=== PATIENT | male | born 1970 | race Caucasian/White ===

== ENCOUNTER 2017-01-19 16:33 | Inpatient (IN) | payer OTHER ==
--- NOTE | ~2017-01-19 | CO ---
Unit #: [id number] #: [id number] Patient: NADINE OWENS [id number] [address] [place], [place] [address] [id number] I MR#: [id number] NAME: NADINE OWENS ROOM: [facility] Age: 46 Sex: M Admission Date: 01/19/2017 : 1970 Attending Physician: Wali Romano M.D. Primary Care Physician: Daniela Primary Care Physician Consultation Date: 01/21/2017 CONSULTATION REPORT REASON FOR CONSULT Presumed acute kidney injury. HISTORY OF PRESENT ILLNESS Mr. Owens 46-year-old gentleman currently on the ventilator and sedated and not able to give any history. History was obtained from the chart and nursing staff. The patient had presented to the emergency room yesterday with trouble walking and feeling weak. Per the records, he developed respiratory distress and had to be intubated. Initial evaluation showed that he had a significant bilateral pneumonia and he has been started on broad-spectrum antibiotics. We were asked to see due to abnormal kidney function on admission. Unfortunately I do not have any recent creatinines to compare these to as he has not had a chemistry in the computer here for a number of years. He does have a history of hypertension so he may very well have some underlying chronic kidney disease and his sugars were high on admission as well. Due to his IV drug abuse an echo was done which did not show any vegetations but he only had an ejection fraction of 15%. Cardiology has placed him on dobutamine. He is making urine that is nonbloody. He is currently comfortable and on the vent. PAST MEDICAL HISTORY Past medical history is significant for hypertension, hypothyroidism, hyperlipidemia. HOME MEDICATIONS Home meds are levothyroxine, baby aspirin, Lipitor 80 mg daily and Maxzide one tablet daily. CURRENT HOME MEDICATIONS Current hospital medications are as follows. He is on vancomycin per pharmacy dosing, DuoNeb inhaler, Protonix 40 mg IV daily, Lovenox 40 mg subcu daily, baby aspirin daily, levothyroxine 175 mcg daily, propofol drip, clindamycin 600 mg IV q.8 h., cefepime 2 g IV q.24 h., dobutamine drip at 5 mcg/kg per minute, fentanyl drip and PRNs. ALLERGIES He has no known allergies. FAMILY HISTORY His girlfriend is in the room and she is unaware of any family history of kidney disease. SOCIAL HISTORY Unit #: [id number] #: [id number] Patient: NADINE OWENS Patient is an IV drug abuser. She says that he does not smoke or abuse any alcohol. REVIEW OF SYSTEMS A complete 12-point review of systems was attempted with the above findings. Further review of systems was simply unable to be obtained with the patient being on the ventilator. He is not running any fevers this morning. There have been no reports of hematuria, nausea, vomiting, diarrhea or hemoptysis. Unless otherwise indicated the review of systems was not able to be obtained. PHYSICAL EXAMINATION VITAL SIGNS: Temp 98.8, pulse 91, respiratory rate 20, blood pressure 103/55, lowest blood pressure got down to 83/42. Blood pressure initially was 170/110 on the second check here in the hospital. Is and Os are positive by 1200 mL. Urine output was recorded as 1250 mL. GENERAL: This is a 46-year-old male, sedated, on the ventilator, currently in no acute distress. HEENT: Head is normocephalic and atraumatic. Eyes show pale conjunctivae. No nasal drainage or nosebleed. Patient is orally intubated. NECK: Shows no rigidity. HEART: Currently regular rate and rhythm with no significant murmur or rub appreciated. LUNGS: Have coarse breath sounds with rales present bilaterally. Breathing is nonlabored on the ventilator. FIO2 is 69%. ABDOMEN: Abdomen is soft. No mass is appreciated. There are some bowel sounds present. No rebound or guarding noted. EXTREMITIES: No lower extremity cyanosis or clubbing. He has trace lower extremity edema. SKIN: Skin is dry with no rashes. Do see needle gutierrez in his arms. GENITOURINARY EXAM: Abdullahi catheter is in place with nonbloody urine. MUSCULOSKELETAL EXAM: No joint effusions noted. LYMPHATIC EXAM: There is no neck cervical lymphadenopathy. PSYCHIATRIC EXAM: Unable to be obtained. DIAGNOSTIC STUDIES LABORATORY: Urine culture is negative thus far. BNP this morning was just 114. TSH 0.58. Chemistry this morning sodium 135, potassium 3.9, chloride 99, bicarb 26, glucose 174, BUN 43, creatinine up to 2.1. Triglycerides were noted to be 533. ABG showed a pH of 7.29, pCO2 of 56, pO2 239, bicarb of 27. INR was 1.1. White count 8.7, hemoglobin 9.5, platelet count 205. Blood cultures are pending at this time. Creatinine yesterday was 1.5 with a procalcitonin of 18. UA on admission shoed 1+ protein with 0 to 2 red blood cell and some hyalin casts. Urine drug screen was positive for methadone, amphetamine ad opiates. Admission creatinine was 2, admission sodium 131m admission potassium 3.3. Prior labs here showed a creatinine of 1 but this was way back in 2007. His creatinine went from 2 to 1.5, now to 2.1 over the past few days. IMAGING: CT of the chest and chest x-ray were noted for bilateral pneumonia. No previous kidney imaging in the computer noted here. ASSESSMENT AND PLAN Unit #: [id number] #: [id number] Patient: NADINE OWENS 1. Acute kidney injury: Current baseline is not known but he does have a history of hypertension. I do note the elevated sugars on admission. I will check a hemoglobin A1C to see if he is a diabetic. His acute kidney injury is likely related to sepsis and pneumonia with significant hypotension over the past 24 hours. His home Maxzide is being held. He also has prerenal stress from his cardiomyopathy. We will continue supportive care for now but I will check a kidney ultrasound and a CPK level with his amphetamine use and elevated AST. His hepatitis and HIV screens are pending. Certainly if patient worsens over weekend dialysis may need to be started. 2. Congestive heart failure with an EF of 15%. The patient's BNP was on the lower side today. With his pneumonia and hypotension will hold off on any diuretics at this time. 3. Hypokalemia: This is improved with replacement. 4. Hyponatremia: This was on an initial chemistry and is likely due to his initial elevated sugar level. This is corrected now. 5. Pneumonia with respiratory failure on antibiotics: I will start the patient on some Florastor as he is on clindamycin. 6. IV drug abuse. 7. Questionable diabetes. 8. We will start tube feeds. 9. I did discuss these issues with the patient's girlfriend . I would like to thank Dr. Diaz for this consult and the opportunity to participate in the evaluation and care of Mr. Owens. Dictated by... Cristofer Rodriguez Jr., M.D. DEWEY/zaid TD: 01/21/2017 23:07 JOB #: [id number] CONSULTATION REPORT Page 1 of 1 X Cristofer Rodriguez MD X CONSULTATION REPORT
--- NOTE | ~2017-01-19 | CR72 ---
[facility] A Service of [facility] & [facility] RADIOLOGY TEXT RESULTS PATIENT: NADINE TAYLOR LOCATION: [address] : [birth year] UNIT #: [id number] AGE: [address]: Brady Hernandez MD SEX: M ORDER DR: [id number] [facility] [address] [facility]. [place], [place] [address] [id number] I MR#: [id number] Acc #: [id number] NAME: NADINE TAYLOR : 1970 SEX: M STUDY DATE/TIME: 02/06/2017 5:30 UNIT: [facility] ROOM: [facility] STUDY DESCRIPTION: CR Chest Single View Portable Attending Physician: Brday Hernandez M.D. Ordering Physician: Brady Hernandez M.D. Primary Care Physician: No Primary Care Physician MEDICAL IMAGING REPORT This report is preliminary unless electronic signature is present EXAM Frontal chest 02/06/2017 INDICATIONS 46-year-old male with respiratory failure and sepsis. Symptoms for 18 days. Acute renal injury on hemodialysis. Drug abuse, hypertension. COMPARISON Frontal chest compared with 02/05/2017 FINDINGS Preexisting tubes and lines appear to be in satisfactory position. Enteric tube tip not in the field of view, but below the diaphragm. Cardiac silhouette is stable. Eventration or elevation of the right hemidiaphragm unchanged. Opacities in the right lung base persist. No pneumothorax or dense consolidation. Cardiac silhouette stable. IMPRESSION No significant change from 02/05/2017 for technical factors. Dictated by... Omega Marina M.D. THIS IS AN ELECTRONICALLY VERIFIED REPORT Omega Marina M.D. at 02/06/2017 4:12 PM Eleazar TD: 02/06/2017 14:09 JOB #: [id number] MEDICAL IMAGING REPORT Page 1 of 1 COPY
--- NOTE | ~2017-01-19 | CR72 ---
[facility] A Service of [facility] & [facility] RADIOLOGY TEXT RESULTS PATIENT: NADINE TAYLOR LOCATION: [address] : [birth year] UNIT #: [id number] AGE: [address]: Brady Hernandez MD SEX: M ORDER DR: [id number] [facility] [address]. [place], [place] [address] [id number] I MR#: [id number] Acc #: [id number] NAME: NADINE TAYLOR : 1970 SEX: M STUDY DATE/TIME: 02/14/2017 4:39 UNIT: [facility] ROOM: [facility] STUDY DESCRIPTION: CR Chest Single View Portable Attending Physician: Brady Hernandez M.D. Ordering Physician: Jacqueline Woody M.D. Primary Care Physician: No Primary Care Physician MEDICAL IMAGING REPORT This report is preliminary unless electronic signature is present EXAM Portable chest. INDICATION Followup tracheostomy tube and central venous catheters. FINDINGS This portable view of the chest compared with yesterday's study. The lungs remain clear. The tracheostomy tube and central venous catheters appear stable. There has been no change. Dictated by... Sohan Montoya M.D. THIS IS AN ELECTRONICALLY VERIFIED REPORT Sohan Montoya M.D. at 02/14/2017 1:36 PM FEL/jorge luis TD: 02/14/2017 13:15 JOB #: [id number] MEDICAL IMAGING REPORT Page 1 of 1 COPY
--- NOTE | ~2017-01-19 | CR72 ---
[facility] A Service of [facility] & [facility] RADIOLOGY TEXT RESULTS PATIENT: NADINE TAYLOR LOCATION: [address] : [birth year] UNIT #: [id number] AGE: [address]: Brady Hernandez MD SEX: M ORDER DR: [id number] [facility] [address] [facility]. [place], [place] [address] [id number] I MR#: [id number] Acc #: [id number] NAME: NADINE TAYLOR : 1970 SEX: M STUDY DATE/TIME: 02/07/2017 4:41 UNIT: [facility] ROOM: [facility] STUDY DESCRIPTION: CR Chest Single View Portable Attending Physician: Brady Hernandez M.D. Ordering Physician: Brady Hernandez M.D. Primary Care Physician: No Primary Care Physician MEDICAL IMAGING REPORT This report is preliminary unless electronic signature is present EXAM Portable chest, 02/07. INDICATION Respiratory failure. Sepsis. FINDINGS AP portable chest compared with 02/06/2017. Tubes and lines are unchanged and well positioned. There is continued elevation of the right hemidiaphragm with some right base atelectasis. Lungs are otherwise clear. No pneumothorax. Heart size normal. Dictated by... Geo Chaudhry Jr., M.D. THIS IS AN ELECTRONICALLY VERIFIED REPORT Geo Chaudhry Jr., M.D. at 02/07/2017 3:48 PM CHANTELL/norberto TD: 02/07/2017 14:09 JOB #: [id number] MEDICAL IMAGING REPORT Page 1 of 1 COPY
--- NOTE | ~2017-01-19 | CT57 ---
[facility] A Service of [facility] & [facility] RADIOLOGY TEXT RESULTS PATIENT: NADINE TAYLOR LOCATION: [address] : [birth year] UNIT #: [id number] AGE: [address]: Wali Romano MD SEX: M ORDER DR: [id number] [facility] [address] [facility]. [place], [place] [address] [id number] I MR#: [id number] Acc #: [id number] NAME: NADINE TAYLOR : 1970 SEX: M STUDY DATE/TIME: 01/26/2017 16:16 UNIT: [facility] ROOM: [facility] STUDY DESCRIPTION: CT Chest Wo Cont Attending Physician: Wali Romano M.D. Ordering Physician: Physician Non-Staff Primary Care Physician: No Primary Care Physician MEDICAL IMAGING REPORT This report is preliminary unless electronic signature is present EXAM CT of chest without contrast. INDICATIONS Hypoxic respiratory failure. Patient has a history of ARDS and pneumonia. TECHNIQUE Axial CT images were obtained from the thoracic inlet through the dome of the diaphragm. This CT exam was performed with one or more of the following radiation dose reduction techniques: automatic exposure control, adjustment of mA and/or kV according to patient size, and iterative reconstruction. No intravenous contrast material was administered. Comparison made to prior exam from January 19, 2017. FINDINGS Dense consolidation within both lungs seen on prior CT have almost completely resolved. Patient is noted, however, to have diffuse ground-glass infiltrates seen throughout both lungs, which certainly could reflect ARDS in later stages. There is some persistent dependent atelectasis noted and the thyroid gland appears unremarkable. Patient's endotracheal tube terminates above the cyn. There is a right internal jugular vein catheter, which terminates within the right atrium, as well as a left internal jugular vein central venous line, which terminates in the superior vena cava. Thoracic aorta measures within normal size limits. Weighted enteric feeding tube extends into the distal stomach. There is no pleural or pericardial effusion. Review of bony windows does not demonstrate any aggressive osseous abnormalities. Patient does appear to have dilatation of the aortic root measuring up to 4.3 cm. Images through the upper abdomen, I do not think demonstrate any acute abnormalities. IMPRESSION 1. Previously identified dense bilateral infiltrates have almost STS. [facility] A Service of [facility] & [facility] RADIOLOGY TEXT RESULTS PATIENT: NADINE TAYLOR LOCATION: [facility] CICCU2-10 : [birth year] UNIT #: [id number] AGE: [address]: Wali Romano MD SEX: M ORDER DR: completely resolved. Patient is, however, noted to have extensive ground-glass infiltrates throughout both lungs with probably some areas of interlobular septal thickening as well. I think, given history, that this certainly reflects evolving ARDS. There is some persistent dependent atelectasis noted at the lung bases bilaterally. 2. Tubes and lines as noted above. 3. Please see the body of the report for any other additional incidental findings. Dictated by... Naima Kitchen M.D. THIS IS AN ELECTRONICALLY VERIFIED REPORT Naima Kitchen M.D. at 01/28/2017 3:27 PM AFF/pc TD: 01/28/2017 09:01 JOB #: [id number] MEDICAL IMAGING REPORT Page 1 of 1 COPY
--- NOTE | ~2017-01-19 | CT57 ---
[facility] A Service of [facility] RADIOLOGY TEXT RESULTS PATIENT: NADINE TAYLOR LOCATION: CICCU2 CICCU2 : [birth year] UNIT #: [id number] AGE: [address]: TATIANNA GRANT MD SEX: M ORDER DR: [id number] [address] [place] [place], [place] [address] [id number] I MR#: [id number] Acc #: [id number] NAME: NADINE TAYLOR : 1970 SEX: M STUDY DATE/TIME: 01/19/2017 23:12 UNIT: [facility] ROOM: [facility] STUDY DESCRIPTION: CT Chest Wo Cont Attending Physician: Tatianna Grant M.D. Ordering Physician: Brennen Hill M.D. Primary Care Physician: Primary Care Physician No MEDICAL IMAGING REPORT This report is preliminary unless electronic signature is present EXAM CT scan of the chest without contrast INDICATION Abnormal chest x-ray showing diffuse bilateral infiltrates. Shortness of air. Symptoms started today. TECHNIQUE This CT exam was performed with one or more of the following radiation dose reduction techniques: automatic exposure control, adjustment of mA and/or kV according to patient size, and iterative reconstruction. FINDINGS Axial 5 mm images were obtained through the chest without contrast. The endotracheal tube is in good position 2 cm above the cyn. There are dense confluent infiltrates throughout the lungs. This involves almost the entire right upper lobe and most of the left upper lobe. There are air bronchograms visible bilaterally. There is relative sparing of the superior segments of the left lower lobe and dense consolidation is present throughout the rest of the lower lobes. There are no effusions. The visualized portions of the upper abdomen are normal. Bones are unremarkable. IMPRESSION 1. Extremely dense bilateral infiltrates throughout most of the lungs with air bronchograms visible bilaterally. The bronchi and trachea are patent. 2. The endotracheal tube is in good position. Findings suggest dense pneumonia. [facility] A Service [facility] RADIOLOGY TEXT RESULTS PATIENT: NADINE TAYLOR LOCATION: CICCU2 CICCU2 : [birth year] UNIT #: [id number] AGE: [address]: TATIANNA GRANT MD SEX: M ORDER DR: Dictated by... Sohan Montoya M.D. THIS IS AN ELECTRONICALLY VERIFIED REPORT Sohan Montoya M.D. at 01/20/2017 5:56 AM YFN/jose luis TD: 01/20/2017 00:59 JOB #: [id number] MEDICAL IMAGING REPORT Page 1 of 1 COPY
--- NOTE | ~2017-01-19 | CR72 ---
[facility] A Service of [facility] RADIOLOGY TEXT RESULTS PATIENT: NADINE TAYLOR LOCATION: [address] : [birth year] UNIT #: [id number] AGE: [address]: Wali Romano MD SEX: M ORDER DR: [id number] [facility] [address]. [place], [place] [address] [id number] I MR#: [id number] Acc #: [id number] NAME: NADINE TAYLOR : 1970 SEX: M STUDY DATE/TIME: 02/04/2017 5:49 UNIT: [facility] ROOM: [facility] STUDY DESCRIPTION: CR Chest Single View Portable Attending Physician: Wali Romano M.D. Ordering Physician: Jacqueline Woody M.D. Primary Care Physician: No Primary Care Physician MEDICAL IMAGING REPORT This report is preliminary unless electronic signature is present EXAM Frontal chest, 02/04/2017 INDICATIONS Respiratory failure. Ventilator patient. Overdose patient. Weakness, shortness of air, cough. Symptoms began 15 days ago. TECHNIQUE Frontal chest was performed compared 02/03/2017. FINDINGS Preexisting tubes and lines in satisfactory position. Interval removal of a right-sided central line from a neck approach. New large-bore catheter from a right-sided approach terminates at the cavoatrial junction level. Cardiac silhouette is stable. Persistent atelectasis or infiltrate in the right lung base. No new effusion or pneumothorax. Vascularity within normal limits. IMPRESSION 1. Persistent atelectasis or infiltrate in the right lung base. 2. Tubes and lines in satisfactory position. Dictated by... Omega Marina M.D. THIS IS AN ELECTRONICALLY VERIFIED REPORT Omega Marina M.D. at 02/04/2017 3:31 PM Roberth TD: 02/04/2017 13:31 JOB #: [id number] [facility] A Service of [facility] RADIOLOGY TEXT RESULTS PATIENT: NADINE TAYLOR LOCATION: [facility] CICCU2-10 : [birth year] UNIT #: [id number] AGE: [address]: Wali Romano MD SEX: M ORDER DR: MEDICAL IMAGING REPORT Page 1 of 1 COPY
--- NOTE | ~2017-01-19 | CR72 ---
[facility] A Service of [facility] & [facility] RADIOLOGY TEXT RESULTS PATIENT: NADINE TAYLOR LOCATION: [address] : [birth year] UNIT #: [id number] AGE: [address]: Wali Romano MD SEX: M ORDER DR: [id number] [facility] [address] [place], [place] [address] [id number] I MR#: [id number] Acc #: [id number] NAME: NADINE TAYLOR : 1970 SEX: M STUDY DATE/TIME: 01/23/2017 9:24 UNIT: [facility] ROOM: [facility] STUDY DESCRIPTION: CR Chest Single View Portable Attending Physician: Wali Romano M.D. Ordering Physician: Rashi Berg M.D. MEDICAL IMAGING REPORT This report is preliminary unless electronic signature is present EXAM Portable chest INDICATIONS Central line placement. COMPARISON STUDIES Comparison with earlier today. FINDINGS Interval placement of a right IJ central venous catheter with tip projecting over the region of the cavoatrial junction. No pneumothorax. No other change is seen. Persistent diffuse bilateral pulmonary infiltrates. IMPRESSION Right IJ central venous catheter tip projects in the region of the cavoatrial junction. No evidence for pneumothorax. Dictated by... Brice Frank M.D. THIS IS AN ELECTRONICALLY VERIFIED REPORT Brice Frank M.D. at 01/24/2017 7:50 AM ARS/pcl TD: 01/23/2017 13:35 JOB #: [id number] MEDICAL IMAGING REPORT Page 1 of 1 COPY
--- NOTE | ~2017-01-19 | CR72 ---
[facility] A Service of [facility] & [facility] RADIOLOGY TEXT RESULTS PATIENT: NADINE TAYLOR LOCATION: [address] : [birth year] UNIT #: [id number] AGE: [address]: Wali Romano MD SEX: M ORDER DR: [id number] [facility] [address] [facility]. [place], [place] [address] [id number] I MR#: [id number] Acc #: [id number] NAME: NADINE TAYLOR : 1970 SEX: M STUDY DATE/TIME: 01/24/2017 05:09 UNIT: [facility] ROOM: [facility] STUDY DESCRIPTION: CR Chest Single View Portable Attending Physician: Wali Romano M.D. Ordering Physician: Sherry Celis M.D. Primary Care Physician: Primary Care Physician No MEDICAL IMAGING REPORT This report is preliminary unless electronic signature is present EXAM Portable chest, 01/24 at 05:09 INDICATION Respiratory failure FINDINGS AP portable chest is compared with 01/23/2017. ET tube and right IJ line are in good position. Bilateral infiltrates are again seen, left worse than right. They do appear improved overall in both lungs. No pneumothorax. Dictated by... Geo Chaudhry Jr., M.D. THIS IS AN ELECTRONICALLY VERIFIED REPORT Geo Chaudhry Jr., M.D. at 01/24/2017 9:16 PM CHANTELL/cathleen TD: 01/24/2017 11:03 JOB #: [id number] MEDICAL IMAGING REPORT Page 1 of 1 COPY
--- NOTE | ~2017-01-19 | FU ---
[facility] Nutrition Therapy DATE: 02/01/17 Patient: NADINE TAYLOR Physician: JOSEF Address: [address] Room/Bed: [address], Zip: [place] [address] Admit Date: 01/19/17 Date of : [birth year] Height: 6 1 Weight: 224 102 NUTRITION MONITORING/FOLLOW-UP: Reason: Enteral nutrition follow-up Dx: weakness, MIRANDA, respiratory failure, sepsis, ?OD Anthropometrics: ht: 5'11" wt: 224# (102 kg) (bed scale 02/01) BMI: 31 -weight since admit rang 224-260# Labs: Na+ 134, Glu 196, accuchecks 140, BUN 148, Creat 6.7, GFR 8.9 Meds: synthroid, coreg, zyvox, NaCl, precedex, heparin, versed I&O's: 2510/2593. BM 02/01 Skin: Previously noted. Estimated Nutrition Needs: 3552-8072 kcal 118-141 g protein Assessment: Chart reviewed, events noted. Pt continues to be on the vent in ICU. Pt continues to receive Nepro @ 55 mL/hr x 22 hours (holding TF one hour before and one hour after synthroid administration) + sugar-free Prostat BID, receiving ~76% of estimated goal volume. Pt is no longer receiving CRRT, now on dialysis. No family in room at time of visit. RD to continue to follow. Dx: Inadequate protein-energy intake r/t current diagnosis, vent dependence AEB pt receiving alternative nutrition support -active Intervention: 1. Enteral nutrition support Monitoring, Evaluation, and Goals: 1. Enteral nutrition support; provide >80% goal volume at goal -IN PROGRESS/NOT MET 2. Weights; promote gradual weight loss towards healthy BMI -IN PROGRESS 3. Labs; WNL - NOT MET/IN PROGRESS 4. GI; promote regular GI function -MET/ IN PROGRESS Monitor: -weights -labs -extubation [facility] Nutrition Therapy DATE: 02/01/17 Patient: NADINE TAYLOR Physician: JOSEF Address: [address] Room/Bed: [address], Zip: [place] [address] Admit Date: 06/14/17 Date of : [birth year] Height: 6 1 Weight: 224 102 -GI Recommendations: 1. PLEASE OBTAIN UPDATED PHOS LEVEL TO FURTHER DETERMINE RENAL STATUS 2. Continue current enteral nutrition support of Nepro @ 55 mL/hr x 22 hours + sugar-free Prostat BID (hold one hour before and one hour after synthroid administration). This provides 2738 kcal, 128 g protein, 883 mL h20. Free water flushes per MD. 3. If pt's electrolyes continue to be WNL, recommend to change current enteral nutrition support to Jevity 1.5 @ 20 mL/hr, advance 10 mL q 4 hours to goal rate of 65 mL x 22 hours + sugar-free Prostat BID. This provides 2345 kcal, 121 g protein, 1087 mL free h20. Add free h20 flushes per MD. 4. 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 Respectfully, ALIVIA ROLAND, credit intern Nida Wilkinson MS, RD,LD [facility] cc: client file
--- NOTE | ~2017-01-19 | FU ---
[facility] Nutrition Therapy DATE: 01/27/17 Patient: NADINE TAYLOR Physician: JOSEF Address: [address] [place] [address] Room/Bed: [address], Zip: [place] [address] Admit Date: 01/19/17 Date of : 66 Height: 6 1 Weight: 228 103.5 NUTRITION MONITORING/FOLLOW-UP: Reason: PT SEEN FOR FOLLOW-UP/ENTERAL NUTRITION SUPPORT DX: WEAKNESS, MIRANDA, RESPIRATORY FAILURE, SEPSIS, ?OD Anthropometrics: 5'11", WT: 231# (105 KG), BMI: 32.2 -ADMIT WEIGHT: 260# Labs: GLU: 189, CREAT: 0.5, ALB: 2.5, AST: 87, ALT: 53, GFR: 54.3 Meds: NACL, MAG SULFATE, VERSED, SYNTHROID, LEVOTHROID, PROPOFOL (OFF), FENTANYL, PROTONIX I&O's: 62405/7474 Skin: ISSUES PREVIOUSLY NOTED Estimated Nutrition Needs: 3312-8921 KCAL 118-141 G PRO Assessment: CHART REVIEWED AND EVENTS NOTED. PT SEEN FOR ENTERAL NUTRITION SUPPORT FOLLOW-UP. PT CONTINUES TO BE INTUBATED AND SEDATED AT TIME OF VISIT RECEIVING ALTERNATIVE NUTRITION SUPPORT OF NEPRO @ 55 ML/HR X 22 HOURS (PT ON SYNTHROID-HOLD ONE HOURE BEFORE AND ONE HOUR AFTER ADMINISTRATION) + SUGAR-FREE PROSTAT BID. PT CURRENTLY RECEIVING CRRT AT TIME OF VISIT. PER RN AND CHART, PT TOLERATING ENTERAL NUTRITION, NO ISSUES NOTED. PER PUMP HISTORY, PT RECEIVING ~77% ESTIMATED GOAL VOLUME PAST 24 HOURS. NO FAMILY IN ROOM AT TIME OF VISIT. RD TO CONTINUE TO FOLLOW. Dx: INADEQUATE PROTEIN-ENERGY INTAKE R/T CURRENT DIAGNOSIS, VENT DEPENDENCE AEB PT RECEIVING ALTERNATIVE NUTRITION SUPPORT.-ACTIVE OBESITY CLASS II R/T LIFESTYLE AEB BMI OG 36.1-ACTIVE Intervention: 1. ENTERAL NUTRITION SUPPORT Monitoring, Evaluation and Goals: 1. ENTERAL NUTRITION SUPPORT; PROVIDE >80% GOAL VOLUME AT GOAL-NOT MET/IN PROGRESS 2. WEIGHTS; PROMOTE GRADUAL WEIGHT LOSS TOWARDS HEALTHY BMI-IN PROGRESS 3. LABS; WNL: NOT MET/IN PROGRESS 4. GI; PROMOTE REGULAR GI FUNCTION-IN PROGRESS MONITOR: -WEIGHTS [facility] Nutrition Therapy DATE: 01/27/17 Patient: NADINE TAYLOR Physician: JOSEF Address: [address] [place] [address] Room/Bed: [address], Zip: [place] [address] Admit Date: 01/19/17 Date of : [birth year] Height: 6 1 Weight: 228 103.5 -TF RATE/RESIDUALS -LABS -EXTUBATION? Recommendations: 1. RECOMMEND TO CONTINUE CURRENT ENTERAL NUTRITION SUPPORT OF NEPRO @ 55 ML/HR X 22 HOURS (PT ON SYNTHROID-HOLD ONE HOUR BEFORE AND ONE HOUR AFTER ADMINISTRATION) + SUGAR-FREE PROSTAT BID -TOTAL PROVIDES 2378 KCAL, 128 G PRO, 883 ML FREE H20 CONTINUE FREE H20 FLUSHES PER MD 2. IF PT'S ELECTROLYTES CONTINUE TO BE WITHIN NORMAL LIMITS, RECOMMEND TO CHANGE CURRENT ENTERAL NUTRITION SUPPORT TO JEVITY 1.5 @ 20 ML/HR, ADVANCE 10 ML q 4 HOUR TO GOAL RATE OF 65 ML/HR X 22 HOURS + SUGAR-FREE PROSTAT BID -PROVIDES 2345 KCAL, 121 G PRO, 1087 ML FREE H20 ADD FREE H20 FLUSHES PER MD RD WILL F/U PER PROTOCOL PT IS MOD/SEVERELY COMPROMISED Respectfully, ALANNA KIRKPATRICK MS, RD, LD Food and Nutritional Services [facility] cc: client file
--- NOTE | ~2017-01-19 | CO ---
Unit #: [id number] #: [id number] Patient: NADINE TAYLOR [id number] [facility] [address] [facility]. [place], [place] [address] [id number] I MR#: [id number] NAME: NADINE TAYLOR ROOM: CICCU2 Age: 46 Sex: M Admission Date: 01/19/2017 : 1970 Attending Physician: Wali Romano M.D. Consultation Date: 02/01/2017 CONSULTATION REPORT PRIMARY CARE PHYSICIAN Not listed. CONSULTING PHYSICIAN Dr. Brady Hernandez. REASON FOR CONSULTATION Evaluation of cognitive function. PATIENT IDENTIFICATION This is a 46-year-old, unknown handedness, male, evaluated in ICU #10 at [facility]. SOURCE OF INFORMATION Obtained from the medical record and medical staff. HISTORY OF PRESENT ILLNESS This is a 46-year-old, unknown handedness, male with a past medical history of hypertension, hypothyroidism, hyperlipidemia, as well as drug use, who presents to [facility] with acute respiratory failure, altered mental status, and weakness. Apparently, he came to the ED with a several-day history of feeling weak. He apparently became disoriented and was in respiratory distress. He received Narcan in the emergency room where he became very agitated and required intubation and sedation. The patient has been admitted here and has been treated by multiple physicians for multiple comorbidities, primarily acute respiratory failure, sepsis, pneumonia, and multiorgan failure including acute kidney injury, for which he has required hemodialysis. He is also being treated by Cardiology. He has cardiomyopathy with an EF of 10%. His urine tox screen upon arrival was positive for methadone, amphetamines, and opioids. He has been seen by ID for fever, though he did not have a fever on arrival. I am concerned about nosocomial infection with multiorgan failure. The patient continues to require intubation. He is on ketamine and small dose of fentanyl per drip. The patient's vital signs including his blood pressure being maintained currently, off pressors though he has had episodes of hypotension and hypoxia throughout his hospital stay. Neurology was asked to evaluate further given his ongoing impairment of mental status, to essentially evaluate overall cognitive function and to evaluate for possible anoxic encephalopathy. On evaluation, the patient is intubated. He is receiving some sedation. He withdraws from noxious stimuli, but is not purposeful. He does not follow commands. He does not consistently visually track. He will move his eyes inconsistently and sometimes rhythmically. He appears to have labored breathing on the ventilator. He certainly does not appear Unit #: [id number] #: [id number] Patient: NADINE TAYLOR to be following commands consistently or inconsistently or visually tracking at this time. He does appear to respond to threats in the primary visual mirza. He is not responding to verbal commands or mimic. He had a head CT scan done on 01/19 on arrival that was unremarkable for any acute abnormalities. He also had a CT scan of the head repeated on 01/26/2017 that per report does not show any change, the imaging was reviewed. No significant change seen. PAST MEDICAL HISTORY As per medical record. Positive for, 1. Hypertension. 2. Hypothyroidism. 3. Hyperlipidemia. 4. Knee surgery. 5. Polysubstance abuse with IV drug abuse with heroin. ALLERGIES No known drug allergies. HOME MEDICATIONS 1. Levothyroxine sodium 175 mcg p.o. daily. 2. Aspirin 81 mg p.o. daily. 3. Atorvastatin 80 mg p.o. daily. 4. Maxzide 37.5/25 mg one tablet p.o. daily. FAMILY HISTORY Unknown. SOCIAL HISTORY Not known. REVIEW OF SYSTEMS Unable to obtain from the patient given his mental status. PHYSICAL EXAMINATION VITAL SIGNS: Temperature 98.6. He has had a fever during this hospital stay. He has been afebrile for the last 24 to 48 hours. Pulse 102, respirations 30, blood pressure 146/74. He has had some episodes of hypotension. Oxygen saturation is 95% with episodes of hypoxia in beginning of his hospital stay. NEUROLOGIC: The patient is intubated. He is on some sedation. He does not follow commands. On exam, he does have his eyes open. He responds to threats in the primary visual mirza. Eyes appear to be conjugate. He has some rhythmic movements of his eyes parallel with his breathing. Does not appeared to truly visually track. Certainly, he is not following commands consistently or inconsistently. Pupils appear to be reactive, but difficult to evaluate. Cranial nerve exam, he responds to threats in the primary visual mirza. Again, eyes are conjugate. Does not appear to have any ptosis or nystagmus or hippus. Unable to evaluate sensation of his scalp or strength of the muscles of the facial expression. Hearing is unable to be fully evaluated. Tongue, uvula, and palate are unable to be evaluated. No meningismus noted. Unable to assess independent head turning or shoulder shrug given the patient's inability to cooperate or follow commands. Motor exam, he withdraws bilaterally from noxious stimuli. No triple flexion seen. No posturing seen. Sensory exam, withdraws from noxious stimuli bilaterally. Gait and Romberg, deferred. Reflexes, not elicited. Toes are equivocal. Coordination, unable to assess. Unit #: [id number] #: [id number] Patient: NADINE TAYLOR DIAGNOSTIC STUDIES IMAGING STUDIES: CT of the head and repeat CT of the head as discussed above. LABORATORY RESULTS: Urine toxic screen, as discussed above. Blood gas from today shows a pH of 7.341, pCO2 of 31.9, pO2 of 122, bicarb 17.2, and O2 saturation 97.2% on 40% FiO2. Glucose 196, BUN 148, creatinine 6.7, estimated GFR 8.9, sodium 134, potassium 3.9, chloride 101, CO2 is 18, and calcium 8.4. White blood cell count 13.8, hemoglobin 7.5, hematocrit 24.3, and platelet count 192. Other lab done and diagnostic studies are as per chart and have been reviewed. IMPRESSION 1. Encephalopathy, questionable hypoxic versus toxic and metabolic. Check MRI of the brain. The patient is on sedation. He is intubated. 2. Sepsis. 3. Acute respiratory distress syndrome. 4. Acute kidney injury. 5. Left ventricular ejection fraction of 10%. 6. Episode of nonsustained supraventricular tachycardia, cardiology following. 7. IV drug abuse. PLAN The patient has had multiorgan failure, sepsis, and IV drug abuse. Continues to have altered mental status with no improvement neurologically. He had initial head CT on 01/[address] scan done on the 01/26. He continued to not follow commands even with repeated stimulation. He certainly has multiple issues and comorbidities, but must further evaluate for possible hypoxia versus toxic and metabolic etiology. Request MRI of the brain and EEG. He is off pressors with good BP currently and he is stable to travel for MRI with nursing in the monitor. Case was discussed with Dr. Coffman, he agrees with the above. We will follow along with you closely. We thank you very much for allowing us to assist in the care of this patient. Dictated by... Tereza Mathews A.P.R.N. for Anne Viera/cezar TD: 02/02/2017 13:41 JOB #: [id number] CONSULTATION REPORT Page 1 of 1 X Tereza Mathews FRENCH BINDER X CONSULTATION REPORT
--- NOTE | ~2017-01-19 | FU ---
[facility] Nutrition Therapy DATE: 02/09/17 Patient: NADINE TAYLOR Physician: JOSEF Address: [address] Room/Bed: [address], Zip: [place] [address] Admit Date: 01/19/17 Date of : [birth year] Height: 6 1 Weight: 198 90 NUTRITION MONITORING/FOLLOW-UP: Reason: PT SEEN FOR FOLLOW-UP/ENTERAL NUTRITION SUPPORT DX: WEAKNESS, MIRANDA, RESP FAILURE, SEPSIS Anthropometrics: 5'11", WT: 196# (89 KG), BMI: 27.3 -WEIGHTS RANGE 224-260# Labs: GLU: 141, BUN: 95, CREAT: 2.4, CA+:8.4, ALB: 3.3, AST: 60, ALT: 56, PHOS: 9.8, GFR: 30.8, NA+:132 Meds: FENTANYL, VERSED, NOVOLOG, MANNITOL, SYNTHROID (PEG), LEVOTHROID, PROTONIX, NACL I&O's: 1960/ Skin: NO KNOWN SKIN ISSUES Estimated Nutrition Needs: 5566-3460 KCAL 118-141 G PRO Assessment: CHART REVIEWED AND EVENTS NOTED. PT SEEN FOR ENTERAL NUTRITION SUPPORT FOLLOW-UP. PT CONTINUES TO BE INTUBATED AND SEDATED RECEIVING ALTERNATIVE NUTRITION SUPPORT OF JEVITY 1.5 @ 20 ML/HR. PER MD NOTES, PLANS TO ADVANCE CURRENT ENTERAL NUTRITION TO GOAL RATE OF 60 ML/HR + SUGAR-FREE PROSTAT BID. OF NOTE, PT IS S/P PEG AND TRACH PLACEMENT. ENTERAL NUTRITION WAS OFF 2' PROCEDURES EARLY THIS AM. NO FAMILY IN ROOM AT THIS TIME. RD TO CONTINUE TO FOLLOW. Dx: INADEQUATE PROTEIN-ENERGY INTAKE R/T CURRENT DIAGNOSIS, VENT DEPENDENCE AEB ALTERNATIVE NUTRITION SUPPORT IN PLACE.-ACTIVE NEW Dx: INADEQUATE ENTERAL NUTRITION SUPPORT INFUSION R/T ENTERAL NUTRITION NOT AT GOAL AEB PT RECEIVING ENTERAL NUTRITION @ 20 ML/HR. Intervention: 1. ENTERAL NUTRITION Monitoring, Evaluation and Goals: 1. ENTERAL NUTRITION; PROVIDE >80% TOTAL VOLUME X 24 HOURS-NOT MET 2. WEIGHTS; PROMOTE GRADUAL WEIGHT LOSS TOWARDS HEALTHY BMI-IN PROGRESS 3. LABS; WNL-IN PROGRESS 4. GI; PROMOTE REGULAR GI FUNCTION-IN PROGRESS MONITOR: [facility] Nutrition Therapy DATE: 02/09/17 Patient: NADINE TAYLOR Physician: JOSEF Address: [facility] [address] Room/Bed: [address], Zip: [place] [address] Admit Date: 01/19/17 Date of : [birth year] Height: 6 1 Weight: 198 90 -TF RATE/RESIDUALS -WEIGHTS -LABS -EXTUBATION? Recommendations: 1. RECOMMEND TO CHANGE CURRENT ENTERAL NUTRITION SUPPORT BACK TO NEPRO @ 55 ML/HR + SUGAR-FREE PROSTAT BID X 22 HOURS (PT ON SYNTHROID-HOLD ONE HOURE BEFORE AND ONE HOUR AFTER ADMINISTRATION) 2' PT'S POOR RENAL FUNCTION. OF NOTE, PT'S PHOS LEVEL + CREAT/BUN LEVELS ELEVATED + PT ON HD. -PROVIDES 2378 KCAL, 128 G PRO, 883 ML FREE H20 CONTINUE FREE H20 FLUSHES PER MD 2. CONTINUE TO MONITOR RENAL FUNCTION STATUS RD WILL F/U PER PROTOCOL PT IS SEVERELY COMPROMISED Respectfully, ALANNA KIRKPATRICK MS, RD, LD Food and Nutritional Services [facility] cc: client file
--- NOTE | ~2017-01-19 | CR72 ---
[facility] A Service of [facility] & [facility] RADIOLOGY TEXT RESULTS PATIENT: NADINE TAYLOR LOCATION: [address] : [birth year] UNIT #: [id number] AGE: [address]: Wali Romano MD SEX: M ORDER DR: [id number] [facility] [address] [facility]. [place], [place] [address] [id number] I MR#: [id number] Acc #: [id number] NAME: NADINE TAYLOR : 1970 SEX: M STUDY DATE/TIME: 01/28/2017 5:50 UNIT: [facility] ROOM: [facility] STUDY DESCRIPTION: CR Chest Single View Portable Attending Physician: Wali Romano M.D. Ordering Physician: Jacqueline Woody M.D. Primary Care Physician: Primary Care Physician No MEDICAL IMAGING REPORT This report is preliminary unless electronic signature is present EXAM Portable chest 1-view, 01/28/2017 05:50 COMPARISON 01/27/2017 HISTORY Respiratory failure requiring intubation for nine days. FINDINGS Persistent slight elevation of the right hemidiaphragm but no consolidation. Mild interstitial prominence but lung aeration is slightly improved since 01/27. ET tube remains with tip 3.0-4.0 cm above the cyn and feeding tube, right IJ dialysis catheter and left IJ central line all remain in place. Mild elevation of the right hemidiaphragm persists. Dictated by... Adarsh Garcia M.D. THIS IS AN ELECTRONICALLY VERIFIED REPORT Adarsh Garcia M.D. at 01/28/2017 3:51 PM HIRAM/cathleen TD: 01/28/2017 10:48 JOB #: [id number] MEDICAL IMAGING REPORT Page 1 of 1 COPY
--- NOTE | ~2017-01-19 | CR72 ---
[facility] A Service of [facility] & [facility] RADIOLOGY TEXT RESULTS PATIENT: NADINE TAYLOR LOCATION: [address] : [birth year] UNIT #: [id number] AGE: [address]: Brady Hernandez MD SEX: M ORDER DR: [id number] [facility] [address] [facility]. [place], [place] [address] [id number] I MR#: [id number] Acc #: [id number] NAME: NADINE TAYLOR : 1970 SEX: M STUDY DATE/TIME: 02/05/2017 4:52 UNIT: [facility] ROOM: [facility] STUDY DESCRIPTION: CR Chest Single View Portable Attending Physician: Brady Hernandez M.D. Ordering Physician: Jacqueline Woody M.D. Primary Care Physician: No Primary Care Physician MEDICAL IMAGING REPORT This report is preliminary unless electronic signature is present EXAM Single view chest INDICATIONS Respiratory failure. Weakness. Cough. TECHNIQUE Single portable AP view of the chest COMPARISON 02/04/2017 FINDINGS Support lines and tubes remain in place. Heart and mediastinal contours are unchanged. There is minimal atelectasis in the right lower lobe. No pneumothorax. IMPRESSION No interval change. Dictated by... Hardy Mortensen M.D. THIS IS AN ELECTRONICALLY VERIFIED REPORT Hardy Mortensen M.D. at 02/06/2017 1:02 AM THEA/aryan TD: 02/05/2017 17:57 JOB #: [id number] MEDICAL IMAGING REPORT Page 1 of 1 COPY
--- NOTE | ~2017-01-19 | CR72 ---
[facility] A Service of [facility] RADIOLOGY TEXT RESULTS PATIENT: NADINE TAYLOR LOCATION: CICCU2 CICCU2-10 : [birth year] UNIT #: [id number] AGE: [address]: Wali Romano MD SEX: M ORDER DR: [id number] [facility] [address] [facility]. [place], [place] [address] [id number] I MR#: [id number] Acc #: [id number] NAME: NADINE TAYLOR : 1970 SEX: M STUDY DATE/TIME: 02/01/2017 17:00 UNIT: [facility] ROOM: [facility] STUDY DESCRIPTION: CR Chest Single View Portable Attending Physician: Wali Romano M.D. Ordering Physician: Ed Skyler Dean M.D. Primary Care Physician: Primary Care Physician No MEDICAL IMAGING REPORT This report is preliminary unless electronic signature is present EXAM Portable chest x-ray HISTORY Intubation today. AP radiograph of the chest is presented. COMPARISON 02/01/2017 at 05:49 hours. FINDINGS Interval placement of endotracheal tube which terminates 2.8 cm above cyn. Right internal jugular central venous catheter and left internal jugular central venous catheter unchanged. Enteric tube extends below diaphragm and off field of radiograph. Stable borderline cardiac enlargement. Lung volumes slightly lower than on prior examination. Pulmonary vasculature is abnormally prominent, more so than anticipated for bronchovascular crowding on the basis of lower lung volumes. There are increased peribronchial markings and increased interstitial markings in the perihilar regions bilaterally. Patchy airspace disease at the bilateral lung bases. Findings appear relatively symmetric in the bilateral lungs. Overall appearance favors mild to moderate pulmonary edema with interstitial and airspace components. There is no definite pleural effusion and there is no pneumothorax. Dictated by... Nadine Scott M.D. THIS IS AN ELECTRONICALLY VERIFIED REPORT Nadine Scott M.D. at 02/02/2017 12:11 PM [facility] A Service of [facility] RADIOLOGY TEXT RESULTS PATIENT: NADINE TAYLOR LOCATION: CICCU2 CICCU2-10 : [birth year] UNIT #: [id number] AGE: [address]: Wali Romano MD SEX: M ORDER DR: MONA/jose luis TD: 02/02/2017 01:09 JOB #: [id number] MEDICAL IMAGING REPORT Page 1 of 1 COPY
--- NOTE | ~2017-01-19 | FU ---
[facility] Nutrition Therapy DATE: 02/14/17 Patient: NADINE TAYLOR Physician: JOSEF Address: [address] Room/Bed: [address], Zip: [place] [address] Admit Date: 01/19/17 Date of : 66 Height: 6 1 Weight: 189 86 NUTRITION MONITORING/FOLLOW-UP: Reason: Enteral nutrition follow and consult to change to non-renal formula Anthropometrics: Ht: 6'1" Adm wt: 118 kg BMI: 34.3 IBW: 78.2 kg Wt 02/14: 86 KG Average weight since admission= 100 kg PLEASE NOTE: RD updated the pt's height and weight used for calculation based on RD and cooker cleaner, and also d/t weight fluctuation d/t HD. Pt's weight has been trending down since admission with weights ranging from 189-266# Labs: K+ 3.1 Gluc 206 BUN 109 Alb 2.6 AST 97 ALT 113 Accuchecks 132-153 GFR 58.6 Meds: Levophed, fentanyl, versed, novolog, mannitol, synthroid, levothroid, protonix, D5% I&O's: 2360/2680, last BM 02/14 Skin: PEG site to abdomen Scabbed abrasion left elbow Dermatitis BL shins/ feet Edema: BLE trace Generalized to trunk/ hips/ abdomen Estimated Nutrition Needs: (Using average weight 100 kg) 7220-9240 kcals (18-22 kcals/kg) 100-120 grams protein (1.0-1.2 grams/kg) Diet: NPO Assessment: Chart reviewed, events noted. Pt remains intubated in the ICU s/o trach and PEG. Pt is receiving enteral nutrition with Nepro @ 55 mL/hr x 22 hrs. RN reports that the pt has not been receiving prostat as recommended by RD. Per pump history, the pt has received 100% goal volume of enteral nutrition over the past 24 hrs. Renal MD consulted RD to change enteral nutrition to a non-renal formula due to low K+. The pt's renal function also seems to be improving per MD note. RD agrees with changing enteral nutrition formula. Please see recommendations below. Please refer to note above regarding the pt's weight. Dx: Inadequate protein-energy intake RT current diagnosis, ventilator dependence AEB alternative nutrition support in place- RESOLVING/ GOAL VOLUME EN BEING RECEIVED [facility] Nutrition Therapy DATE: 02/14/17 Patient: NADINE TAYLOR Physician: JOSEF Address: [address] Room/Bed: [address], Zip: [place] [address] Admit Date: 01/19/17 Date of : [birth year] Height: 6 1 Weight: 189 86 2) Inadequate enteral nutrition infusion RT EN not at goal rate AEB pt receiving enteral nutrition @ 20 mL/hr- RESOLVED/ GOAL VOLUME EN BEING RECEIVED New Dx: Altered nutrient-related lab values RT clinical condition AEB low K+ (3.1), need to change enteral nutrition to non-renal formula. Intervention: 1. Change enteral nutrition formula to Jevity 1.5 Monitoring, Evaluation and Goals: 1. Enteral nutrition; provide >80% goal volume x 24 hrs- MET/ IN PROGRESS 2. Weight; promote gradual weight loss towards healthy BMI- IN PROGRESS 3. Labs; improve: glucose, K+, BUN, AST, ALT, GFR 4. GI; promote regular GI function- IN PROGRESS ( 02/14) NEW GOALS (IN ADDITION TO ABOVE): 1. Monitor tolerance of new enteral formula Recommendations: 1. Once medically feasible, change enteral nutrition formula from Nepro to Jevity 1.5 due to improving renal labs and renal function (per MD request). -Start Jevity 1.5 @ 50 mL/hr x 22 hrs + Prostat BID. Increase by 10 mL q 4 hrs as tolerated to goal of 60 mL/hr + Prostat BID to provide: 2180 kcals/ 114 grams protein/ 1003 mL free H20 -Monitor for symptoms of intolerance with new enteral formula 2. Obtain accurate weight due to wide range of weights since admission. 3. Optimize the pt's insulin regimen noting hyperglycemia. Status: Pt is at moderate nutritional risk. RD will continue to follow. Respectfully, STEFANY DENNIS, RD, LD [facility] Nutrition Therapy DATE: 02/14/17 Patient: NADINE TAYLOR Physician: JOSEF Address: [address] Room/Bed: [address], Zip: [place] [address] Admit Date: 01/19/17 Date of : [birth year] Height: 6 1 Weight: 189 86 [facility] cc: client file
--- NOTE | ~2017-01-19 | CR72 ---
[facility] A Service of [facility] RADIOLOGY TEXT RESULTS PATIENT: NADINE TAYLOR LOCATION: [address] : [birth year] UNIT #: [id number] AGE: [address]: Wali Romano MD SEX: M ORDER DR: [id number] [address] [place], [place] [address] [id number] I MR#: [id number] Acc #: [id number] NAME: NADINE TAYLOR : 1970 SEX: M STUDY DATE/TIME: 02/03/2017 4:43 UNIT: [facility] ROOM: [facility] STUDY DESCRIPTION: CR Chest Single View Portable Attending Physician: Wali Romano M.D. Ordering Physician: Jacqueline Woody M.D. Primary Care Physician: Primary Care Physician No MEDICAL IMAGING REPORT This report is preliminary unless electronic signature is present EXAM Portable chest INDICATION Respiratory failure follow up. PROCEDURE Frontal view chest. COMPARISON 02/02/2017 FINDINGS Stable cardiomegaly. Persistent right basilar atelectasis. ET tube is stable. No pneumothorax. IMPRESSION Stable. Dictated by... Mukul Kaplan M.D. THIS IS AN ELECTRONICALLY VERIFIED REPORT Mukul Kaplan M.D. at 02/03/2017 10:27 PM EED/jose luis TD: 02/03/2017 05:01 JOB #: [id number] MEDICAL IMAGING REPORT [facility] A Service of [facility] RADIOLOGY TEXT RESULTS PATIENT: NADINE TAYLOR LOCATION: [facility]09-17 : [birth year] UNIT #: [id number] AGE: [address]: Wali Romano MD SEX: M ORDER DR: Page 1 of 1 COPY
--- NOTE | ~2017-01-19 | CR72 ---
[facility] A Service of [facility] & [facility] RADIOLOGY TEXT RESULTS PATIENT: NADINE TAYLOR LOCATION: [facility] : [birth year] UNIT #: [id number] AGE: [address]: Bret Veloz DO SEX: M ORDER DR: [id number] [facility] [address] [place], [place] [address] [id number] E MR#: [id number] Acc #: [id number] NAME: NADINE TAYLOR : 1970 SEX: M STUDY DATE/TIME: 01/19/2017 17:13 UNIT: [facility] ROOM: STUDY DESCRIPTION: CR Chest Single View Portable Attending Physician: Bret Veloz D.O. Ordering Physician: Bret Veloz D.O. Primary Care Physician: No Primary Care Physician MEDICAL IMAGING REPORT This report is preliminary unless electronic signature is present EXAM Single view chest. INDICATION Chest pain, chronic shortness of air, and cough for 3 days. FINDINGS Single portable AP view of the chest compared to 11/08/2008. The heart and mediastinal contours are unchanged. There is development of diffuse nodular airspace opacities throughout both lungs. No pleural effusion. IMPRESSION Development of diffuse nodular airspace opacities in both lungs. Although differential includes infectious processes and alveolar edema, I am concerned these are true nodules and could potentially represent diffuse metastatic disease. Consider further evaluation with CT scan of the chest. Dictated by... Hardy Mortensen M.D. THIS IS AN ELECTRONICALLY VERIFIED REPORT Hardy Mortensen M.D. at 01/19/2017 7:18 PM THEA/saroj TD: 01/19/2017 18:51 JOB #: [id number] MEDICAL IMAGING REPORT Page 1 of 1 COPY
--- NOTE | ~2017-01-19 | EE ---
Unit #: [id number] #: [id number] Patient: NADINE TAYLOR [id number] [address] [address] [id number] I MR#: [id number] NAME: NADINE TAYLOR : 1970 SEX: M STUDY DATE/TIME: 02/02/2017 UNIT: [facility] ROOM: [facility] STUDY DESCRIPTION: EEG Attending Physician: Wali Romano M.D. Referring Physician: Tereza Mathews A.P.R.N. Primary Care Physician: No Primary Care Physician NEURODIAGNOSTICS REPORT EXAM EEG REASON FOR THE STUDY Decreased level of consciousness. EEG DESCRIPTION This is an inpatient, digitally recorded multi-montage adult EEG with leads placed according to the International 10-20 system. Hyperventilation and photic stimulation was not done. This EEG shows 5 to 6 Hz or sometimes 7 Hz slowing with some spindles throughout with motion artifact and it seems like there may be a rhythmic type of slowing, almost every two seconds which could be a breathing artifact. Nothing suggesting seizure, nothing suggesting asymmetry, nothing suggesting interictal discharges. Reactivity was seen some. IMPRESSION Diffusely slow EEG indicative of encephalopathy. Some spindles were seen. Nothing suggesting seizure or status. An EEG like this does not rule out epilepsy. The status was not seen so clinical correlation is recommended. Dictated by... Anne Viera/mar TD: 02/03/2017 07:27 JOB #: [id number] NEURODIAGNOSTICS REPORT Page 1 of 1 X Subhash Coffman MD NEURODIAGNOSTICS REPORT
--- NOTE | ~2017-01-19 | CT71 ---
[facility] A Service of [facility] RADIOLOGY TEXT RESULTS PATIENT: NADINE TAYLOR LOCATION: [address] : [birth year] UNIT #: [id number] AGE: [address]: Wali Romano MD SEX: M ORDER DR: [id number] [facility]. [place], [place] [address] [id number] I MR#: [id number] Acc #: [id number] NAME: NADINE TAYLOR : 1970 SEX: M STUDY DATE/TIME: 01/26/2017 16:16 UNIT: [facility] ROOM: [facility] STUDY DESCRIPTION: CT Head Wo Contrast Attending Physician: Wali Romano M.D. Ordering Physician: Physician Non-Staff Primary Care Physician: No Primary Care Physician MEDICAL IMAGING REPORT This report is preliminary unless electronic signature is present EXAM CT head without contrast. INDICATIONS Increasing confusion since January 17, 2017. Patient also has a history of leukocytosis and fever. TECHNIQUE Axial CT images were obtained from the vertex of the skull through the skull base. This CT exam was performed with one or more of the following radiation dose reduction techniques: automatic exposure control, adjustment of mA and/or kV according to patient size, and iterative reconstruction. No intravenous contrast was administered. FINDINGS No acute intracranial hemorrhage is identified. Brain parenchyma is normal in attenuation with no focal areas of decreased attenuation seen. There is no midline shift or mass effect. When compared to the exam from January 19, 2017; patient has developed worsening opacification of the ethmoid, sphenoid and maxillary sinuses. It certainly could reflect sinusitis in the appropriate clinical setting. There is also partial opacification of the mastoid air cells, which is new when compared to the prior study. No focal soft tissue abnormalities are seen. IMPRESSION 1. No acute intracranial process identified. Specifically there is no evidence of acute hemorrhage, mass lesion or acute infarct. 2. Sinus inflammatory changes have progressed significantly when compared to the prior examination and patient has also developed bilateral partial mastoid air cell opacification. Dictated by... [facility] A Service of [facility] RADIOLOGY TEXT RESULTS PATIENT: NADINE TAYLOR LOCATION: [facility]10 : [birth year] UNIT #: [id number] AGE: [address]: Wali Romano MD SEX: M ORDER DR: Naima Kitchen M.D. THIS IS AN ELECTRONICALLY VERIFIED REPORT Naima Kitchen M.D. at 01/28/2017 3:21 PM AFF/pc TD: 01/28/2017 08:49 JOB #: [id number] MEDICAL IMAGING REPORT Page 1 of 1 COPY
--- NOTE | ~2017-01-19 | FU ---
[facility] Nutrition Therapy DATE: 01/24/17 Patient: NADINE TAYLOR Physician: JOSEF Address: [address] [place] [address] Room/Bed: [address], Zip: [place] [address] Admit Date: 01/19/17 Date of : [birth year] Height: 6 1 Weight: 273 124 NUTRITION MONITORING/FOLLOW-UP: Reason: PT SEEN FOR FOLLOW-UP/ENTERAL NUTRITION SUPPORT DX: WEAKNESS, MIRANDA, RESPIRATORY FAILURE, SEPSIS, ?OD Anthropometrics: 5'11", WT: 273# (124 KG), BMI: 38.1 -ADMIT WEIGHT: 260# Labs: GLU: 215, BUN: 30, CREAT: 2.4, CA+:7.9, ALB: 2.3, AST: 45, A1c: 7.2, TGs: 533, GFR: 30.8 Meds: LOVENOX, NACL, MAG SULFATE, VERSED, SYNTHROID (PO), LEVOTHROID (PO), FENTANYL, PROPOFOL (CURRENTLY OFF) I&O's: 42540/1191, 1 BM NOTED Skin: PEDAL/ANKLE TRACE EDEMA; ALE HANDS GENERAL EDEMA Estimated Nutrition Needs: 0119-1651 KCAL 118-141 G PRO (1.0-1.2 G PRO/KG ADMIT WT) INCREASED 2' PT ON HD Assessment: CHART REVIEWED AND EVENTS NOTED. PT SEEN FOR FOLLOW-UP. PT CONTINUES TO BE INTUBATED AND SEDATED AT TIME OF VISIT RECEIVING CRRT AND ENTERAL NUTRITION SUPPORT OF NEPRO @ 40 ML/HR X 22 HOURS (PT ON SYNTHROID-HOLD ONE HOUR BEFORE AND ONE HOUR AFTER ADMINISTRATION). PER RN AND CHART, PT TOLERATING ENTERAL NUTRITION, NOTING NO ISSUES AT THIS TIME. PER PUMP HISTORY, PT RECEIVING ~89% VOLUME PER PUMP HISTORY PAST 24 HOURS. NO FAMILY IN ROOM AT TIME OF VISIT. RD TO CONTINUE TO FOLLOW. Dx: INADEQUATE PROTEIN-ENERGY INTAKE R/T CURRENT DIAGNOSIS, VENT DEPENDENCE AEB NPO STATUS.-ACTIVE/RESOLVED. -OBESITY CLASS II AEB LIFESTYLE AEB BMI OF 36.1.-ACTIVE NEW DX: INADEQUATE PROTEIN-ENERGY INTAKE R/T CURRENT DIAGNOSIS, VENT DEPENDENCE AEB PT RECECEVING ALTERNATIVE NUTRITION SUPPORT. Intervention: 1. ENTERAL NUTRITION Monitoring, Evaluation and Goals: 1. ENTERAL NUTRITION; PROVIDE >80% GOAL VOLUME AT GOAL-MET 2. WEIGHTS; PROMOTE GRADUAL WEIGHT LOSS TOWARDS A HEALTHY BMI-IN PROGRESS 3. LABS; WNL-NOT MET/IN PROGRESS 4. GI; PROMOTE REGULAR GI FUNCTION [facility] Nutrition Therapy DATE: 01/24/17 Patient: NADINE TAYLOR Physician: JOSEF Address: [address] Room/Bed: [address], Zip: [place] [address] Admit Date: 01/19/17 Date of : [birth year] Height: 6 1 Weight: 273 124 MONITOR: -WEIGHTS -TF RATE/RESIDUALS -LABS -EXTUBATION? Recommendations: 1. RECOMMEND TO INCREASE CURRENT ENTERAL NUTRITION SUPPORT OF NEPRO TO GOAL RATE OF 55 ML/HR X 22 HOURS + SUGAR-FREE PROSTAT BID (PT ON SYNTHROID-HOLD ONE HOUR BEFORE AND ONE HOUR AFTER ADMINISTRATION) -PROVIDES 2378 KCAL, 128 G PRO, 883 ML FREE H20 ADD FREE H20 FLUSHES PER MD 2. ONCE PT EXTUBATED, ADVANCE DIET PER BRAZER PRODUCTION LINE + HEALTHY HEART DIET RD WILL F/U PER PROTOCOL PT IS MOD/SEVERELY COMPROMISED Respectfully, ALANNA KIRKPATRICK MS, RD, LD Food and Nutritional Services [facility] cc: client file
--- NOTE | ~2017-01-19 | CR72 ---
[facility] A Service of [facility] & [facility] RADIOLOGY TEXT RESULTS PATIENT: NADINE TAYLOR LOCATION: [address] : [birth year] UNIT #: [id number] AGE: [address]: Wali Romano MD SEX: M ORDER DR: [id number] [facility] [address] [facility]. [place], [place] [address] [id number] I MR#: [id number] Acc #: [id number] NAME: NADINE TAYLOR : 1970 SEX: M STUDY DATE/TIME: 01/27/2017 02:47 UNIT: [facility] ROOM: [facility] STUDY DESCRIPTION: CR Chest Single View Portable Attending Physician: Wali Romano M.D. Ordering Physician: Jacqueline Woody M.D. Primary Care Physician: No Primary Care Physician MEDICAL IMAGING REPORT This report is preliminary unless electronic signature is present EXAM Portable chest, 01/27 at 02:47. INDICATIONS Respiratory failure. ET tube placement. FINDINGS AP portable chest is compared with 01/26/2017. ET tube and bilateral IJ lines remain in good position. Heart size is normal. There is mild elevation of right hemidiaphragm. Interstitial changes in the lower lungs are stable. No pneumothorax. Dictated by... Geo Chaudhry Jr., M.D. THIS IS AN ELECTRONICALLY VERIFIED REPORT Geo Chaudhry Jr., M.D. at 01/27/2017 9:26 PM CHANTELL/sanaz TD: 01/27/2017 06:59 JOB #: [id number] MEDICAL IMAGING REPORT Page 1 of 1 COPY
--- NOTE | ~2017-01-19 | CR72 ---
[facility] A Service of [facility] & [facility] RADIOLOGY TEXT RESULTS PATIENT: NADINE TAYLOR LOCATION: [address] : [birth year] UNIT #: [id number] AGE: [address]: Brady Hernandez MD SEX: M ORDER DR: [id number] [facility] [address] [facility]. [place], [place] [address] [id number] I MR#: [id number] Acc #: [id number] NAME: NADINE TAYLOR : 1970 SEX: M STUDY DATE/TIME: 02/08/2017 5:36 UNIT: [facility] ROOM: [facility] STUDY DESCRIPTION: CR Chest Single View Portable Attending Physician: Brady Hernandez M.D. Ordering Physician: Jacqueline Woody M.D. Primary Care Physician: Primary Care Physician No MEDICAL IMAGING REPORT This report is preliminary unless electronic signature is present EXAM Portable chest HISTORY Respiratory failure, sepsis, onset 20 days ago, acute kidney injury, hemodialysis patient with history of drug abuse. COMPARISON 02/07/2017 FINDINGS Tubes and lines remain in satisfactory position, unchanged. No significant change in cardiopulmonary status. Continued right basilar volume loss, right perihilar atelectasis. No dense airspace disease or consolidation, no sizable effusions. No pneumothorax. Dictated by... Kemar Frank M.D. THIS IS AN ELECTRONICALLY VERIFIED REPORT Kemar Frank M.D. at 02/09/2017 12:28 PM MICHAEL/daniella TD: 02/08/2017 21:25 JOB #: [id number] MEDICAL IMAGING REPORT Page 1 of 1 COPY
--- NOTE | ~2017-01-19 | CT71 ---
[facility] A Service of [facility] RADIOLOGY TEXT RESULTS PATIENT: NADINE TAYLOR [facility] [birth year] UNIT #: [id number] AGE: [address]: TATIANNA GRANT MD SEX: M ORDER DR: [id number] [facility] [address] [facility]. [place], [place] [address] [id number] I MR#: [id number] Acc #: [id number] NAME: NADINE TAYLOR : 1970 SEX: M STUDY DATE/TIME: 01/19/2017 23:05 UNIT: [facility] ROOM: [facility] STUDY DESCRIPTION: CT Head Wo Contrast Attending Physician: Tatianna Grant M.D. Ordering Physician: Bret Veloz D.O. Primary Care Physician: Primary Care Physician No MEDICAL IMAGING REPORT This report is preliminary unless electronic signature is present EXAM CT scan of the head without contrast INDICATION Weakness, shortness of air, decreased level of consciousness today. Patient on a ventilator. TECHNIQUE This CT exam was performed with one or more of the following radiation dose reduction techniques: automatic exposure control, adjustment of mA and/or kV according to patient size, and iterative reconstruction. FINDINGS Axial noncontrast images were obtained from the skull base to the vertex. Ventricular size and configuration are normal. There is no evidence of acute infarct or hemorrhage. There are no extra-axial fluid collections. No mass lesion or mass effect is seen. There are no skull fractures. IMPRESSION Normal noncontrast head CT. Dictated by... Sohan Montoya M.D. THIS IS AN ELECTRONICALLY VERIFIED REPORT Sohan Montoya M.D. at 01/20/2017 5:56 AM YFN/jose luis TD: 01/19/2017 23:45 JOB #: [id number] [facility] A Service of [facility] RADIOLOGY TEXT RESULTS PATIENT: NADINE TAYLOR [facility] : [birth year] UNIT #: [id number] AGE: [address]: TATIANNA GRANT MD SEX: M ORDER DR: MEDICAL IMAGING REPORT Page 1 of 1 COPY
--- NOTE | ~2017-01-19 | CR72 ---
[facility] A Service of [facility] & [facility] RADIOLOGY TEXT RESULTS PATIENT: NADINE TAYLOR LOCATION: [address] : [birth year] UNIT #: [id number] AGE: [address]: Brady Hernandez MD SEX: M ORDER DR: [id number] [facility] [address] [place], [place] [address] [id number] I MR#: [id number] Acc #: [id number] NAME: NADINE TAYLOR : 1970 SEX: M STUDY DATE/TIME: 02/13/2017 4:46 UNIT: [facility] ROOM: [facility] STUDY DESCRIPTION: CR Chest Single View Portable Attending Physician: Brady Hernandez M.D. Ordering Physician: Maeagn Fu A.P.R.N. Primary Care Physician: Primary Care Physician No MEDICAL IMAGING REPORT This report is preliminary unless electronic signature is present EXAM Portable chest, 02/13/2017 INDICATION Respiratory failure. COMPARISON 02/12/2017 FINDINGS This portable view of the chest shows the lungs are clear. The bilateral central venous catheter and tracheostomy tube are in good position. Dictated by... Sohan Montoya M.D. THIS IS AN ELECTRONICALLY VERIFIED REPORT Sohan Montoya M.D. at 02/14/2017 1:37 PM YFN/jose luis TD: 02/14/2017 05:26 JOB #: [id number] MEDICAL IMAGING REPORT Page 1 of 1 COPY
--- NOTE | ~2017-01-19 | US77 ---
[facility] A Service of [facility] & [facility] RADIOLOGY TEXT RESULTS PATIENT: NADINE TAYLOR LOCATION: [facility]IC[facility]2-10 : 66 UNIT #: [id number] AGE: [address]: Wali Romano MD SEX: M ORDER DR: [id number] [id number] [facility]. [place], [place] [address] [id number] I MR#: [id number] Acc #: [id number] NAME: NADINE TAYLOR : 1970 SEX: M STUDY DATE/TIME: 01/22/2017 10:17 UNIT: [facility] ROOM: [facility] STUDY DESCRIPTION: US Kidney Bilateral Complete Attending Physician: Wali Romano M.D. Ordering Physician: Cristofer Rodriguez Jr., M.D. Primary Care Physician: No Primary Care Physician MEDICAL IMAGING REPORT This report is preliminary unless electronic signature is present EXAM Bilateral complete renal ultrasound. COMPARISON CT chest dated January 19, 2017, and renal ultrasound dated November 09, 2008. INDICATION 46-year-old male with acute renal insufficiency. FINDINGS Right kidney is isoechoic to the liver with normal cortical thickness and measures up to 12.3 cm in length. The hepatic contour appears blunted and slightly nodular suggestive of cirrhosis. There is no right hydronephrosis. Color flow is present in the right kidney. No definite right renal lesion or shadowing calculus. Bladder is not well seen due to indwelling Abdullahi catheter and collapse of the urinary bladder. The left kidney measures 11.7 cm in length with normal cortical thickness. There is no left hydronephrosis. Color flow is present in the left kidney. No definite left renal lesion. IMPRESSION 1. Normal sonographic evaluation of the kidneys. 2. Findings suggestive of cirrhosis. 3. Nondiagnostic evaluation of the urinary bladder due to indwelling Abdullahi catheter and bladder collapse. Dictated by... Hussain Goetz M.D. THIS IS AN ELECTRONICALLY VERIFIED REPORT Hussain Goetz M.D. at 01/27/2017 7:[address] [facility] A Service of [facility] & [facility] RADIOLOGY TEXT RESULTS PATIENT: NADINE TAYLOR LOCATION: [facility]2-10 : 66 UNIT #: [id number] AGE: [address]: Wali Romano MD SEX: M ORDER DR: Mercedes TD: 01/22/2017 16:40 JOB #: [id number] MEDICAL IMAGING REPORT Page 1 of 1 COPY
--- NOTE | ~2017-01-19 | CR72 ---
[facility] A Service of [facility] & [facility] RADIOLOGY TEXT RESULTS PATIENT: NADINE TAYLOR LOCATION: [address] : [birth year] UNIT #: [id number] AGE: [address]: Brady Hernandez MD SEX: M ORDER DR: [id number] [facility] [address] [facility]. [place], [place] [address] [id number] I MR#: [id number] Acc #: [id number] NAME: NADINE TAYLOR : 1970 SEX: M STUDY DATE/TIME: 02/06/2017 22:43 UNIT: [facility] ROOM: [facility] STUDY DESCRIPTION: CR Chest Single View Portable Attending Physician: Brady Hernandez M.D. Ordering Physician: Brennen Hill M.D. Primary Care Physician: No Primary Care Physician MEDICAL IMAGING REPORT This report is preliminary unless electronic signature is present EXAM Portable chest, 02/06/2017. HISTORY Post invasive procedure central line placement today. Respiratory failure, intubated, follow up infiltrates. Chest congestion. FINDINGS The cardiac and mediastinal structures are stable compared with 02/06/2017 at 1750. Left subclavian approach central line has been inserted with the tip in the superior vena cava. There is no pneumothorax. There has been no other change in the position of the life support equipment. Nasogastric tube remains in place with tip below the diaphragm not visualized. Poor inspiratory result and elevation of the right hemidiaphragm with atelectasis at the right lung base. Dictated by... Charli Altamirano M.D. THIS IS AN ELECTRONICALLY VERIFIED REPORT Charli Altamirano M.D. at 02/07/2017 2:13 PM LADONNA/norberto TD: 02/07/2017 10:29 JOB #: [id number] MEDICAL IMAGING REPORT Page 1 of 1 COPY
--- NOTE | ~2017-01-19 | HP ---
Unit #: [id number] #: [id number] Patient: NADINE TAYLOR [id number] [address] [address] [id number] I MR#: [id number] NAME: NADINE TAYLOR ROOM: 61520 Age: 46 Sex: M Admission Date: 01/19/2017 : 1970 Attending Physician: Tatianna Grant M.D. Primary Care Physician: Tatianna Grant M.D. HISTORY AND PHYSICAL CHIEF COMPLAINT (1) . HISTORY OF PRESENT ILLNESS The patient is a 46-year-old male with a history of a hypertension, and hypothyroidism and drug abuse/heroin abuse, brought to the emergency room complaining of having trouble walking and feeling weak. The patient became disoriented and was in respiratory distress. The patient received the Narcan in the emergency room, became very agitated and is status post intubation with the sedation. The patient's history is obtained by speaking to the ER physician at the bedside and the RN at the bedside. The patient is unable to provide any history and there are no family members available at the bedside. The patient has a history of IV heroin abuse per ER physician. PAST MEDICAL HISTORY History of hypertension, hypothyroidism, hyperlipidemia. PAST SURGICAL HISTORY Knee surgery. HOME MEDICATION He is on thyroid pills, BP pills, cholesterol and blood thinner. ALLERGIES Unknown. SOCIAL HISTORY Unknown. FAMILY HISTORY Unknown. REVIEW OF SYMPTOMS Unable to obtain. PHYSICAL EXAMINATION GENERAL APPEARANCE: On examination the patient is lying on a bed status post intubation and sedation. VITAL SIGNS: Temperature 98, pulse 99, respiratory rate 20, blood pressure 110/60, sating 98% on room air. HEENT: Head atraumatic/normocephalic. Pupils sluggish to reaction. Status post orotracheal intubation. Dry mucous membranes. NECK: Supple. Unit #: [id number] #: [id number] Patient: NADINE TAYLOR LUNGS: Coarse breath sounds and the crackles bilaterally and rhonchi. HEART: Regular rate and rhythm. ABDOMEN: Soft, positive bowel sounds. EXTREMITIES: Positive for track gutierrez and no cyanosis, no clubbing. NEUROLOGIC: Status post intubation and sedation, unable to follow the commands. DIAGNOSTIC STUDIES IMAGING: Chest x-ray shows development of diffuse nodular airspace opacities in both lungs. Although differential includes infectious processes and alveolar edema, I am concerned these are true nodules and could potentially represent diffuse metastatic disease. Consider further evaluation with a CT scan of the chest. LABORATORY DATA: BNP is 31. BMP: Sodium is 131, potassium is 3.3, chloride 95, bicarb 26, glucose 224, BUN 36, creatinine 2.0, calcium 8.1, AST 77, ALT 43, alkaline phosphatase 89, INR is 1, lactic acid 1.8, WBC 8.1, hemoglobin 10.1, hematocrit 31.8, platelet is 185. ASSESSMENT 1. Acute respiratory failure. 2. Sepsis. 3. Diffuse bilateral pneumonia. 4. Drug overdose. 5. Acute kidney injury. PLAN Plan to admit the patient to inpatient in the ICU. Patient will have a Pulmonary/Critical Care consult. Continue with the sepsis protocol. Continue with the IV antibiotics with the vancomycin and Maxipime and check the ABG, urine toxicology and replace the potassium per protocol and obtain the further history once the family is available and further recommendations will follow. Dictated by Anne Eanmorado/zaid TD: 01/19/2017 21:38 JOB #: [id number] HISTORY AND PHYSICAL Page 1 of 1 X TATIANNA GRANT MD X HISTORY AND PHYSICAL
--- NOTE | ~2017-01-19 | CO ---
Unit #: [id number] #: [id number] Patient: NADINE TAYLOR [id number] [facility]. [place], [place] [address] [id number] I MR#: [id number] NAME: NADINE TAYLOR ROOM: [facility] Age: 46 Sex: M Admission Date: 01/19/2017 : 1970 Attending Physician: Wali Romano M.D. Primary Care Physician: Primary Care Physician No Consultation Date: 01/20/2017 CONSULTATION REPORT REASON FOR CONSULTATION Abnormal 2D echocardiogram with left ventricular ejection fraction of 15% to 20%. HISTORY OF PRESENT ILLNESS This is a 46-year-old white male, new to our group with a past medical history of hypertension, hypothyroidism, and polysubstance abuse with IV drug abuse/heroin. There are no reports of hyperlipidemia, diabetes mellitus, myocardial infarction, cerebrovascular accident. It is unclear if the patient follows with a nursing faculty or if any previous stress test or cardiac catheterizations have been completed. He presented to the emergency department with weakness and difficulty walking. He was responsive and talking, but nursing staff states that he then became altered and difficult to arouse. There was concern that he had taken something and had overdosed. Initial temperature was 98 with a pulse of 99. Blood pressure was 110/60 with O2 saturation 98% on room air. He was given a dose of Narcan and started on normal saline. Imaging was obtained and revealed development of diffuse airspace opacities in both lungs with infectious process versus edema. He was sedated and subsequently intubated. He was transferred to the intensive care unit for further management. A 2D echocardiogram was obtained and revealed a left ventricular ejection fraction of 15% to 20%. Cardiology was consulted for further management. The patient is currently on a ventilator and cannot provide a history. He does have a sister and mother, which I have not been able to reach. There is a friend at the bedside. He states that the patient has not been feeling well for at least a week. He saw him 2 days ago and he was drenched in sweat and had ice pack on his forehead. His friend does state that he continues to use drugs. Initial toxicology was positive for methadone, amphetamines, and opioids. PAST MEDICAL HISTORY 1. Hypertension. 2. Hyperlipidemia. 3. Hypothyroidism. 4. Polysubstance abuse with IV drug abuse/heroin. 5. Reported nonsmoker. PAST SURGICAL HISTORY Knee surgery. HOME MEDICATIONS Levothyroxine 175 mcg p.o. daily, aspirin 81 mg p.o. daily, Lipitor 80 mg p.o. at bedtime, Maxzide 37.5/25 mg one tablet p.o. daily. Unit #: [id number] #: [id number] Patient: NADINE TAYLOR ALLERGIES No known drug allergies. SOCIAL HISTORY Difficult to obtain per patient. According to documentation and staff, the patient has a history of polysubstance abuse and IV heroin. Urine toxicology is positive as noted above. The patient is reportedly a nonsmoker. There are no reports of alcohol use. FAMILY HISTORY Difficult to obtain per the patient. REVIEW OF SYSTEMS Difficult to obtain per the patient. PHYSICAL EXAMINATION VITAL SIGNS: Temperature 99.6, pulse is 90, blood pressure 106/63. CONSTITUTIONAL: This is a 46-year-old white male, who is ill appearing, on the ventilator. SKIN: Warm and dry. NECK: Supple. No jugular vein distention. No hepatojugular reflux. Normal carotid upstrokes. No carotid bruits auscultated. HEART: S1 and S2. Regular rate and rhythm. No murmurs, rubs, or gallops. LUNGS: Bilateral breath sounds have rales and rhonchi. ABDOMEN: Soft, nontender, and nondistended. Positive bowel sounds auscultated x4 quadrants. No ascites noted. EXTREMITIES: Bilateral lower extremities have trace pretibial pitting edema. DP and PT pulses are 2+. Capillary refill is less than 2 seconds. DIAGNOSTIC STUDIES LABORATORY RESULTS: White blood cell count 5.3, hemoglobin 10.2, hematocrit 31.3, and platelets 185. Sodium 134, potassium 3.9, chloride 98, CO2 of 29, BUN 34, creatinine 1.5, glucose 129, calcium 7.9, albumin 2.9, protein 7.4, AST 77, ALT 43, alkaline phos 89. BNP 31. Lactic acid 1.8 and 0.8. INR 1.0. Point of care troponin 0.05 and 0.05. Urine toxicology positive for methadone, amphetamines, and opiates. Blood cultures on 01/19/2017, pending. Sputum culture with moderate gram-positive cocci in pairs, chains, and clusters. Urinalysis, negative. Urine culture preliminary, negative. CARDIOVASCULAR STUDIES: EKG reveals normal sinus rhythm with a ventricular rate of 92 beats per minute. Nonspecific ST-T wave changes noted. QTc 484 msec. IMAGING STUDIES: Initial chest x-ray on 01/19/2017 revealed diffuse opacities in both lungs. Differential of infectious process versus edema. CT of the head without contrast on 01/19/2017 revealed no acute findings. CT of the chest without contrast on 01/19/2017 revealed extremely dense bilateral infiltrates throughout most of the lungs with air bronchograms Unit #: [id number] #: [id number] Patient: NADINE TAYLOR visible bilaterally. Bronchi and trachea patent. Endotracheal tube in good position. Findings suggest pneumonia. IMPRESSION 1. Acute hypoxic respiratory failure. 2. Possible ARDS. 3. Bilateral pneumonia. 4. Cardiomyopathy with a left ventricular ejection fraction of 15% to 20%. 5. History of hypertension. 6. History of hyperlipidemia. 7. Hypothyroidism. 8. Anemia. 9. Acute kidney injury. 10. Mild hyponatremia. 11. Elevated LFTs. 12. Polysubstance abuse with IV drug abuse. PLAN 1. The patient presented to hospital with complaints of weakness. He was admitted for acute respiratory failure and pneumonia. 2. Cardiology was consulted due to an abnormal 2D echocardiogram with an ejection fraction of 15% to 20%. 3. The patient will be started on dobutamine for contractility and renal perfusion. 4. The patient's case was discussed with Dr. Woody and has been decided that diuretics will be held for now. 5. Initial cardiac enzymes were negative. We will trend enzymes and EKG. 6. TSH and fasting lipid profile will be obtained. 7. Attempts to reach the patient's sister and mother will be repeated. 8. The patient's prognosis is guarded. Dictated by... Marleen Webber APRN TR/cezar TD: 01/22/2017 23:40 JOB #: [id number] CONSULTATION REPORT Page 1 of 1 X X CONSULTATION REPORT
--- NOTE | ~2017-01-19 | CR72 ---
[facility] A Service of [facility] & [facility] RADIOLOGY TEXT RESULTS PATIENT: NADINE TAYLOR LOCATION: [address] : [birth year] UNIT #: [id number] AGE: [address]: Wali Romano MD SEX: M ORDER DR: [id number] [facility] [address] [facility]. [place], [place] [address] [id number] I MR#: [id number] Acc #: [id number] NAME: NADINE TAYLOR : 1970 SEX: M STUDY DATE/TIME: 01/25/2017 12:38 UNIT: [facility] ROOM: [facility] STUDY DESCRIPTION: CR Chest Single View Portable Attending Physician: Wali Romano M.D. Ordering Physician: Physician Non-Staff Primary Care Physician: No Primary Care Physician MEDICAL IMAGING REPORT This report is preliminary unless electronic signature is present EXAM Portable chest. HISTORY Central line placement. COMPARISON 01/25/2017. FINDINGS Portable view chest straits interval placement of left neck approach central line distal tip lower SVC. The right neck approach Shiley catheter remains in place, as well as a flexible feeding tube coursing through the mediastinum and below the GE junction. The endotracheal tube presents in a high position about 7.7 inches above cyn. Slight advancement of about 2 cm may be recommended for more optimal positioning. Mild diffuse interstitial alveolar prominence within both lungs could represent a component of interstitial alveolar edema. No dense consolidation. No sizeable effusions. No pneumothorax. Dictated by... Kemar Frank M.D. THIS IS AN ELECTRONICALLY VERIFIED REPORT Kemar Frank M.D. at 01/25/2017 8:26 PM MICHAEL/leighann TD: 01/25/2017 16:42 JOB #: [id number] MEDICAL IMAGING REPORT Page 1 of 1 COPY
--- NOTE | ~2017-01-19 | CR72 ---
[facility] A Service of [facility] RADIOLOGY TEXT RESULTS PATIENT: NADINE TAYLOR LOCATION: CICCU2 CICCU2-10 : [birth year] UNIT #: [id number] AGE: [address]: Wali Romano MD SEX: M ORDER DR: [id number] [facility] [address] [facility]. [place], [place] [address] [id number] I MR#: [id number] Acc #: [id number] NAME: NADINE TAYLOR : 1970 SEX: M STUDY DATE/TIME: 01/22/2017 5:49 UNIT: [facility] ROOM: [facility] STUDY DESCRIPTION: CR Chest Single View Portable Attending Physician: Wali Romano M.D. Ordering Physician: Jacqueline Woody M.D. MEDICAL IMAGING REPORT This report is preliminary unless electronic signature is present EXAM Portable AP view of the chest COMPARISON 01/21/2017 and 01/20/2017. INDICATIONS 46-year-old male with dyspnea and respiratory failure requiring mechanical ventilation for 4 days. History of hypertension. FINDINGS/IMPRESSION Endotracheal tube appears to have retracted slightly and somewhat high-riding, located approximately 7.4 cm above the cyn. Feeding tube not traced below level of the left upper quadrant of the abdomen where it passes off the bottom aspect of the image. No evidence of pneumothorax or significant pleural effusion. Dense interstitial and alveolar opacities appear grossly stable throughout the lungs with perhaps mild improvement in the right lung base. Findings would seem to favor pneumonia or ARDS. Cardiomediastinal silhouette is within normal limits. Dictated by... Hussain Goetz M.D. THIS IS AN ELECTRONICALLY VERIFIED REPORT Hussain Goetz M.D. at 01/26/2017 12:18 PM BLM/pcl TD: 01/22/2017 10:08 [facility] A Service [facility] RADIOLOGY TEXT RESULTS PATIENT: NADINE TAYLOR LOCATION: CICCU2 CICCU2-10 : [birth year] UNIT #: [id number] AGE: [address]: Wali Romano MD SEX: M ORDER DR: JOB #: [id number] MEDICAL IMAGING REPORT Page 1 of 1 COPY
--- NOTE | ~2017-01-19 | FU ---
[facility] Nutrition Therapy DATE: 02/04/17 Patient: NADINE TAYLOR Physician: [id number] Address: [address] Room/Bed: [address], Zip: [place] [address] Admit Date: 01/19/17 Date of : [birth year] Height: 6 1 Weight: 209 95 NUTRITION MONITORING/FOLLOW-UP: Reason: PT SEEN FOR [id number]/ENTERAL NUTRITION SUPPORT DX: WEAKNESS, MIRANDA, RESPIRATORY FAILURE, SEPSIS, ?OD Anthropometrics: 5'11", WT: 221# (100 KG), BMI: 30.8 -WEIGHTS HAVE RANGED 224-260# SINCE ADMIT Labs: GLU: 240, BUN: 119, CREAT: 4.0, CA+:8.0, ALB: 3.0, AST: 49, PHOS: 5.1 (01/29/17), GFR: 16.6 Meds: NACL, LEVOTHROID, SYNTHROID, PROTONIX, FENTANYL, VERSED I&O's: 7687/2719 Skin: NO KNOWN SKIN ISSUES Estimated Nutrition Needs: [id number] KCAL 118-141 G PRO Assessment: CHART REVIEWED AND EVENTS NOTED. PT SEEN FOR ENTERAL NUTRITION SUPPORT FOLLOW-UP. PT CONTINUES TO BE INTUBATED AND SEDATED TIME OF VISIT. PT RECEIVING ENTERAL NUTRITION SUPPORT OF NEPRO @ 55 ML/HR + SUGAR-FREE PROSTAT BID X 22 HOURS (PT ON SYNTHROID-HOLD ONE HOUR BEFORE AND ONE HOUR AFTER ADMINISTRATION). PER RN AND CHART, PT TOLERATING EN, NOTING NO ISSUES AT THIS TIME. PER PUMP HISTORY, PT RECEIVING ~98% TOTAL VOLUME PAST 24 HOURS. PT RECEIVING HD AT TIME OF VISIT. NO FAMILY IN ROOM AT THIS TIME. RD TO CONTINUE TO FOLLOW. Dx: INADEQUATE PROTEIN-ENERGY INTAKE R/T CURRENT DIAGNOSIS, VENT DEPENDENCE AEB ALTERED NUTRITION SUPPORT IN PLACE.-ACTIVE Intervention: 1. ENTERAL NUTRITION SUPPORT Monitoring, Evaluation and Goals: 1. ENTERAL NUTRITION; PROVIDE >80% GOAL VOLUME AT GOAL-MET 2. WEIGHTS; PROMOTE GRADUAL WEIGHT LOSS TOWARDS HEALTHY BMI-IN PROGRESS 3. LABS; WNL-NOT MET 4. GI; PROMOTE REGULAR GI FUNCTION-IN PROGRESS MONITOR: -TF RATE/RESIDUALS -WEIGHTS [facility] Nutrition Therapy DATE: 02/04/17 Patient: NADINE TAYLOR Physician: JOSEF Address: [facility] [address] Room/Bed: [address], Zip: [place] [address] Admit Date: 01/19/17 Date of : [birth year] Height: 6 1 Weight: 209 95 -LABS -EXTUBATION Recommendations: 1. PLEASE OBTAIN UPDATED PHOS LEVEL TO DETERMINE RENAL STATUS. ALSO OPTIMIZE BLOOD SUGAR CONTROL REGIMEN-PT'S BLOOD SUGARS ELEVATED 2. CONTINUE CURRENT ENTERAL NUTRITION SUPPORT OF NEPRO @ 55 ML/HR + SUGAR-FREE PROSTAT BID X 22 HOURS (PT ON SYNTHROID-HOLD ONE HOUR BEFORE AND ONE HOUR AFTER ADMINISTRATION) -PROVIDES 2378 KCAL, 128 G PRO, 920 ML FREE H20 CONTINUE FREE H20 FLUSHES PER MD 3. IF PT'S ELECTROLYTES CONTINUE TO BE WITHIN NORMAL LIMITS, RECOMMEND TO CHANGE CURRENT ENTERAL NUTRITION SUPPORT TO JEVITY 1.5 @ 20 ML/HR, ADVANCE 10 ML q 4 HOURS TO GOAL RATE OF 65 ML/HR + SUGAR-FREE PROSTAT BID X 22 HOURS -PROVIDES 2345 KCAL, 121 G PRO, 1087 ML FREE H20 ADD FREE H20 FLUSHES PER MD 4. ONCE PT EXTUBATED, ADVANCE DIET PER PHARMACY MESSENGER EVALUATION + HEALTHY HEART 2' PMH RD WILL F/U PER PROTOCOL PT IS SEVERELY COMPROMISED Respectfully, ALANNA KIRKPATRICK MS, RD, LD [facility] cc: client file
--- NOTE | ~2017-01-19 | TOC ---
Unit #: [id number] #: [id number] Patient: NADINE TAYLOR [id number] [address] [address] [id number] I MR#: [id number] NAME: NADINE TAYLOR ROOM: CICCU3 Age: 47 Sex: M Admission Date: 01/19/2017 : 1970 Attending Physician: Brady Hernandez M.D. Primary Care Physician: No Primary Care Physician TRANSFER OF CARE SUMMARY CURRENT CLINICAL DIAGNOSES 1. Chronic respiratory failure. Patient status post tracheostomy. 2. Patient status post percutaneous endoscopic gastrostomy tube placement. 3. Pneumonia on admission. 4. Cardiomyopathy with estimated ejection fraction 10%. 5. Acute kidney injury initially requiring hemodialysis, now showing recovery. 6. Nonsustained ventricular tachycardia. 7. Intravenous drug abuse. 8. Sepsis, present on admission. 9. Acute respiratory distress syndrome. 10. Leukocytosis. 11. Diarrhea. CURRENT CLINICAL CONSULTANTS 1. Dr. Hill, pulmonary. 2. Dr. Stewart, infectious disease. 3. Dr. Diaz, cardiology. 4. Dr. Celis, nephrology. HISTORY OF PRESENT ILLNESS/HOSPITAL COURSE A 46-year-old male who was admitted secondary to acute respiratory failure. Please see H and P for complete details. The patient was subsequently intubated. Through hospital course ventilator wean was attempted; unfortunately failed. The patient ultimately underwent tracheostomy, as well as PEG tube placement. From a neurological standpoint, consultation had been placed to Dr. Coffman secondary to the patient's decreased responsiveness. He does have some level of anoxic encephalopathy, not complete brain . He is unable to follow commands. He opens eyes but has no purposeful movements. Family members feel as though the patient is showing improvement; however, he likely has significant anoxic damage secondary to prior IV drug abuse, as well as septic shock. Family members wish to continue forth with ongoing care. The patient, in regard to this acute renal failure, had undergone hemodialysis, as well as CRRT, by nephrology service. At the present time, he is showing signs of recovery, and dialysis plans are being placed on hold. Dr. Diaz was consulted secondary to ejection fraction of approximately Unit #: [id number] #: [id number] Patient: NADINE TAYLOR 10%, cardiomyopathy likely secondary to prior history of IV drug abuse. He initially was placed on pressor support, and currently he is not requiring pressors. He does have a prior history of IV drug abuse, heroin long-term, as well as tobacco and alcohol. At the present time he has had some low-grade fevers, but ID service has recommended no further antibiotics, and they are recommending observation off antibiotics at the present time. At this point in time we are awaiting long-term acute care facility for ongoing care. Overall, the patient's prognosis is very poor. Family members are well aware, but they continue to wish for ongoing management and/or treatment. Dictated by... Anne Og/madison TD: 02/15/2017 10:39 JOB #: [id number] TRANSFER OF CARE SUMMARY Page 1 of 1 X Brady Hernandez MD X TRANSFER OF CARE SUMMARY
--- NOTE | ~2017-01-19 | CR72 ---
[facility] A Service of [facility] & [facility] RADIOLOGY TEXT RESULTS PATIENT: NADINE TAYLOR LOCATION: [address] : [birth year] UNIT #: [id number] AGE: [address]: Wali Romano MD SEX: M ORDER DR: [id number] [facility] [address] [place], [place] [address] [id number] I MR#: [id number] Acc #: [id number] NAME: NADINE TAYLOR : 1970 SEX: M STUDY DATE/TIME: 01/31/2017 2:36 UNIT: [facility] ROOM: [facility] STUDY DESCRIPTION: CR Chest Single View Portable Attending Physician: Wali Romano M.D. Ordering Physician: Jacqueline Woody M.D. Primary Care Physician: Primary Care Physician No MEDICAL IMAGING REPORT This report is preliminary unless electronic signature is present EXAM Portable chest INDICATION Respiratory distress. PROCEDURE Frontal view chest. COMPARISON 01/30/2017 FINDINGS Stable heart size. Support monitoring device is unchanged. No new dense consolidation, pleural fluid or pneumothorax. IMPRESSION Stable. Dictated by... Mukul Kaplan M.D. THIS IS AN ELECTRONICALLY VERIFIED REPORT Mukul Kaplan M.D. at 01/31/2017 10:00 PM AUTUMN/jose luis TD: 01/31/2017 03:15 JOB #: [id number] MEDICAL IMAGING REPORT Page 1 of 1 COPY
--- NOTE | ~2017-01-19 | CR72 ---
[facility] A Service of [facility] & [facility] RADIOLOGY TEXT RESULTS PATIENT: NADINE TAYLOR LOCATION: [address] : [birth year] UNIT #: [id number] AGE: [address]: Wali Romano MD SEX: M ORDER DR: [id number] [facility] [address] [facility]. [place], [place] [address] [id number] I MR#: [id number] Acc #: [id number] NAME: NADINE TAYLOR : 1970 SEX: M STUDY DATE/TIME: 01/25/2017 5:55 UNIT: [facility] ROOM: [facility] STUDY DESCRIPTION: CR Chest Single View Portable Attending Physician: Wali Romano M.D. Ordering Physician: Jacqueline Woody M.D. Primary Care Physician: Primary Care Physician No MEDICAL IMAGING REPORT This report is preliminary unless electronic signature is present EXAM Portable chest 1-view, 01/25/2017 COMPARISON 01/24/2017 HISTORY Respiratory failure for 5 days. FINDINGS Coarse bilateral left slightly greater than right infiltrates are redemonstrated, not convincingly changed since the study of 01/24. There is no new infiltrate or pneumothorax or apparent effusion. ET tube remains tip 4.0 cm above cyn and feeding tube remains as does a right IJ dialysis catheter, tip at the superior cavoatrial junction. Dictated by... Adarsh Garcia M.D. THIS IS AN ELECTRONICALLY VERIFIED REPORT Adarsh Garcia M.D. at 01/25/2017 3:57 PM HIRAM/cathleen TD: 01/25/2017 12:52 JOB #: [id number] MEDICAL IMAGING REPORT Page 1 of 1 COPY
--- NOTE | ~2017-01-19 | CR72 ---
[facility] A Service of [facility] & [facility] RADIOLOGY TEXT RESULTS PATIENT: NADINE TAYLOR LOCATION: [address] : [birth year] UNIT #: [id number] AGE: [address]: Wali Romano MD SEX: M ORDER DR: [id number] [facility] [address] [place], [place] [address] [id number] I MR#: [id number] Acc #: [id number] NAME: NADINE TAYLOR : 1970 SEX: M STUDY DATE/TIME: 01/30/2017 4:33 UNIT: [facility] ROOM: [facility] STUDY DESCRIPTION: CR Chest Single View Portable Attending Physician: Wali Romano M.D. Ordering Physician: Jacqueline Woody M.D. Primary Care Physician: Primary Care Physician No MEDICAL IMAGING REPORT This report is preliminary unless electronic signature is present EXAM Portable chest INDICATION Respiratory failure. Followup. PROCEDURE Frontal view chest COMPARISON 01/29/2017 FINDINGS Heart size unchanged. ET tube stable. No new dense consolidation, pleural fluid or pneumothorax. IMPRESSION Stable. Dictated by... Mukul Kaplan M.D. THIS IS AN ELECTRONICALLY VERIFIED REPORT Mukul Kaplan M.D. at 01/30/2017 10:24 PM Negrita TD: 01/30/2017 09:04 JOB #: [id number] MEDICAL IMAGING REPORT Page 1 of 1 COPY
--- NOTE | ~2017-01-19 | A ---
[facility] Nutrition Therapy DATE: 01/20/17 Patient: NADINE TAYLOR Physician: JOSEF Address: [address] Room/Bed: [address], Zip: [place] [address] Admit Date: 01/19/17 Date of : [birth year] Height: 6 1 Weight: 257 117 NUTRITIONAL ASSESSMENT: REASON: NPO IN ICU ASSESSMENT PT IS 46 Y.O. MALE ADMITTED FOR WEAKNESS, MIRANDA, RESPIRATORY FAILURE, SEPSIS, ?OD PMH: HTN, HLD, HYPOTHYROIDISM, DRUG/HEROIN ABUSE Anthropometrics: 5'11" (PER PAST HEIGHTS), WT: 259# (118 KG), BMI: 36.1 Labs: GLU: 129, BUN: 34, CREAT: 1.5, CA+:7.9, ALB: 2.9, AST: 77, ALT: 43, GFR: 54.3, NA+:134 Meds: PROPOFOL, NACL, PROTONIX I/O & Bowel function: 1417/850 Skin Integrity: NO KNOWN SKIN ISSUES Estimated Nutrition Needs: 7347-0448 KCAL (15-20 KCAL/KG BW) 106-130 G PRO (0.9-1.1 G PRO/KG BW) FLUIDS CONSISTENT W/KCAL NEEDS OR MANAGE PER MD Assessment: CHART REVIEWED AND EVENTS NOTED. PT SEEN FOR NPO IN ICU ASSESSMENT. PT INTUBATED AND SEDATED W/PROPOFOL (RATE OF 57.6 ML/HR PROVIDING ~1520 KCAL FROM LIPIDS). NO PLANS IN PLACE FOR ALTERNATIVE NUTRITION SUPPORT AT THIS TIME. NO FAMILY IN ROOM AT TIME OF VISIT. RD TO FOLLOW. SEE RECOMMENDATIONS BELOW. Dx: INADEQUATE PROTEIN-ENERGY INTAKE R/T CURRENT DIAGNOSIS, VENT DEPENDENCE AEB NPO STATUS. -OBESITY CLASS II R/T LIFESTYLE AEB BMI OF 36.1. Intervention: 1. NPO Monitoring, Evaluation and Goals: 1. ENTERAL NUTRITION; PROVIDE >80% ESTIMATED NUTRIENT NEEDS AT GOAL 2. WEIGHTS; PROMOTE GRADUAL WEIGHT LOSS TOWARDS HEALTHY BMI 3. LABS; WNL 4. GI; PROMOTE REGULAR GI FUNCTION MONITOR: -PLANS FOR SUPPORT [facility] Nutrition Therapy DATE: 01/20/17 Patient: NADINE TAYLOR Physician: JOSEF Address: [address] Room/Bed: [address], Zip: [place] [id number] Admit Date: 01/19/17 Date of : [birth year] Height: 6 1 Weight: 257 117 -WEIGHTS -SEDATION RATE -EXTUBATION? Recommendations: 1. ONCE MEDICALLY FEASIBLE AND PT EXTUBATED, ADVANCE DIET PER BOOM TENDER + HEALTHY HEART DIET 2' PMH 2. IF PT REMAINS INTUBATED FOR >24 HOURS, CONSIDER PLACING DHT AND BEGIN ALTERNATIVE NUTRITION SUPPORT OF JEVITY 1.5 @ 20 ML/HR + SEDATION + SUGAR-FREE PROSTAT 5X DAILY -TOTAL PROVIDES 2740 KCAL, 106 G PRO, 365 ML FREE H20 ADD FREE H20 FLUSHES PER MD 3. ONCE PROPOFOL D/C'D, RECOMMEND ENTERAL NUTRITION SUPPORT OF JEVITY 1.5 @ 20 ML/HR, ADVANCE 10 ML q 6 HOURS TO GOAL RATE OF 60 ML/HR + SUGAR-FREE PROSTAT BID -PROVIDES 2360 KCAL, 121 G PRO, 1094 ML FREE H20 ADD FREE H20 FLUSHES PER MD RD WILL F/U PER PROTOCOL PT IS SEVERELY COMPROMISED Respectfully, ALANNA KIRKPATRICK MS, RD, LD Food and Nutritional Services [facility] cc: client file
--- NOTE | ~2017-01-19 | CR72 ---
[facility] A Service of [facility] & [facility] RADIOLOGY TEXT RESULTS PATIENT: NADINE TAYLOR LOCATION: [address] : [birth year] UNIT #: [id number] AGE: [address]: Wali Romano MD SEX: M ORDER DR: [id number] [facility] [address] [facility]. [place], [place] [address] [id number] I MR#: [id number] Acc #: [id number] NAME: NADINE TAYLOR : 1970 SEX: M STUDY DATE/TIME: 01/26/2017 5:19 UNIT: [facility] ROOM: [facility] STUDY DESCRIPTION: CR Chest Single View Portable Attending Physician: Wali Romano M.D. Ordering Physician: Jacqueline Woody M.D. Primary Care Physician: No Primary Care Physician MEDICAL IMAGING REPORT This report is preliminary unless electronic signature is present EXAM Portable chest 01/26. COMPARISON 01/25 HISTORY Respiratory failure. Endotracheal tube placement. Ventilator management since 01/19. FINDINGS An AP view is obtained. The patient is intubated. The tip of the ET tube is seen at the uppermost margin of the thoracic inlet. Left IJ line tip is in the SVC. Right IJ line tip is in the SVC. Nasoenteric tube is in the stomach. Heart size is stable. There continues be atelectasis or scarring in the left base. CONCLUSION 1. The ET tube is not well seen and appears to be at the upper aspect of the film at or near the thoracic inlet. Suggest it be advanced for optimal positioning. 2. Chronic infiltrates in the lungs. Left basilar atelectasis or scarring. Dictated by... Nadine Villarreal M.D. THIS IS AN ELECTRONICALLY VERIFIED REPORT Nadine Villarreal M.D. at 01/27/2017 3:21 PM SANJUANA/jorge luis TD: 01/26/2017 10:24 JOB #: [id number] [facility] A Service of [facility] RADIOLOGY TEXT RESULTS PATIENT: NADINE TAYLOR LOCATION: [facility] CICCU2-10 : [birth year] UNIT #: [id number] AGE: [address]: Wali Romano MD SEX: M ORDER DR: MEDICAL IMAGING REPORT Page 1 of 1 COPY
--- NOTE | ~2017-01-19 | CR72 ---
[facility] A Service of [facility] & [facility] RADIOLOGY TEXT RESULTS PATIENT: NADINE TAYLOR LOCATION: [address] : [birth year] UNIT #: [id number] AGE: [address]: Wali Romano MD SEX: M ORDER DR: [id number] [facility] [address] [facility]. [place], [place] [address] [id number] I MR#: [id number] Acc #: [id number] NAME: NDAINE TAYLOR : 1970 SEX: M STUDY DATE/TIME: UNIT: [facility] ROOM: [facility] STUDY DESCRIPTION: CR Chest Single View Portable Attending Physician: Wali Romano M.D. Ordering Physician: Brennen Hill M.D. Primary Care Physician: Primary Care Physician No MEDICAL IMAGING REPORT This report is preliminary unless electronic signature is present EXAM Portable chest 0618 at 0405 INDICATIONS Respiratory failure, endotracheal tube placement. Weakness. TECHNIQUE/COMPARISON AP portable chest is compared with 01/22/2017 FINDINGS ET tube mid trachea. Bilateral infiltrates, left greater than right, are stable with the exception of slight improvement in the right base and slight worsening in the left base. No pneumothorax. Dictated by... Geo Chaudhry Jr., M.D. THIS IS AN ELECTRONICALLY VERIFIED REPORT Geo Chaudhry Jr., M.D. at 01/23/2017 9:26 PM RLK/olimpia TD: 01/23/2017 11:32 JOB #: [id number] MEDICAL IMAGING REPORT Page 1 of 1 COPY
--- NOTE | ~2017-01-19 | OR ---
Unit #: [id number] #: [id number] Patient: NADINE TAYLOR [id number] [address] [place], [place] [address] [id number] MR#: [id number] NAME: NADINE TAYLOR ROOM: [facility] Date of Procedure: 02/09/2017 Admission Date: 01/19/2017 Surgeon: Alan Monahan M.D. : 1970 Attending Physician: Brady Hernandez M.D. Primary Care Physician: Primary Care Physician No OPERATIVE REPORT PREOPERATIVE DIAGNOSES The patient has respiratory failure, on ventilator and he has just had tracheostomy and likely be transferred to an intermediate term or long-term care facility. 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 PROCEDURES PERFORMED Upper gastrointestinal endoscopy and a PEG placement. POSTOPERATIVE DIAGNOSIS Uncomplicated placement of PEG tube. RECOMMENDATIONS Please see the chart for postoperative care of the PEG site and feeding instructions. SEDATION USED The patient was already on ventilator on propofol infusion. DESCRIPTION OF PROCEDURE Following detailed explanation of potential risks and complications of an upper endoscopy and a PEG placement namely perforation, bleeding, and complication related to sedation, the patient was laid in the supine position. The procedure was done at the bedside in intensive care unit. Lubricated tip of the Olympus video upper endoscope was passed through the bite block into the proximal esophagus under direct vision. The entire esophageal mucosa was examined and appeared normal. Z-line was nicely demarcated, there being no esophagitis or hiatus hernia. The scope was then advanced into the gastric cavity and the latter was insufflated. Mucosa of the fundus, body, and antrum was examined and appeared unremarkable. Pylorus was intubated with visualization of the normal duodenal bulb second and third part of the duodenum. Upon withdrawal and retroflexion; incisura, cardia, and greater curve was examined and no additional findings were noted. Using transillumination and finger indentation, a prospective PEG site was identified. The area was cleaned and draped with Betadine and 1% lidocaine infiltrative anesthesia was given. A small stab incision was made in the skin. Using Seldinger technique, a guidewire was placed in the gastric cavity and the latter was grasped using a polypectomy snare, and brought out through the oral cavity. A 20-Martiniquais PEG tube was reloaded over the guidewire and brought out through the stab incision. Appropriate feeding attachments and securing device were applied. The area was dressed. [facility] endoscopy Unit #: [id number] #: [id number] Patient: NADINE TAYLOR showed excellent position in the mushroom of the PEG tube. The scope was then withdrawn. The patient tolerated the procedure without any postprocedure complications. Dictated by... Anne Friend/cezar TD: 02/09/2017 10:53 JOB #: [id number] CC: Brady Hernandez M.D. OPERATIVE REPORT Page 1 of 1 X Alan Monahan MD X PROCEDURE OPERATIVE NOTE
--- NOTE | ~2017-01-19 | CR72 ---
[facility] A Service of [facility] RADIOLOGY TEXT RESULTS PATIENT: NADINE TAYLOR LOCATION: [address] : [birth year] UNIT #: [id number] AGE: [address]: Wali Romano MD SEX: M ORDER DR: [id number] [facility] [address] [facility]. [place], [place] [address] [id number] I MR#: [id number] Acc #: [id number] NAME: NADINE TAYLOR : 1970 SEX: M STUDY DATE/TIME: 02/02/2017 5:31 UNIT: [facility] ROOM: [facility] STUDY DESCRIPTION: CR Chest Single View Portable Attending Physician: Wali Romano M.D. Ordering Physician: Jacqueline Woody M.D. Primary Care Physician: Primary Care Physician No MEDICAL IMAGING REPORT This report is preliminary unless electronic signature is present EXAM Portable chest INDICATION Respiratory failure. Followup. PROCEDURE Frontal view chest COMPARISON 02/01/2017 FINDINGS Stable cardiomegaly. ET tube unchanged. Stable elevated right hemidiaphragm with right basilar atelectasis. No pneumothorax. IMPRESSION Stable. Dictated by... Mukul Kaplan M.D. THIS IS AN ELECTRONICALLY VERIFIED REPORT Mukul Kaplan M.D. at 02/02/2017 10:27 PM Negrita TD: 02/02/2017 09:06 JOB #: [id number] MEDICAL IMAGING REPORT Page 1 of 1 COPY
--- NOTE | ~2017-01-19 | CO ---
Unit #: [id number] #: [id number] Patient: ANDINE TAYLOR [id number] [address] [place], [place] [address] [id number] I MR#: [id number] NAME: NADINE TAYLOR ROOM: [facility] Age: 46 Sex: M Admission Date: 01/19/2017 : 1970 Attending Physician: Wali Romano M.D. Consultation Date: 01/23/2017 CONSULTATION REPORT REASON FOR CONSULTATION Fever. HISTORY OF PRESENT ILLNESS This is a 46-year-old gentleman, who is currently on the ventilator, hemodialysis, and sedated. He is unable to provide any information. Information was obtained through review of the chart, discussion with nursing staff, family members, etc. Apparently, he is a 46-year-old gentleman with a history of hypertension, hypothyroidism with active drug use. His urine drug screen was positive for three drugs on admission. He was admitted with 2 to 3 days history of generalized weakness, progressive cough, shortness of breath, and was in respiratory distress on admission with bilateral pulmonary infiltrates. He was intubated in the ER and brought to the ICU, where he was treated with vancomycin, clindamycin, and cefepime for presumed pneumonia. His blood cultures and sputum cultures have been negative so far. He developed progressive renal failure leading up to hemodialysis. His EF is 15% to 20%. Today, he spiked fever of 101, for which ID was consulted. It is to be noted the patient did not have any fever on admission and he had normal white count at the time of admission. His fever started 3 or 4 days later. Today, he has a fever of 101 without any significant hypotension. He is on 70% FiO2. He is intubated orally and mechanically ventilated with 70% FiO2. PAST MEDICAL HISTORY Hypertension, hypothyroidism, and hyperlipidemia. PAST SURGICAL HISTORY Knee surgery, details are not known. MEDICATIONS Current medications; Nepro, albuterol/ipratropium, pantoprazole, enoxaparin, aspirin, levothyroxine, clindamycin, vancomycin, and cefepime. Home medications include levothyroxine, aspirin, Lipitor, and Maxzide. ALLERGIES None. SOCIAL HISTORY He is a drug user according to his sister, who have not seen him for more than 6 months. He has a history of drug use in the past and strongly suspect that it may have relapsed. There is no information as to his intake of alcohol or tobacco use. Unit #: [id number] #: [id number] Patient: NADINE TAYLOR FAMILY HISTORY Unknown. SYSTEMIC REVIEW Unable to obtain from the patient. Chart was reviewed and discussions were held with the nursing staff. Pertinent findings are listed in the history of present illness. PHYSICAL EXAMINATION GENERAL: Reveals a young, obese white male, who is orally intubated. He is sedated and does not follow any commands. VITAL SIGNS: Temperature 99.7, T-max was 101.5 last night, heart rate is 100, respirations 22, and blood pressure 137/65 and there was no recent hypotension. NECK: Absolutely supple. There is no rash. He has trace edema bilaterally. LUNGS: Clear to percussion and auscultation. HEART: Heart sounds normal. ABDOMEN: Obese, soft, and nontender without organomegaly or ascites. Bowel sounds normal. NEUROLOGIC: He is obtunded, intubated, mechanically ventilated, and sedated. He does not follow any commands. However, there are no signs of meningeal irritation. DIAGNOSTIC STUDIES LABORATORY RESULTS: Microbiology studies showed negative blood, urine, and sputum cultures. Legionella and strep pneumo antigens were negative. HIV test is negative. Sodium 136, potassium 4, chloride 99, CO2 of 20, BUN 90, creatinine 6.4, and glucose 127. AST, ALT, alkaline phosphatase, and bilirubin are normal. Albumin is 2.1. White count is 9.8, hemoglobin 8.4, platelets 252, and neutrophils 77%. Random vancomycin level is 38. BNP 114. Lactic acid 0.8. Urinalysis on admission was negative for UTI. Urine drug screen was positive for methadone, amphetamines, and opiates. CK-MB was 26, troponin less than 0.05. White count on admission was 8.1. IMAGING STUDIES: His today's chest x-ray shows bilateral diffuse pulmonary infiltrates. Head CT was negative. IMPRESSION Main issue is multiorgan failure. The precipitating factor is unknown given the antecedent history of cough, shortness of breath, and fatigue. Pneumonia certainly is a possibility. Other possibility may include congestive heart failure with hypoperfusion and multiorgan failure. However, the patient did not have any fever on admission and new fever may indicate nosocomial acquired infection. RECOMMENDATIONS In view of progressive renal failure and toxic vancomycin level, I will discontinue vancomycin as well as clindamycin and cefepime, and treat him with Zyvox and Zosyn empirically. We will check serum procalcitonin level. Prognosis is guarded. Further recommendation will follow. Dictated by... Anne Aguiar/cezar Unit #: [id number] #: [id number] Patient: NADINE TAYLOR TD: 01/23/2017 14:55 JOB #: [id number] CONSULTATION REPORT Page 1 of 1 X Jose Armando Stewart MD X CONSULTATION REPORT
--- NOTE | ~2017-01-19 | CR72 ---
[facility] A Service of [facility] RADIOLOGY TEXT RESULTS PATIENT: NADINE TAYLOR LOCATION: [address] : [birth year] UNIT #: [id number] AGE: [address]: Brady Hernandez MD SEX: M ORDER DR: [id number] [facility] [address] [facility]. [place], [place] [address] [id number] I MR#: [id number] Acc #: [id number] NAME: NADINE TAYLOR : 1970 SEX: M STUDY DATE/TIME: 02/06/2017 17:50 UNIT: [facility] ROOM: [facility] STUDY DESCRIPTION: CR Chest Single View Portable Attending Physician: Brady Hernandez M.D. Ordering Physician: Brady Hernandez M.D. Primary Care Physician: Primary Care Physician No MEDICAL IMAGING REPORT This report is preliminary unless electronic signature is present EXAM Portable chest 02/06/2017 HISTORY Chest congestion. Failed central line attempt today. Possible pneumothorax. FINDINGS Compared with the previous exam performed at 5:30 a.m. the left internal jugular central line has been removed. There is no pneumothorax. There has been no other change in the position of the life support equipment. Nasogastric tube remains in place with tip below the diaphragm not visualized. Elevation right hemidiaphragm is noted with a decrease in infiltrate or atelectasis right base. Dictated by... Charli Altamirano M.D. THIS IS AN ELECTRONICALLY VERIFIED REPORT Charli Altamirano M.D. at 02/07/2017 2:10 PM LADONNA/berny TD: 02/07/2017 07:13 JOB #: [id number] MEDICAL IMAGING REPORT Page 1 of 1 COPY
--- NOTE | ~2017-01-19 | OR ---
Unit #: [id number] #: [id number] Patient: NADINE OWENS [id number] [address] [address] [id number] I MR#: [id number] NAME: NADINE OWENS ROOM: [facility] Date of Procedure: 02/06/2017 Admission Date: 01/19/2017 Surgeon: Brennen Hill M.D. : 1970 Attending Physician: Brady Hernandez M.D. Primary Care Physician: Primary Care Physician No OPERATIVE REPORT PROCEDURE PERFORMED Central line placement. INDICATIONS FOR PROCEDURE Venous access for multiple drips and pressors. COMPLICATIONS None. DESCRIPTION OF PROCEDURE Mr. Owens was prepped and draped in sterile fashion. I chose the left subclavian because he has a right tunneled IJ catheter and he previously had a left IJ central line. He was prepped and draped in sterile fashion and that included a hat for me and a mask for me and a full gown for me as well as a full sheet for him. The site was prepped x2 with ChloraPrep. Using the subcu needle, he was given lidocaine subcutaneously, then the large needle was used to go under the clavicle and the left subclavian vein was found on one stick. I gave it a small turn medially and the guidewire was threaded with no difficulty. This was gently dilated and then the triple-lumen catheter was placed over the guidewire with no difficulty and all 3 ports were aspirated with no difficulty. The area was then covered with a sterile covering. Chest x-ray was done after the line was sewn into place and I have seen the x-ray and the line is in good position and there was no pneumothorax. The line is ready for use. Dictated by... Anne Tucker/cezar TD: 02/07/2017 03:07 JOB #: [id number] Unit #: [id number] #: [id number] Patient: NADINE OWENS OPERATIVE REPORT Page 1 of 1 X Brennen Hill MD X PROCEDURE OPERATIVE NOTE
--- NOTE | ~2017-01-19 | CR7 ---
[facility] Service of [facility] RADIOLOGY TEXT RESULTS PATIENT: NADINE TAYLOR LOCATION: [address] : [birth year] UNIT #: [id number] AGE: [address]: Wali Romano MD SEX: M ORDER DR: [id number] [facility] [address] [facility]. [place], [place] [address] [id number] I MR#: [id number] Acc #: [id number] NAME: NADINE TAYLOR : 1970 SEX: M STUDY DATE/TIME: 01/21/2017 17:23 UNIT: [facility] ROOM: [facility] STUDY DESCRIPTION: CR Abdomen Single AP View Attending Physician: Wali Romano M.D. Ordering Physician: Jacqueline Woody M.D. Primary Care Physician: No Primary Care Physician MEDICAL IMAGING REPORT This report is preliminary unless electronic signature is present EXAM Supine radiograph of the abdomen 01/21/2017 HISTORY Dobbhoff tube placement. FINDINGS Supine radiograph of the abdomen presented. Flexible feeding tube extends to the level of distal stomach. Visualized bowel gas pattern normal. Degenerative changes in spine. No acute-appearing bony abnormality. Extensive airspace disease bilateral visualized lung bases. See today's chest radiograph for further assessment. Where this examination overlaps chest radiograph, no change in appearance of lung bases. Dictated by... Nadine Scott M.D. THIS IS AN ELECTRONICALLY VERIFIED REPORT Nadine Scott M.D. at 01/26/2017 10:15 AM Veronica TD: 01/21/2017 22:42 JOB #: [id number] MEDICAL IMAGING REPORT Page 1 of 1 COPY
--- NOTE | ~2017-01-19 | OR ---
Unit #: [id number] #: [id number] Patient: NADINE TAYLOR [id number] [address] [place], [place] [address] [id number] I MR#: [id number] NAME: NADINE TAYLOR [facility]OM: [facility] Date of Procedure: 02/09/2017 Admission Date: 01/19/2017 Surgeon: Maury Dan M.D. : 1970 Attending Physician: Brady Hernandez M.D. Primary Care Physician: Primary Care Physician No OPERATIVE REPORT PREOPERATIVE DIAGNOSES Respiratory failure and prolonged ventilatory support. POSTOPERATIVE DIAGNOSES Respiratory failure and prolonged ventilatory support. PROCEDURE PERFORMED Flexible fiberoptic bronchoscopy with bronchial washings collected; percutaneous tracheostomy using #8 Shiley tracheostomy tube. ANESTHESIA MAC. ESTIMATED BLOOD LOSS Less than 5 mL. COMPLICATIONS None. DESCRIPTION OF PROCEDURE The patient was left in his intensive care unit bed. After appropriate monitoring lines had been placed, IV sedation and IV was given per the Anesthesia Department. A rolled sheet was placed beneath the patient's shoulders such as to extend the neck. Flexible fiberoptic bronchoscopy was performed per the endotracheal tube per a side-port adapter placed on the tube. There was some secretions present in the distal trachea that were suctioned free. The cyn was sharp. The right upper lobe was examined to its subsegmental bronchi level and found to be within normal limits. There was a moderate amount of grayish secretions present in the right lower lobe which were irrigated and suctioned free. There was some mild erythema of the mucosa of the right lower lobe after the secretions had been removed, but no endobronchial masses were seen. The right middle lobe was examined to its subsegmental bronchi level with no endobronchial lesions being seen but with some mild mucosal erythema. The left mainstem bronchus was within normal limits. There was some grayish secretions present in the left lower lobe which were irrigated and suctioned free. There was also noted to be some mild erythema of the mucosa. No endobronchial lesions were seen of the left lower lobe bronchus. The left upper lobe was examined to its subsegmental bronchi level and found to be fairly normal. The neck and upper chest were prepped with ChloraPrep and draped in a sterile fashion. The cuff on the endotracheal tube was deflated and the tube then withdrawn under direct Unit #: [id number] #: [id number] Patient: NADINE TAYLOR vision with the scope in the distal portion of the tube. The cricoid cartilage and upper rings were visualized. Anesthesia was obtained using local 1% Xylocaine. The anterior wall of the trachea was then entered with an Angiocath between rings 2 and 3. The guidewire was passed per this Angiocath down into the tracheobronchial tree. A small incision was made at the area, where the guidewire entered the skin. This area was spread slightly with a hemostat. A small dilator was passed over the guidewire into the trachea under direct vision with the bronchoscope. It was then removed keeping the guidewire in place. The Blue Rhino dilator was passed over a guide catheter and then they were both passed over the guidewire into the trachea. The Blue Rhino dilator was removed keeping the guide catheter and guidewire in place. A #8 Shiley tracheostomy tube with the appropriate size dilator in place was then passed over the guidewire and guide catheter into the trachea. The cuff of the endotracheal tube seemed to seat well in the trachea. The guidewire, guide catheter, and dilator were all removed. The inner cannula of the tracheostomy tube was inserted and the balloon inflated. The patient was then ventilated per this new tracheostomy tube. Flexible bronchoscopy was performed per the tracheostomy tube per a side-port adapter placed on the tube. There was only a small amount of blood present in the tracheobronchial tree distal to the end of the tracheostomy tube. This was suctioned free. The tracheostomy tube seemed to be in good position in the trachea and well above the cyn. The bronchoscope was then removed. The tracheostomy tube was sutured in place to the skin using interrupted 3-0 Prolene suture. A cut drain sponge was then placed beneath the tracheostomy tube. Tracheostomy tube was also secured in place using an adjustable tracheostomy collar. Estimated blood loss in the procedure was less than 5 mL. The patient tolerated the procedure well. Dictated by.Kanwal. Anne Meeks/cezar TD: 02/10/2017 02:14 JOB #: [id number] OPERATIVE REPORT Page 1 of 1 X Maury Dan MD PROCEDURE OPERATIVE NOTE
--- NOTE | ~2017-01-19 | CR72 ---
[facility] A Service of [facility] RADIOLOGY TEXT RESULTS PATIENT: NADINE TAYLOR LOCATION: [address] : [birth year] UNIT #: [id number] AGE: [address]: Brady Hernnadez MD SEX: M ORDER DR: [id number] [facility] [address] [facility]. [place], [place] [address] [id number] I MR#: [id number] Acc #: [id number] NAME: NADINE TAYLOR : 1970 SEX: M STUDY DATE/TIME: 02/12/2017 5:35 UNIT: [facility] ROOM: [facility] STUDY DESCRIPTION: CR Chest Single View Portable Attending Physician: Brady Hernandez M.D. Ordering Physician: Jacqueline Woody M.D. Primary Care Physician: No Primary Care Physician MEDICAL IMAGING REPORT This report is preliminary unless electronic signature is present EXAM Chest x-ray, single-view, portable. HISTORY Short of air, sepsis, respiratory failure, tube and line placement. COMMENT Single frontal portable view of the chest timed 5:35, 02/12/2017. COMPARISON Compared to 02/10/2017. FINDINGS Patient has a tracheostomy satisfactory. Double-lumen catheter right IJ approach unchanged. Left-sided catheter unchanged. Heart size is top normal. Asymmetric elevation of the right hemidiaphragm again noted with fairly low lung volumes. There is patchy airspace disease at the right base to a lesser extent the left base. This is probably improving on the left, probably not changed on the right. No pneumothorax or layering pleural fluid. IMPRESSION Tubes and lines unchanged. Low lung volumes with elevation of the right hemidiaphragm. Some improvement in the patchy airspace disease at the left base. Right-sided airspace disease remains. Continued follow up recommended. Dictated by... Chloé Felix M.D. THIS IS AN ELECTRONICALLY VERIFIED REPORT Chloé Felix M.D. at 02/13/2017 7:18 AM [facility] A Service of [facility] RADIOLOGY TEXT RESULTS PATIENT: NADINE TAYLOR LOCATION: CICCU2 CICCU2-10 : [birth year] UNIT #: [id number] AGE: [address]: Brady Hernandez MD SEX: M ORDER DR: Wayne TD: 02/12/2017 17:04 JOB #: [id number] MEDICAL IMAGING REPORT Page 1 of 1 COPY
--- NOTE | ~2017-01-19 | XA93 ---
[facility] A Service of [facility] RADIOLOGY TEXT RESULTS PATIENT: NADINE OWENS LOCATION: CICCU2 CICCU2-10 : [birth year] UNIT #: [id number] AGE: [address]: Brady Hernandez MD SEX: M ORDER DR: [id number] [facility] [address] [facility]. [place], [place] [address] [id number] I MR#: [id number] Acc #: [id number] NAME: NADINE OWENS : 1970 SEX: M STUDY DATE/TIME: 02/03/2017 8:14 UNIT: CICCU2 ROOM: [facility] STUDY DESCRIPTION: XA CVC Tunneled WO Pump/Port Attending Physician: Wali Romano M.D. Ordering Physician: Wali Romano M.D. Primary Care Physician: No Primary Care Physician MEDICAL IMAGING REPORT This report is preliminary unless electronic signature is present EXAM Tunnel dialysis catheter placement HISTORY Mr. Owens is a 46-year-old man who requires long-term dialysis access. He had a preexisting nontunneled dialysis catheter within the right internal jugular vein. This catheter was placed on January 23, 2017. PROCEDURE The procedure was explained to the patient's national sales representative including risks, benefits, and potential complications, potential for alternative forms of treatment. Informed consent was obtained and prior to initiating the procedure, a formal time-out procedure was performed. Patient's preexisting nontunneled dialysis catheter was removed and pressure was applied until hemostasis was obtained. Using all elements maximal sterile barrier technique including hand hygiene, caps, sterile gowns, and gloves and masks, the right neck was prepped with 2% Chlorhexidine for cutaneous antisepsis and covered with a large sterile sheet. The ultrasound probe was covered with a sterile probe cover and sterile gel was applied. Real-time sterile ultrasound guidance was used to localize the right internal jugular vein. More superiorly where the preexisting catheter had been the patient does have some clot. Although no clot was identified inferiorly at the expected puncture site. Vein was compressible. Hard copy ultrasound image was obtained after local anesthesia with 1% Xylocaine. The vein was punctured. Using real-time sterile skin guidance and an 0.18 guidewire was advanced into the superior vena cava under fluoroscopic guidance. Micropuncture sheath was placed and an Amplatz wire was advanced into the inferior vena cava. The skin and subcutaneous tissues of the right anterolateral chest wall were anesthetized with lidocaine and lidocaine with epinephrine. A small skin incision was made. [facility] A Service of [facility] RADIOLOGY TEXT RESULTS PATIENT: NADINE OWENS LOCATION: CICCU2 CICCU2-10 : [birth year] UNIT #: [id number] AGE: [address]: Brady Hernandez MD SEX: M ORDER DR: The catheter was then tunneled up through the right anterolateral chest wall to insertion site at the neck. Tract was serially dilated. Peel-away sheath was advanced over the wire and the catheter was advanced through the peel-away sheath and positioned within the right atrium. Following placement of the catheter, it flushed and aspirated easily. The catheter was secured distally with two 2-0 Prolene sutures. The insertion site of the neck was closed using a single 4-0 Monocryl suture and Dermabond was applied to the wound to act as a dressing. Position of the catheter was confirmed with a radiographic image. Total fluoroscopy time was 0.1 minutes. AK was 2 mGy. The patient did receive 75 mcg of Fentanyl and continuous monitoring was provided throughout the procedure. IMPRESSION Successful placement of a tunneled right internal jugular vein dialysis catheter which terminates within the right atrium. This catheter is ready for immediate use. Ultrasound and fluoroscopy were used during placement of the catheter and permanent images were saved. Dictated by... Naima Kitchen M.D. THIS IS AN ELECTRONICALLY VERIFIED REPORT Naima Kitchen M.D. at 02/07/2017 5:22 PM AFF/aa TD: 02/04/2017 14:42 JOB #: [id number] MEDICAL IMAGING REPORT Page 1 of 1 COPY
--- NOTE | ~2017-01-19 | CR72 ---
[facility] A Service of [facility] RADIOLOGY TEXT RESULTS PATIENT: NADINE TAYLOR LOCATION: [address] : [birth year] UNIT #: [id number] AGE: [address]: Wali Romano MD SEX: M ORDER DR: [id number] [facility] [address] [facility]. [place], [place] [address] [id number] I MR#: [id number] Acc #: [id number] NAME: NADINE TAYLOR : 1970 SEX: M STUDY DATE/TIME: 02/01/2017 5:49 UNIT: [facility] ROOM: [facility] STUDY DESCRIPTION: CR Chest Single View Portable Attending Physician: Wali Romano M.D. Ordering Physician: Jacqueline Woody M.D. Primary Care Physician: Primary Care Physician No MEDICAL IMAGING REPORT This report is preliminary unless electronic signature is present EXAM Portable chest 02/01/2017 INDICATION Respiratory failure for 13 days. History of overdose. FINDINGS AP portable chest is compared with 01/31/2017. Tubes and lines are unchanged and in good position. There is elevation of the right hemidiaphragm with infiltrate or atelectasis at the right base, unchanged. Left lung is clear. No pneumothorax. Heart size stable. Dictated by... Geo Chaudhry Jr., M.D. THIS IS AN ELECTRONICALLY VERIFIED REPORT Geo Chaudhry Jr., M.D. at 02/01/2017 12:56 PM CHANTELL/shahid TD: 02/01/2017 12:52 JOB #: [id number] MEDICAL IMAGING REPORT Page 1 of 1 COPY
--- NOTE | ~2017-01-19 | MR18 ---
[facility] A Service of [facility] RADIOLOGY TEXT RESULTS PATIENT: NADINE TAYLOR [facility] [birth year] UNIT #: [id number] AGE: [address]: Wali Romano MD SEX: M ORDER DR: [id number] [facility] [address] [facility]. [place], [place] [address] [id number] I MR#: [id number] Acc #: [id number] NAME: NADINE TAYLOR : 1970 SEX: M STUDY DATE/TIME: 02/01/2017 20:03 UNIT: [facility] ROOM: [facility] STUDY DESCRIPTION: MR Brain Wo Contrast Attending Physician: Wali Romano M.D. Ordering Physician: Brady Hernandez M.D. Primary Care Physician: No Primary Care Physician MRI CENTER REPORT This report is preliminary unless electronic signature is present. EXAM MRI brain without contrast. INDICATIONS Confusion and unresponsiveness since 01/19/2017. PROCEDURE Multiplanar, multisequence MR imaging of the brain without the administration of contrast. COMPARISON Head CT from 01/26/2017. FINDINGS Study is motion degraded. There is no acute hemorrhage, abnormal mass effect, extraaxial fluid collection or hydrocephalus. There is an 11 mm somewhat linear area of questionable restricted diffusion in the right parieto-occipital region. This has subtly increased T2 signal. No mass effect. Flow voids major intracranial great vessels intact. Bilateral mastoid air cell effusions and opacity throughout the paranasal sinuses. IMPRESSION 1. 11 mm linear area of questionable restricted diffusion. Does raise suspicion for a small acute or early subacute infarct in the right parieto-occipital region. There is no hemorrhage or significant mass effect. 2. Mastoid air cell effusions and paranasal sinus opacity nonspecific in a ventilated patient. Dictated by... Mukul Kaplan M.D. [facility] A Service of [facility] RADIOLOGY TEXT RESULTS PATIENT: NADINE TAYLOR [facility] [birth year] UNIT #: [id number] AGE: [address]: Wali Romano MD SEX: M ORDER DR: THIS IS AN ELECTRONICALLY VERIFIED REPORT Mukul Kaplan M.D. at 02/02/2017 10:28 PM AUTUMN/sanaz TD: 02/02/2017 06:44 JOB #: [id number] MRI CENTER REPORT Page 1 of 1 COPY
--- NOTE | ~2017-01-19 | CO ---
Unit #: [id number] #: [id number] Patient: NADINE OWENS [id number] [address] [place], [place] [address] [id number] I MR#: [id number] NAME: NADINE OWENS ROOM: [facility] Age: 46 Sex: M Admission Date: 01/19/2017 : 1970 Attending Physician: Wali Romano M.D. CONSULTATION REPORT REASON FOR CONSULTATION Respiratory failure. HISTORY OF PRESENT ILLNESS Mr. Owens is a 46-year-old male, who apparently uses IV drugs, who presented to the hospital complaining of weakness. In the hospital, he became rather poorly responsive and was given Narcan x1. He then became erratic and poorly cooperative and difficult to control. He was intubated by the ER with etomidate and given ketamine. He was started on propofol. Family is not present, but apparently he does use IV drugs, I believe including heroin. I am not certain when he last used it. PAST MEDICAL HISTORY Otherwise significant for hypertension and lung disease, thyroid issues. PAST SURGICAL HISTORY Include knee surgery. HOME MEDICATIONS Uncertain, but includes antihypertensive, cholesterol medicine, and some type of anticoagulation. ALLERGIES I believe no known drug allergies. SOCIAL HISTORY It is uncertain whether he smokes, but he does use IV drugs. FAMILY HISTORY Unobtainable. REVIEW OF SYSTEMS Unobtainable. PHYSICAL EXAMINATION GENERAL: He presents as a middle-aged male, presently intubated orally and on the ventilator. VITAL SIGNS: Temperature was 98.6, pulse 88, respirations 20 with ventilator set at 16, blood pressure 114/57, saturation is 96%. HEENT: Significant for breathing is mechanically ventilated. He has inspiratory and expiratory rhonchi bilaterally. There is a serosanguineous material coming out of the endotracheal tube. HEART: Regular. Unit #: [id number] #: [id number] Patient: NADINE OWENS ABDOMEN: Soft. Bowel sounds are present. Tenderness is uncertain. EXTREMITIES: Without edema. NEUROLOGIC: He is sedated. DIAGNOSTIC STUDIES IMAGING STUDIES: His chest x-ray was seen by me after intubation. He has bilateral diffuse infiltrates with somewhat of a nodular pattern. The x-ray prior to intubation does reveal a fine nodular diffuse infiltrate. LABORATORY RESULTS: His white blood cell count was 8.1, H and H of 10.1 and 31.8, 185,000 platelets. Serum chemistry is significant for BUN of 36, creatinine 2, of 3.3, bicarb was normal at 26, glucose elevated at 224. AST mildly elevated at 77, ALT mildly elevated at 43. He had a lactic acid of 1.8, which actually is within normal limits by our scales. Chem tox screen significant for positive methadone, positive amphetamines, positive opiates. Urinalysis; 1+ protein, 5 to 10 white blood cells per high-powered field. Blood cultures are sent and urine cultures are sent. IMPRESSION 1. Acute hypoxemic respiratory failure. 2. Acute noncardiogenic pulmonary edema. This could be because of a diffuse pneumonia. This could be an acute pneumonitis due to other reasons. This could be acute noncardiogenic pulmonary edema due to acute opiate usage. I do not think this is cardiogenic pulmonary edema. Aspiration is not out of the question; although, with coming out of the endotracheal tube, really almost looks like pulmonary edema fluid. 3. History of hypertension. PLAN He will be treated with vancomycin and cefepime. I will add briefly clindamycin. I would be careful about fluid overloading him. Even if we have any concerns of sepsis, fluid overload again will get us to the point where he will not be able to be oxygenated. [place] is certainly guarded. Thank you very much for allowing me to participate in the care of this patient. Dictated by... Brennen Hill M.D. ADAM/cezar TD: 01/20/2017 17:01 JOB #: [id number] CONSULTATION REPORT Page 1 of 1 X Brennen Hill MD X CONSULTATION REPORT
--- NOTE | ~2017-01-19 | CR72 ---
[facility] A Service of [facility] RADIOLOGY TEXT RESULTS PATIENT: NADINE TAYLOR LOCATION: [address] : [birth year] UNIT #: [id number] AGE: [address]: Wali Romano MD SEX: M ORDER DR: [id number] [facility] [address] [facility]. [place], [place] [address] [id number] I MR#: [id number] Acc #: [id number] NAME: NADINE TAYLOR : 1970 SEX: M STUDY DATE/TIME: 01/21/2017 5:19 UNIT: [facility] ROOM: [facility] STUDY DESCRIPTION: CR Chest Single View Portable Attending Physician: Wali Romnao M.D. Ordering Physician: Jacqueline Woody M.D. Primary Care Physician: Primary Care Physician No MEDICAL IMAGING REPORT This report is preliminary unless electronic signature is present EXAM Portable chest INDICATION Follow up diffuse infiltrates. FINDINGS This portable view of the chest is compared with yesterday's study. There has been no change in diffuse bilateral infiltrates. The heart size is normal and the endotracheal tube is in good position. Dictated by... Sohan Montoya M.D. THIS IS AN ELECTRONICALLY VERIFIED REPORT Sohan Montoya M.D. at 01/21/2017 1:55 PM YFN/shahid TD: 01/21/2017 06:26 JOB #: [id number] MEDICAL IMAGING REPORT Page 1 of 1 COPY
--- NOTE | ~2017-01-19 | EKG ---
PATIENT: NADINE TAYLOR UNIT #: [id number] Ventricular Rate: 92 BPM Atrial Rate: 92 BPM P-R Interval: 150 ms QRS Duration: 96 ms Q-T Interval: 392 ms QTC Calculation(Bezet): 484 ms P [place]: 40 degrees Calculated R [place]: 22 degrees Calculated T [place]: 55 degrees Diagnosis Line: Normal sinus rhythm Diagnosis Line: Nonspecific T wave abnormality Diagnosis Line: Prolonged QT Diagnosis Line: Abnormal ECG Diagnosis Line: No previous ECGs available Diagnosis Line: Confirmed by CHARLA WOLFE MD ([id number]) on Diagnosis Line: 01/21/2017 3:43:54 PM INTERPRETING MD: LEELA
--- NOTE | ~2017-01-19 | CR72 ---
[facility] A Service of [facility] RADIOLOGY TEXT RESULTS PATIENT: NADINE TAYLOR LOCATION: [address] : [birth year] UNIT #: [id number] AGE: [address]: Brady Hernandez MD SEX: M ORDER DR: [id number] [facility] [address] [facility] [place] [facility]. [place], [place] [address] [id number] I MR#: [id number] Acc #: [id number] NAME: NADINE TAYLOR : 1970 SEX: M STUDY DATE/TIME: 02/09/2017 8:40 UNIT: [facility] ROOM: [facility] STUDY DESCRIPTION: CR Chest Single View Portable Attending Physician: Brady Hernandez M.D. Ordering Physician: Maury Dan M.D. Primary Care Physician: Primary Care Physician No MEDICAL IMAGING REPORT This report is preliminary unless electronic signature is present EXAM Portable chest radiograph INDICATION Shortness of breath and sepsis since January 19. FINDINGS Cardiomegaly and vascular congestion are noted. These have worsened when compared to the earlier examination. The patient has a right internal jugular vein tunneled dialysis catheter extending into the superior vena cava. There is a left subclavian central venous line also extending into the superior vena cava. Tracheostomy is present. There is a lucency seen underlying the right hemidiaphragm. Intraperitoneal free air cannot be excluded. I wonder if perhaps this could be related to gastrostomy tube placement, as patient no longer has an endotracheal tube and no longer has a weighted enteric feeding tube. Please correlate with surgical history. The patient is also noted to have some increased bibasilar atelectasis when compared to the earlier study. Dictated by... Naima Kitchen M.D. THIS IS AN ELECTRONICALLY VERIFIED REPORT Naima Kitchen M.D. at 02/10/2017 7:30 AM KRISTY/cathleen TD: 02/09/2017 13:33 JOB #: [id number] MEDICAL IMAGING REPORT Page 1 of 1 COPY
--- NOTE | ~2017-01-19 | CR7 ---
[facility] A Service of [facility] RADIOLOGY TEXT RESULTS PATIENT: NADINE TAYLOR LOCATION: [address] : [birth year] UNIT #: [id number] AGE: [address]: Wali Romano MD SEX: M ORDER DR: [id number] [facility] [address] [facility]. [place], [place] [address] [id number] I MR#: [id number] Acc #: [id number] NAME: NADINE TAYLOR : 1970 SEX: M STUDY DATE/TIME: 01/25/2017 8:49 [facility] STUDY DESCRIPTION: CR Abdomen Single AP View Attending Physician: Wali Romano M.D. Ordering Physician: Physician Non-Staffp Primary Care Physician: No Primary Care Physician MEDICAL IMAGING REPORT This report is preliminary unless electronic signature is present EXAM Single view abdomen. INDICATION Leukocytosis. Fever. TECHNIQUE Single, portable, AP view of the abdomen compared to 01/21/2017. FINDINGS An enteric tube is below the diaphragm with the tip over the gastric antrum. The bowel gas pattern is nonobstructive. There is a right common femoral catheter. IMPRESSION Enteric tube is below the diaphragm with the tip projecting over the gastric antrum. Nonobstructive bowel gas pattern. Dictated by... Hardy Mortensen M.D. THIS IS AN ELECTRONICALLY VERIFIED REPORT Hardy Mortensen M.D. at 01/25/2017 4:46 PM THEA/norberto TD: 01/25/2017 14:02 JOB #: [id number] MEDICAL IMAGING REPORT Page 1 of 1 COPY
--- NOTE | ~2017-01-19 | CR72 ---
[facility] A Service of [facility] & [facility] RADIOLOGY TEXT RESULTS PATIENT: NADINE TAYLOR LOCATION: [place] [address]-10 : [birth year] UNIT #: [id number] AGE: [address]: Wali Romano MD SEX: M ORDER DR: [id number] [facility] [address] [facility]. [place], [place] [address] [id number] I MR#: [id number] Acc #: [id number] NAME: NADINE TAYLOR : 1970 SEX: M STUDY DATE/TIME: 01/20/2017 5:13 UNIT: [facility] ROOM: [facility] STUDY DESCRIPTION: CR Chest Single View Portable Attending Physician: Anna Grant M.D. Ordering Physician: Brennen Hill M.D. Primary Care Physician: Primary Care Physician No MEDICAL IMAGING REPORT This report is preliminary unless electronic signature is present EXAM Portable chest INDICATION Bilateral infiltrates followup. Follow up endotracheal tube. FINDINGS Today's portable view of the chest is compared with yesterday's study. Dense bilateral diffuse infiltrates are stable and the endotracheal tube is in good position. Dictated by... Sohan Montoya M.D. THIS IS AN ELECTRONICALLY VERIFIED REPORT Sohan Montoya M.D. at 01/20/2017 1:21 PM YFN/shahid TD: 01/20/2017 06:37 JOB #: [id number] MEDICAL IMAGING REPORT Page 1 of 1 COPY
--- NOTE | ~2017-01-19 | CR72 ---
[facility] A Service of [facility] & [facility] RADIOLOGY TEXT RESULTS PATIENT: NADINE TAYLOR LOCATION: [address] : [birth year] UNIT #: [id number] AGE: [address]: Wali Romano MD SEX: M ORDER DR: [id number] [facility] [address] [place], [place] [address] [id number] I MR#: [id number] Acc #: [id number] NAME: NADINE TAYLOR : 1970 SEX: M STUDY DATE/TIME: 01/29/2017 5:23 UNIT: [facility] ROOM: [facility] STUDY DESCRIPTION: CR Chest Single View Portable Attending Physician: Wali Romano M.D. Ordering Physician: Jacqueline Woody M.D. Primary Care Physician: Primary Care Physician No MEDICAL IMAGING REPORT This report is preliminary unless electronic signature is present EXAM Portable chest INDICATION Respiratory failure. Followup. PROCEDURE Frontal view chest COMPARISON 01/28/2017 FINDINGS Heart size is unchanged. ET tube stable. No dense consolidation, pleural fluid or pneumothorax. IMPRESSION Stable. Dictated by... Mukul Kaplan M.D. THIS IS AN ELECTRONICALLY VERIFIED REPORT Mukul Kaplan M.D. at 01/29/2017 10:09 PM Negrita TD: 01/29/2017 11:39 JOB #: [id number] MEDICAL IMAGING REPORT Page 1 of 1 COPY
--- NOTE | ~2017-01-19 | CR72 ---
[facility] A Service of [facility] & [facility] RADIOLOGY TEXT RESULTS PATIENT: NADINE TAYLOR LOCATION: [address] : [birth year] UNIT #: [id number] AGE: [address]: Brady Hernandez MD SEX: M ORDER DR: [id number] [facility] [address] [place], [place] [address] [id number] I MR#: [id number] Acc #: [id number] NAME: NADINE TAYLOR : 1970 SEX: M STUDY DATE/TIME: 02/16/2017 5:49 UNIT: [facility] ROOM: [facility] STUDY DESCRIPTION: CR Chest Single View Portable Attending Physician: Brady Hernandez M.D. Ordering Physician: Brennen Hill M.D. Primary Care Physician: Primary Care Physician No MEDICAL IMAGING REPORT This report is preliminary unless electronic signature is present EXAM Single view chest INDICATION Respiratory failure. FINDINGS Single portable AP view of the chest compared to 02/14/2017 and 02/13/2017. Support lines and tubes remain in place. Heart and mediastinal contours are stable. No new pulmonary opacities. IMPRESSION No interval change. Dictated by... Hardy Mortensen M.D. THIS IS AN ELECTRONICALLY VERIFIED REPORT Hardy Mortensen M.D. at 02/16/2017 8:02 AM THEA/shahid TD: 02/16/2017 07:18 JOB #: [id number] MEDICAL IMAGING REPORT Page 1 of 1 COPY
--- NOTE | ~2017-01-19 | CR72 ---
[facility] A Service of [facility] & [facility] RADIOLOGY TEXT RESULTS PATIENT: NADINE TAYLOR LOCATION: [address] : [birth year] UNIT #: [id number] AGE: [address]: Brady Hernandez MD SEX: M ORDER DR: [id number] [facility] [address] [place], [place] [address] [id number] I MR#: [id number] Acc #: [id number] NAME: NADINE TAYLOR : 1970 SEX: M STUDY DATE/TIME: 02/09/2017 4:07 UNIT: [facility] ROOM: [facility] STUDY DESCRIPTION: CR Chest Single View Portable Attending Physician: Brady Hernandez M.D. Ordering Physician: Jacqueline Woody M.D. Primary Care Physician: No Primary Care Physician MEDICAL IMAGING REPORT This report is preliminary unless electronic signature is present EXAM Single view chest INDICATIONS Respiratory failure. Sepsis. Acute renal insufficiency. COMPARISON Single portable AP view of the chest compared with 02/08/2017. FINDINGS Support lines and tubes remain in place. Heart and mediastinal contours are stable. No pleural effusion. IMPRESSION No acute cardiopulmonary findings. Dictated by... Hardy Mortensen M.D. THIS IS AN ELECTRONICALLY VERIFIED REPORT Hardy Mortensen M.D. at 02/09/2017 11:40 PM THEA/aryan TD: 02/09/2017 11:53 JOB #: [id number] MEDICAL IMAGING REPORT Page 1 of 1 COPY
--- NOTE | ~2017-01-19 | CO ---
Unit #: [id number] #: [id number] Patient: NADINE OWENS [id number] [address] [place], [place] [address] [id number] I MR#: [id number] NAME: NADINE OWENS ROOM: [facility] Age: 46 Sex: M Admission Date: 01/19/2017 : 1970 Attending Physician: Brady Hernandez M.D. CONSULTATION REPORT REASON FOR CONSULTATION Requesting a consult by Dr. Maury Dan regarding tracheostomy placement. HISTORY OF PRESENT ILLNESS Mr. Nadine Owens is a 46-year-old male, who came to the emergency room on 01/19/2017 with respiratory distress. His screen was positive for methadone, heroin, and amphetamines. He was given Narcan, which failed and he was intubated. He has remained on the ventilator since that time. He has pneumonia which grew out Enterobacter on 01/25/2017. He has acute renal failure and is on CRRT. He has cardiomegaly with EF showing 10% on echocardiogram and he is currently on a fentanyl drip. PAST MEDICAL HISTORY Other than above is hypothyroidism, hypertension, hyperlipidemia, polysubstance abuse, and knee surgery. ALLERGIES He has no known allergies. MEDICATIONS Reviewed and remain in the chart. SOCIAL HISTORY He lives with a girlfriend, estranged from his family. Although his sister is at the bedside and states that he has been clean for 12 years until recently. FAMILY HISTORY Negative for any illicit drug use. He does have one daughter, who is an addict as well. REVIEW OF SYSTEMS Unable to obtain due to patient's intubation. PHYSICAL EXAMINATION VITAL SIGNS: Temperature is 98.7, heart rate is 83, respiratory rate is 24, blood pressure is 144/85, he is orally intubated on ventilator. NEUROLOGIC: Unresponsive, on fentanyl drip, unable to fully assess mental status. HEENT: Normocephalic. No facial asymmetry. CARDIOVASCULAR: S1, S2 without rub without murmur. No S3 or S4. 1+ peripheral edema. ABDOMEN: Round, somewhat distended. There is no hepatosplenomegaly and he has bowel sounds noted. Unit #: [id number] #: [id number] Patient: NADINE OWENS EXTREMITIES: Warm and dry. Has 1+ edema. There is no clubbing or cyanosis. There is a central line in place on the left which is triple lumen and on the right he has a hemodialysis catheter placed. He reports no history of previous tracheostomy or surgery to the chest. DIAGNOSTIC STUDIES LABORATORY RESULTS: BUN 148, creatinine 5.5, phos 18.3, sodium 133, potassium 6.8, and glucose 202. WBCs 16 up from 13.8, hemoglobin 11.7, hematocrit 38.5, and platelets 342. Culture and sensitivity of sputum culture showing on 02/01/2017 they grew out Enterobacter. Blood cultures are negative. IMPRESSION 1. Respiratory failure with failure to wean. 2. Pneumonia. 3. IV drug use. 4. Cardiomyopathy with an ejection fraction of 10%. 5. Acute renal failure, on continuous renal replacement therapy. PLAN Tracheostomy when the patient is stable and time permits. Dr. Dan will discuss with all attending physicians. Dictated by... Madina Higgins A.P.R.N. for Maury Dan M.D. TB/modl TD: 02/08/2017 03:22 JOB #: [id number] CONSULTATION REPORT Page 1 of 1 X Madina Higgins APRN X CONSULTATION REPORT
--- NOTE | ~2017-01-19 | TOC ---
Unit #: [id number] #: [id number] Patient: NADINE TAYLOR [id number] [address] [place], [place] [address] [id number] I MR#: [id number] NAME: NADINE TAYLOR ROOM: [facility] Age: 46 Sex: M Admission Date: 01/19/2017 : 1970 Attending Physician: Wali Romano M.D. Primary Care Physician: No Primary Care Physician TRANSFER OF CARE SUMMARY DIAGNOSIS ON ADMISSION Acute respiratory failure. CURRENT DIAGNOSES 1. Acute respiratory failure. The patient is on a ventilator. 2. ARDS. 3. Pneumonia. 4. Cardiomyopathy with ejection fraction of 10%. 5. Acute kidney injury requiring hemodialysis. 6. Nonsustained ventricular tachycardia. 7. History of IV drug abuse. 8. Sepsis. 9. Leukocytosis. 10. Diarrhea. CONSULTANTS (1) and Liz in pulmonary consultation. Dr. Stewart in ID consultation. Dr. Diaz in cardiology consultation. Dr. Celis in renal consultation. HOSPITAL COURSE The patient is a 46-year-old who was admitted to the hospital with acute respiratory failure. Details are as per admission history and physical. Acute respiratory failure: The patient was intubated. He is still ventilator dependent. He had sepsis. Dr. Hill is following the patient. Sepsis with fever: The patient continued to have high-grade fever despite being on multiple antibiotics. His workup has essentially been negative with blood cultures not showing any growth. Hence, stool for c-diff times two negative. Dr. Stewart is following the patient. The patient is off vasopressors now and his white blood cell count has tremendously decreased from 50,000 to 20,000. Acute renal failure. The patient is hemodialysis dependent and requires CRRT. While here the blood pressure was low. Dr. Celis is following the patient. Cardiomyopathy: The patient's ejection fraction was 10%. Dr. Diaz has seen the patient in consultation. The patient required dobutamine drip. Unit #: [id number] #: [id number] Patient: NADINE TAYLOR History of IV drug abuse. The patient has a history of heroin drug use. Further hospital course will be dictated by my partner. PLAN The plan has been discussed in detail with the patient's sisters, including Jessy and Sybil, who are aware of the poor prognosis. Dictated by... Anne Mercado TD: 01/31/2017 15:44 JOB #: [id number] TRANSFER OF CARE SUMMARY Page 1 of 1 X Wali Romano MD X TRANSFER OF CARE SUMMARY
--- NOTE | ~2017-01-19 | CT4 ---
[facility] A Service of [facility] & [facility] RADIOLOGY TEXT RESULTS PATIENT: NADINE TAYLOR LOCATION: CICCU2 CICCU210 : [birth year] UNIT #: [id number] AGE: [address]: Wali Romano MD SEX: M ORDER DR: [id number] [facility] [address] [place], [place] [address] [id number] I MR#: [id number] Acc #: [id number] NAME: NADINE TAYLOR : 1970 SEX: M STUDY DATE/TIME: 01/26/2017 16:16 UNIT: [facility]2 [facility] STUDY DESCRIPTION: CT Abd and Pelv Wo Cont Attending Physician: Wali Romano M.D. Ordering Physician: Yasiry Not Listed Primary Care Physician: No Primary Care Physician MEDICAL IMAGING REPORT This report is preliminary unless electronic signature is present EXAM CT abdomen and pelvis without contrast INDICATIONS Leukocytosis, fever, weakness since 01/17/[address] of the abdomen and pelvis. This CT exam was performed with one or more of the following radiation dose reduction techniques: automatic exposure control, adjustment of mA and/or kV according to patient size, and iterative reconstruction. COMPARISON None FINDINGS Refer to the separately dictated chest CT for thoracic findings. ABDOMEN WITHOUT CONTRAST: No definite liver or splenic lesion. The kidneys, adrenal glands, pancreas, gallbladder have an unremarkable unenhanced appearance. The colon is fluid-filled. Bowel loops are nondilated. Appendix is normal. PELVIS WITHOUT CONTRAST: Rectal tube in place. Abdullahi catheter decompresses the bladder. No aggressive-appearing bone lesion. IMPRESSION 1. The colon is fluid-filled suggesting diarrhea. Otherwise, bowel loops are nondilated. No other acute finding is seen. 2. Refer to the separately dictated chest CT for thoracic findings. Dictated by... Mukul Kaplan M.D. [facility] A Service of [facility] & [facility] RADIOLOGY TEXT RESULTS PATIENT: NADINE TAYLOR LOCATION: CICCU2 CICCU210 : [birth year] UNIT #: [id number] AGE: [address]: Wali Romano MD SEX: M ORDER DR: THIS IS AN ELECTRONICALLY VERIFIED REPORT Mukul Kaplan M.D. at 01/27/2017 10:09 AM Ana Maria TD: 01/26/2017 17:48 JOB #: [id number] MEDICAL IMAGING REPORT Page 1 of 1 COPY
--- NOTE | ~2017-01-19 | CO ---
Unit #: [id number] #: [id number] Patient: NADINE TAYLOR [id number] [address] [place], [place] [address] [id number] I MR#: [id number] NAME: NADINE TAYLOR ROOM: [facility] Age: 46 Sex: M Admission Date: 01/19/2017 : 1970 Attending Physician: Brady Hernandez M.D. Consultation Date: 02/07/2017 CONSULTATION REPORT REASON FOR CONSULTATION Assessment and placement of a PEG tube for enteral feeding. HISTORY OF PRESENT ILLNESS The patient is intubated and sedated and his sister was in the room and some of the history was obtained from his sister as well as from her nurse Jenny in the ICU. Briefly, the patient is a 46-year-old white gentleman, who has a history of polysubstance abuse that includes heroin and methamphetamine. The patient was admitted with generalized weakness and fatigue and acute respiratory failure and disorientation. He was intubated and has been intubated since after admission. PAST MEDICAL HISTORY He does have a past medical history of hypothyroidism as well as hyperlipidemia and hypertension. PAST SURGICAL HISTORY Included a left knee surgery. HOME MEDICATIONS Included medication for blood pressure, high cholesterol, and thyroid and a blood thinner. ALLERGIES His allergies are unknown. SOCIAL HISTORY The patient has not worked recently according to the sister. Does smoke as well as drink alcohol. FAMILY HISTORY None of colon, pancreatic cancer, or liver disease. REVIEW OF SYSTEMS Detailed review of organ systems is not possible due to the fact that the patient is intubated and sedated. PHYSICAL EXAMINATION GENERAL: He is intubated and sedated. VITAL SIGNS: Indicate a temperature of 97.8, pulse is 88 per minute and regular, respiratory rate is 24, blood pressure is 107/71. His recorded weight is 191 pounds. Baseline weight has been about 238 pounds. EXTREMITIES: The patient is not moving his right upper extremity, but is moving all the other three extremities on painful stimuli. Unit #: [id number] #: [id number] Patient: NADINE TAYLOR CARDIOVASCULAR: Reveals normal heart sounds. No murmurs on auscultation. LUNGS: Reveal normal breath sounds. Good air entry. ABDOMEN: Soft and nontender. Liver and spleen are not palpable. Bowel sounds normal. DIAGNOSTIC STUDIES LABORATORY RESULTS: Significant for a BUN and creatinine 75 and 2.9. The BUN and creatinine at presentation are as high as 197 and 7.2. Blood glucose today is 156 and has varied between 150-250. His CO2 is 21 and the patient is having metabolic acidosis. Potassium is 2.9. His white count is 16,000 with left shift, platelet count is normal, hemoglobin is 11.7. Tox screen is positive for methadone, opiates, and AMP. CLINICAL IMPRESSION I also reviewed his consultation with Neurology, renal physician, and ID and it seems the patient may have bacteremic. The patient has acute renal failure along with acute renal failure. The patient does have multiorgan failure and his neurologic status at best is tenuous. He is clearly at high surgical risk for any maneuver. If the patient is stable from hemodynamic standpoint, then enteral feeding and a PEG tube is a reasonable option in the intervening period until his recovery or stability. These issues were discussed with his sister, who was at the bedside, explaining them the pros and cons and the fact that the enteral feeding is more reliable source for calories intake. The procedure will be done in the next couple of days depending upon the patient's hemodynamic stability. Thank you very much for asking me to see this gentleman. I appreciate the consult. Dictated by... Anne Friend/cezar TD: 02/08/2017 11:42 JOB #: [id number] Jacqueline Woody M.D. CONSULTATION REPORT Page 1 of 1 X Alan Monahan MD X CONSULTATION REPORT
--- NOTE | ~2017-01-19 | CR72 ---
[facility] A Service of [facility] & [facility] RADIOLOGY TEXT RESULTS PATIENT: NADINE TAYLOR [facility] [birth year] UNIT #: [id number] AGE: [address]: Wali Romano MD SEX: M ORDER DR: [id number] [facility] [address] [facility]. [place], [place] [address] [id number] I MR#: [id number] Acc #: [id number] NAME: NADINE TAYLOR : 1970 SEX: M STUDY DATE/TIME: 01/19/2017 19:39 UNIT: [facility] ROOM: [id number] STUDY DESCRIPTION: CR Chest Single View Portable Attending Physician: Anna Grant M.D. Ordering Physician: Brte Veloz D.O. Primary Care Physician: Primary Care Physician No MEDICAL IMAGING REPORT This report is preliminary unless electronic signature is present EXAM Single view chest INDICATION Respiratory failure. FINDINGS Single portable AP view of the chest compared to 01/19/2017. Endotracheal tube has been positioned approximately 5 cm above the cyn. There is increasing density in the bilateral airspace opacities. This has an appearance most typical for diffuse interstitial edema. No pneumothorax. IMPRESSION 1. Endotracheal tube approximately 5 cm above the cyn. 2. Significant increase in bilateral airspace opacities. This probably represents diffuse pulmonary edema. Dictated by... Hardy Mortensen M.D. THIS IS AN ELECTRONICALLY VERIFIED REPORT Hardy Mortensen M.D. at 01/20/2017 1:17 PM THEA/jose luis TD: 01/19/2017 21:21 JOB #: [id number] MEDICAL IMAGING REPORT Page 1 of 1 COPY
--- NOTE | ~2017-01-19 | CR72 ---
[facility] A Service of [facility] & [facility] RADIOLOGY TEXT RESULTS PATIENT: NADINE TAYLOR LOCATION: [address] : [birth year] UNIT #: [id number] AGE: [address]: Brady Hernandez MD SEX: M ORDER DR: [id number] [facility] [address] [place], [place] [address] [id number] I MR#: [id number] Acc #: [id number] NAME: NADINE TAYLOR : 1970 SEX: M STUDY DATE/TIME: 02/10/2017 5:38 UNIT: [facility] ROOM: [facility] STUDY DESCRIPTION: CR Chest Single View Portable Attending Physician: Brady Hernandez M.D. Ordering Physician: Brennen Hill M.D. Primary Care Physician: Primary Care Physician No MEDICAL IMAGING REPORT This report is preliminary unless electronic signature is present EXAM Single view chest INDICATION Respiratory failure. Sepsis. FINDINGS Single portable AP view of the chest compared to 02/09/2017. Heart and mediastinal contours are unchanged. There is a trace amount of pneumoperitoneum under the right hemidiaphragm. Support lines and tubes are unchanged. There are some increased interstitial markings in both lungs. IMPRESSION No significant change. Dictated by... Hardy Mortensen M.D. THIS IS AN ELECTRONICALLY VERIFIED REPORT Hardy Mortensen M.D. at 02/11/2017 12:49 AM THEA/shahid TD: 02/10/2017 06:24 JOB #: [id number] MEDICAL IMAGING REPORT Page 1 of 1 COPY
[~2017-01-19 16:33] MED LIST: ULTRAM PO
[2017-01-19 17:57] LABS: BASOPHIL% 0.1 % (0-2.5); EOSINOPHIL% 0.1 % (0.0-7.0); HEMATOCRIT 31.8 % (38.0-50.0); HEMOGLOBIN 10.1 gm/dL (13.0-16.0); LYMPHOCYTE# 1.2 X10e3 (1.0-3.5); MEAN CELL VOLUME 82.9 FL (83-96); MEAN CORPUSCULAR HEMOGLOBIN 26.5 PG (28-34); MEAN CORPUSCULAR HGB CONC 31.9 g/dL (30-36); MEAN PLATELET VOLUME 8.5 FL (6.5-11.5); MONOCYTE# 0.4 X10e3 (0-1.0); MONOCYTE% 5.2 % (3.0-12.0); NEUTROPHIL# 6.4 X10e3 (1.5-7.1); NEUTROPHIL% 79.6 % (40-75); PLATELET COUNT 185 X10e3 (140-420); RED BLOOD COUNT 3.83 X10e (3.90-5.60); RED CELL DISTRIBUTION WIDTH 17.4 % (11.0-15.5); WHITE BLOOD COUNT 8.1 X10e3 (4.0-10.5)
[2017-01-19 18:02] LABS: DIFF IND NO
[2017-01-19 18:25] LABS: ALBUMIN SERUM 2.9 g/dL (3.5-5.0); BILIRUBIN, DIRECT 0.2 mg/dL (0.0-0.2); BILIRUBIN,INDIRECT 0.3 mg/dL (0.0-0.9); BILIRUBIN,TOTAL 0.5 mg/dL (0.2-2.0); CALCIUM SERUM 8.1 mg/dL (8.4-10.2); GLOM FILT RATE Estimated 38.3 mL/min (>60); POTASSIUM 3.3 mmol/L (3.5-5.1); PROTEIN TOTAL SERUM 7.4 g/dL (6.0-8.3)
[2017-01-19 18:26] LABS: PARTIAL THROMBOPLASTIN TIME 34.8 SECONDS (23.5-31.3); PROTHROMBIN TIME (PATIENT) 11.2 SECONDS (10.0-11.7)
[2017-01-19 19:27] LABS: POC - TROPONIN <0.05 ng/mL (<=0.05)
[2017-01-19 19:48] LABS: ARTERIAL BLD GAS O2 SATURATION 99.9 % (90.0-100.0); ARTERIAL BLOOD GAS HCO3 11.1 mmol/L; ARTERIAL BLOOD GAS MET HB 0.8 %sat (0.0-2.0); ARTERIAL BLOOD GAS PCO2 49.8 mmHg (35.0-45.0); ARTERIAL BLOOD GAS PO2 99.9 mmHg (80.0-100); ARTERIAL BLOOD GAS pH 7.367 (7.350-7.450)
[2017-01-19 19:49] LABS: ARTERIAL BLOOD GAS ART SITE RIGHT BRACHIAL; ARTERIAL BLOOD GAS DELIVERY VENT; ARTERIAL BLOOD GAS VENT MODE A/C; ARTERIAL DRAW? YES
[2017-01-19 20:29] LABS: POC - CKMB 26.6 ng/mL (0.0-7.9); POC - TROPONIN <0.05 ng/mL (<=0.05)
[2017-01-19 20:29] LABS: URINE SOURCE CLEAN CATCH
[2017-01-19 20:38] LABS: URINE APPEARANCE CLEAR; URINE BILIRUBIN NEG (NEG); URINE BLOOD NEG (NEG); URINE COLOR DK YELLOW; URINE GLUCOSE NEG (NEG); URINE KETONE NEG (NEG); URINE LEUKOCYTE ESTERASE NEG (NEG); URINE NITRATE NEG (NEG); URINE PH 5.5 (5-8); URINE PROTEIN 1+ (NEG); URINE SPECIFIC GRAVITY 1.024 (1.003-1.035)
[2017-01-19 20:44] LABS: CULTURE INDICATED? YES; URBCS1 AUWI 0-2 /[HPF] (0-2); URINE BACTERIA AUWI NEG (NEGATIVE); URINE SQUAMOUS EPITHELIAL CELL OCC /[HPF]
[2017-01-19 20:47] LABS: AMPHETAMINE POS (NEG); BARBITURATES NEG (NEG); BENZODIAZEPINES NEG (NEG); COCAINE NEG (NEG); MARIJUANA NEG (NEG); OPIATES POS (NEG); TRICYCLIC ANTIDEPRESSANTS NEG (NEG); U METHADONE POS (NEG)
[2017-01-20] MEDS ORDERED: LEVOTHYROXINE175 MCG PO (01:06)
[2017-01-20] MEDS ORDERED: MAXZIDE 37.5 M1 EACH PO (01:07)
[2017-01-20] MEDS ORDERED: ASPIRIN81 M2 PO (01:07)
[2017-01-20] MEDS ORDERED: LIPITOR80 MG PO (01:07)
[2017-01-20 03:49] LABS: BASOPHIL% 0.7 % (0-2.5); DIFF IND NO; EOSINOPHIL# 0.1 X10e3 (0-0.7); HEMATOCRIT 31.3 % (38.0-50.0); HEMOGLOBIN 10.2 gm/dL (13.0-16.0); LYMPHOCYTE% 19.7 % (17.0-45.0); MEAN CELL VOLUME 82.3 FL (83-96); MEAN CORPUSCULAR HEMOGLOBIN 26.8 PG (28-34); MEAN CORPUSCULAR HGB CONC 32.6 g/dL (30-36); MONOCYTE# 0.2 X10e3 (0-1.0); MONOCYTE% 4.5 % (3.0-12.0); NEUTROPHIL# 3.9 X10e3 (1.5-7.1); NEUTROPHIL% 74.1 % (40-75); PLATELET COUNT 185 X10e3 (140-420); RED BLOOD COUNT 3.81 X10e (3.90-5.60); RED CELL DISTRIBUTION WIDTH 17.6 % (11.0-15.5); WHITE BLOOD COUNT 5.3 X10e3 (4.0-10.5)
[2017-01-20 04:24] LABS: BUN/CREATININE RATIO 22.66; CALCIUM SERUM 7.9 mg/dL (8.4-10.2); CREATININE SERUM 1.5 mg/dL (0.6-1.4); GLOM FILT RATE Estimated 54.3 mL/min (>60); POTASSIUM 3.9 mmol/L (3.5-5.1)
[2017-01-20 04:26] LABS: ARTERIAL BLD GAS O2 SATURATION 94.6 % (90.0-100.0); ARTERIAL BLOOD GAS ALLEN TEST NORMAL; ARTERIAL BLOOD GAS ART SITE LEFT RADIAL; ARTERIAL BLOOD GAS CARBOXY HB 0.7 %sat (0.0-9.0); ARTERIAL BLOOD GAS DELIVERY VENT; ARTERIAL BLOOD GAS HCO3 29.3 mmol/L; ARTERIAL BLOOD GAS MET HB 0.8 %sat (0.0-2.0); ARTERIAL BLOOD GAS PO2 80.6 mmHg (80.0-100); ARTERIAL BLOOD GAS VENT MODE AC; ARTERIAL DRAW? YES
[2017-01-20 04:34] LABS: PROCALCITONIN 18.8 NG/ML
[2017-01-20 13:00] LABS: LEGIONELLA AG URINE NEG (NEG)
[2017-01-21 04:26] LABS: BASOPHIL# 0.1 X10e3 (0-0.3); BASOPHIL% 0.6 % (0-2.5); EOSINOPHIL# 0.1 X10e3 (0-0.7); EOSINOPHIL% 1.4 % (0.0-7.0); HEMOGLOBIN 9.5 gm/dL (13.0-16.0); LYMPHOCYTE# 1.3 X10e3 (1.0-3.5); LYMPHOCYTE% 14.7 % (17.0-45.0); MEAN CELL VOLUME 83.3 FL (83-96); MEAN CORPUSCULAR HEMOGLOBIN 27.2 PG (28-34); MEAN CORPUSCULAR HGB CONC 32.6 g/dL (30-36); MEAN PLATELET VOLUME 8.3 FL (6.5-11.5); MONOCYTE# 0.6 X10e3 (0-1.0); MONOCYTE% 7.4 % (3.0-12.0); NEUTROPHIL# 6.6 X10e3 (1.5-7.1); NEUTROPHIL% 75.9 % (40-75); PLATELET COUNT 205 X10e3 (140-420); RED BLOOD COUNT 3.48 X10e (3.90-5.60); RED CELL DISTRIBUTION WIDTH 17.2 % (11.0-15.5)
[2017-01-21 04:29] LABS: DIFF IND NO; WHITE BLOOD COUNT 8.7 X10e3 (4.0-10.5)
[2017-01-21 04:41] LABS: INR 1.1; PROTHROMBIN TIME (PATIENT) 11.4 SECONDS (10.0-11.7)
[2017-01-21 05:00] LABS: BLOOD UREA NITROGEN 43 mg/dL (9-23); BUN/CREATININE RATIO 20.47; CALCIUM SERUM 7.8 mg/dL (8.4-10.2); CARBON DIOXIDE 26 mmol/L (22-31); CHLORIDE 99 mmol/L (100-111); CHOLESTEROL 59 mg/dL (0-200); CREATININE SERUM 2.1 mg/dL (0.6-1.4); GLOM FILT RATE Estimated 36.1 mL/min (>60); GLUCOSE FASTING 174 mg/dL (70-110); HDL CHOLESTEROL 5 mg/dL (29-75); POTASSIUM 3.9 mmol/L (3.5-5.1); SODIUM 135 mmol/L (135-145)
[2017-01-21 05:06] LABS: ARTERIAL BLOOD GAS PCO2 56.2 mmHg (35.0-45.0)
[2017-01-21 05:07] LABS: ARTERIAL BLD GAS O2 SATURATION 99.9 % (90.0-100.0); ARTERIAL BLOOD GAS ALLEN TEST NORMAL; ARTERIAL BLOOD GAS ART SITE LEFT RADIAL; ARTERIAL BLOOD GAS CARBOXY HB 0.6 %sat (0.0-9.0); ARTERIAL BLOOD GAS DELIVERY VENT; ARTERIAL BLOOD GAS MET HB 1.4 %sat (0.0-2.0); ARTERIAL BLOOD GAS VENT MODE AC; ARTERIAL DRAW? YES
[2017-01-21 05:44] LABS: TRIGLYCERIDES 533 mg/dL (10-160)
[2017-01-22 05:17] LABS: ARTERIAL BLD GAS O2 SATURATION 97.5 % (90.0-100.0); ARTERIAL BLOOD GAS HCO3 24.7 mmol/L; ARTERIAL BLOOD GAS PCO2 45.8 mmHg (35.0-45.0); ARTERIAL BLOOD GAS PO2 88.8 mmHg (80.0-100); ARTERIAL BLOOD GAS pH 7.339 (7.350-7.450)
[2017-01-22 05:18] LABS: ARTERIAL BLOOD GAS ALLEN TEST NORMAL; ARTERIAL BLOOD GAS ART SITE RIGHT BRACHIAL; ARTERIAL BLOOD GAS CARBOXY HB 0.9 %sat (0.0-9.0); ARTERIAL BLOOD GAS DELIVERY VENT; ARTERIAL BLOOD GAS MET HB 1.3 %sat (0.0-2.0); ARTERIAL BLOOD GAS VENT MODE AC; ARTERIAL DRAW? YES
[2017-01-22 07:04] LABS: BASOPHIL# 0.1 X10e3 (0-0.3); BASOPHIL% 0.7 % (0-2.5); EOSINOPHIL# 0.2 X10e3 (0-0.7); EOSINOPHIL% 2.4 % (0.0-7.0); HEMATOCRIT 26.1 % (38.0-50.0); HEMOGLOBIN 8.5 gm/dL (13.0-16.0); LYMPHOCYTE# 1.1 X10e3 (1.0-3.5); LYMPHOCYTE% 13.3 % (17.0-45.0); MEAN CELL VOLUME 82.5 FL (83-96); MEAN CORPUSCULAR HEMOGLOBIN 26.9 PG (28-34); MEAN CORPUSCULAR HGB CONC 32.6 g/dL (30-36); MEAN PLATELET VOLUME 8.3 FL (6.5-11.5); MONOCYTE# 0.7 X10e3 (0-1.0); MONOCYTE% 8.8 % (3.0-12.0); NEUTROPHIL# 6.1 X10e3 (1.5-7.1); NEUTROPHIL% 74.8 % (40-75); PLATELET COUNT 220 X10e3 (140-420); RED BLOOD COUNT 3.16 X10e (3.90-5.60); RED CELL DISTRIBUTION WIDTH 17.7 % (11.0-15.5); WHITE BLOOD COUNT 8.2 X10e3 (4.0-10.5)
[2017-01-22 07:05] LABS: DIFF IND YES
[2017-01-22 07:36] LABS: PROTHROMBIN TIME (PATIENT) 11.1 SECONDS (10.0-11.7)
[2017-01-22 07:45] LABS: PLATELET ESTIMATE NORMAL (NORMAL); RBC NORMAL YES
[2017-01-22 07:46] LABS: ANISOCYTOSIS SL; MICROCYTOSIS SL; OVALOCYTES PRESENT; POIKILOCYTOSIS SL; TEAR DROP CELLS PRESENT
[2017-01-22 16:52] LABS: BUN/CREATININE RATIO 14.25; CREATININE SERUM 4.7 mg/dL (0.6-1.4)
[2017-01-22 16:53] LABS: GLOM FILT RATE Estimated 13.6 mL/min (>60); POTASSIUM 3.5 mmol/L (3.5-5.1)
[2017-01-22 16:54] LABS: CALCIUM SERUM 7.7 mg/dL (8.4-10.2)
[2017-01-22 16:55] LABS: PROTEIN TOTAL SERUM 6.8 g/dL (6.0-8.3)
[2017-01-22 16:56] LABS: ALBUMIN SERUM 2.4 g/dL (3.5-5.0); BILIRUBIN,TOTAL 0.6 mg/dL (0.2-2.0)
[2017-01-23 04:32] LABS: BASOPHIL% 0.3 % (0-2.5); DIFF IND NO; EOSINOPHIL# 0.2 X10e3 (0-0.7); EOSINOPHIL% 1.9 % (0.0-7.0); HEMATOCRIT 25.7 % (38.0-50.0); HEMOGLOBIN 8.4 gm/dL (13.0-16.0); LYMPHOCYTE% 10.4 % (17.0-45.0); MEAN CELL VOLUME 81.5 FL (83-96); MEAN CORPUSCULAR HEMOGLOBIN 26.5 PG (28-34); MEAN CORPUSCULAR HGB CONC 32.5 g/dL (30-36); MEAN PLATELET VOLUME 7.7 FL (6.5-11.5); MONOCYTE% 10.4 % (3.0-12.0); NEUTROPHIL# 7.5 X10e3 (1.5-7.1); PLATELET COUNT 252 X10e3 (140-420); RED BLOOD COUNT 3.16 X10e (3.90-5.60); RED CELL DISTRIBUTION WIDTH 17.9 % (11.0-15.5); WHITE BLOOD COUNT 9.8 X10e3 (4.0-10.5)
[2017-01-23 05:09] LABS: ARTERIAL BLD GAS O2 SATURATION 99.2 % (90.0-100.0); ARTERIAL BLOOD GAS CARBOXY HB 0.7 %sat (0.0-9.0); ARTERIAL BLOOD GAS HCO3 21.1 mmol/L; ARTERIAL BLOOD GAS MET HB 1.4 %sat (0.0-2.0); ARTERIAL BLOOD GAS PCO2 43.6 mmHg (35.0-45.0); ARTERIAL BLOOD GAS pH 7.293 (7.350-7.450)
[2017-01-23 05:10] LABS: ARTERIAL BLOOD GAS ALLEN TEST NORMAL; ARTERIAL BLOOD GAS ART SITE LEFT RADIAL; ARTERIAL BLOOD GAS DELIVERY VENT; ARTERIAL BLOOD GAS VENT MODE AC; ARTERIAL DRAW? YES
[2017-01-23 06:47] LABS: ALBUMIN SERUM 2.1 g/dL (3.5-5.0); BILIRUBIN,TOTAL 1.4 mg/dL (0.2-2.0); BUN/CREATININE RATIO 14.06; CALCIUM SERUM 7.9 mg/dL (8.4-10.2); CREATININE SERUM 6.4 mg/dL (0.6-1.4); GLOM FILT RATE Estimated 9.4 mL/min (>60); MAGNESIUM 3.4 mg/dL (1.6-3.0)
[2017-01-23 06:51] LABS: PHOSPHOROUS 9.1 mg/dL (2.5-4.6)
[2017-01-23 19:53] LABS: CALCIUM SERUM 7.9 mg/dL (8.4-10.2); GLOM FILT RATE Estimated 16.6 mL/min (>60); MAGNESIUM 2.6 mg/dL (1.6-3.0); PHOSPHOROUS 6.2 mg/dL (2.5-4.6)
[2017-01-24 04:35] LABS: BASOPHIL# 0.1 X10e3 (0-0.3); BASOPHIL% 0.6 % (0-2.5); EOSINOPHIL# 0.4 X10e3 (0-0.7); EOSINOPHIL% 4.1 % (0.0-7.0); HEMATOCRIT 24.4 % (38.0-50.0); HEMOGLOBIN 8.3 gm/dL (13.0-16.0); LYMPHOCYTE# 0.8 X10e3 (1.0-3.5); LYMPHOCYTE% 8.4 % (17.0-45.0); MEAN CELL VOLUME 81.5 FL (83-96); MEAN CORPUSCULAR HEMOGLOBIN 27.7 PG (28-34); MEAN PLATELET VOLUME 7.3 FL (6.5-11.5); MONOCYTE# 0.9 X10e3 (0-1.0); MONOCYTE% 9.2 % (3.0-12.0); NEUTROPHIL# 7.5 X10e3 (1.5-7.1); NEUTROPHIL% 77.7 % (40-75); PLATELET COUNT 194 X10e3 (140-420); RED CELL DISTRIBUTION WIDTH 17.8 % (11.0-15.5); WHITE BLOOD COUNT 9.6 X10e3 (4.0-10.5)
[2017-01-24 04:36] LABS: DIFF IND NO
[2017-01-24 04:44] LABS: INR 1.1; PARTIAL THROMBOPLASTIN TIME 27.5 SECONDS (23.5-31.3); PROTHROMBIN TIME (PATIENT) 11.6 SECONDS (10.0-11.7)
[2017-01-24 05:00] LABS: ARTERIAL BLD GAS O2 SATURATION 99.2 % (90.0-100.0); ARTERIAL BLOOD GAS ALLEN TEST NORMAL; ARTERIAL BLOOD GAS ART SITE LEFT RADIAL; ARTERIAL BLOOD GAS CARBOXY HB 0.7 %sat (0.0-9.0); ARTERIAL BLOOD GAS DELIVERY VENT; ARTERIAL BLOOD GAS HCO3 25.6 mmol/L; ARTERIAL BLOOD GAS MET HB 1.1 %sat (0.0-2.0); ARTERIAL BLOOD GAS PCO2 42.6 mmHg (35.0-45.0); ARTERIAL BLOOD GAS VENT MODE AC; ARTERIAL BLOOD GAS pH 7.387 (7.350-7.450); ARTERIAL DRAW? YES
[2017-01-24 05:02] LABS: ALBUMIN SERUM 2.3 g/dL (3.5-5.0); BUN/CREATININE RATIO 12.5; CALCIUM SERUM 7.9 mg/dL (8.4-10.2); CREATININE SERUM 2.4 mg/dL (0.6-1.4); GLOM FILT RATE Estimated 30.8 mL/min (>60); MAGNESIUM 2.3 mg/dL (1.6-3.0); PHOSPHOROUS 4.4 mg/dL (2.5-4.6); POTASSIUM 3.9 mmol/L (3.5-5.1); PROTEIN TOTAL SERUM 7.1 g/dL (6.0-8.3)
[2017-01-24 13:48] LABS: BUN/CREATININE RATIO 13.57; CALCIUM SERUM 8.4 mg/dL (8.4-10.2); CREATININE SERUM 1.4 mg/dL (0.6-1.4); MAGNESIUM 2.2 mg/dL (1.6-3.0); PHOSPHOROUS 2.1 mg/dL (2.5-4.6); POTASSIUM 4.5 mmol/L (3.5-5.1)
[2017-01-24 22:14] LABS: BUN/CREATININE RATIO 16.15; CALCIUM SERUM 8.5 mg/dL (8.4-10.2); CREATININE SERUM 1.3 mg/dL (0.6-1.4); GLOM FILT RATE Estimated 64.5 mL/min (>60); MAGNESIUM 2.2 mg/dL (1.6-3.0); PHOSPHOROUS 1.8 mg/dL (2.5-4.6); POTASSIUM 4.2 mmol/L (3.5-5.1)
[2017-01-25 04:53] LABS: ARTERIAL BLD GAS O2 SATURATION 98.8 % (90.0-100.0); ARTERIAL BLOOD GAS ALLEN TEST NORMAL; ARTERIAL BLOOD GAS ART SITE RIGHT RADIAL; ARTERIAL BLOOD GAS CARBOXY HB 0.8 %sat (0.0-9.0); ARTERIAL BLOOD GAS HCO3 24.9 mmol/L; ARTERIAL BLOOD GAS MET HB 1.1 %sat (0.0-2.0); ARTERIAL BLOOD GAS PCO2 41.2 mmHg (35.0-45.0); ARTERIAL DRAW? YES
[2017-01-25 04:54] LABS: ARTERIAL BLOOD GAS DELIVERY VENT; ARTERIAL BLOOD GAS VENT MODE AC
[2017-01-25 06:00] LABS: INR 1.1; PARTIAL THROMBOPLASTIN TIME 24.6 SECONDS (23.5-31.3); PROTHROMBIN TIME (PATIENT) 11.7 SECONDS (10.0-11.7)
[2017-01-25 06:16] LABS: ALBUMIN SERUM 2.7 g/dL (3.5-5.0); BILIRUBIN,TOTAL 0.7 mg/dL (0.2-2.0); BUN/CREATININE RATIO 16.15; CALCIUM SERUM 8.6 mg/dL (8.4-10.2); CREATININE SERUM 1.3 mg/dL (0.6-1.4); GLOM FILT RATE Estimated 64.5 mL/min (>60); MAGNESIUM 2.3 mg/dL (1.6-3.0); PHOSPHOROUS 2.4 mg/dL (2.5-4.6); POTASSIUM 4.8 mmol/L (3.5-5.1); PROTEIN TOTAL SERUM 8.8 g/dL (6.0-8.3)
[2017-01-25 07:06] LABS: BASOPHIL# 0.2 X10e3 (0-0.3); BASOPHIL% 0.8 % (0-2.5); EOSINOPHIL# 0.7 X10e3 (0-0.7); HEMATOCRIT 33.2 % (38.0-50.0); LYMPHOCYTE# 1.9 X10e3 (1.0-3.5); LYMPHOCYTE% 8.3 % (17.0-45.0); MEAN CELL VOLUME 82.4 FL (83-96); MEAN CORPUSCULAR HEMOGLOBIN 26.7 PG (28-34); MEAN CORPUSCULAR HGB CONC 32.4 g/dL (30-36); MEAN PLATELET VOLUME 8.1 FL (6.5-11.5); MONOCYTE% 8.5 % (3.0-12.0); NEUTROPHIL# 18.6 X10e3 (1.5-7.1); NEUTROPHIL% 79.4 % (40-75); PLATELET COUNT 269 X10e3 (140-420); RED BLOOD COUNT 4.03 X10e (3.90-5.60); RED CELL DISTRIBUTION WIDTH 18.1 % (11.0-15.5)
[2017-01-25 07:12] LABS: WHITE BLOOD COUNT 23.4 X10e3 (4.0-10.5)
[2017-01-25 07:17] LABS: HEMOGLOBIN 10.8 gm/dL (13.0-16.0)
[2017-01-25 07:18] LABS: DIFF IND YES
[2017-01-25 08:28] LABS: PLATELET ESTIMATE NORMAL (NORMAL)
[2017-01-25 08:30] LABS: ANISOCYTOSIS MOD; MICROCYTOSIS SL; POIKILOCYTOSIS SL; POLYCHROMASIA SL
[2017-01-25 14:02] LABS: BUN/CREATININE RATIO 13.57; CALCIUM SERUM 8.9 mg/dL (8.4-10.2); CREATININE SERUM 1.4 mg/dL (0.6-1.4); MAGNESIUM 2.2 mg/dL (1.6-3.0); PHOSPHOROUS 3.2 mg/dL (2.5-4.6); POTASSIUM 5.2 mmol/L (3.5-5.1)
[2017-01-25 17:17] LABS: HEP C AB (HEPPAN) Reactive (Nonreactive); HEPATITIS B SURFACE ANTIBODY <5 mIU/mL (>=10)
[2017-01-25 21:29] LABS: BUN/CREATININE RATIO 14.28; CALCIUM SERUM 8.6 mg/dL (8.4-10.2); CREATININE SERUM 1.4 mg/dL (0.6-1.4); MAGNESIUM 2.2 mg/dL (1.6-3.0); PHOSPHOROUS 3.5 mg/dL (2.5-4.6); POTASSIUM 4.2 mmol/L (3.5-5.1)
[2017-01-26 03:37] LABS: ARTERIAL BLD GAS O2 SATURATION 98.4 % (90.0-100.0); ARTERIAL BLOOD GAS ALLEN TEST NORMAL; ARTERIAL BLOOD GAS ART SITE RIGHT RADIAL; ARTERIAL BLOOD GAS CARBOXY HB 0.6 %sat (0.0-9.0); ARTERIAL BLOOD GAS DELIVERY VENT; ARTERIAL BLOOD GAS HCO3 26.4 mmol/L; ARTERIAL BLOOD GAS MET HB 1.1 %sat (0.0-2.0); ARTERIAL BLOOD GAS PCO2 56.4 mmHg (35.0-45.0); ARTERIAL BLOOD GAS VENT MODE PRVC; ARTERIAL BLOOD GAS pH 7.279 (7.350-7.450); ARTERIAL DRAW? YES
[2017-01-26 05:26] LABS: HEMATOCRIT 34.6 % (38.0-50.0); HEMOGLOBIN 11.1 gm/dL (13.0-16.0); MEAN CELL VOLUME 83.9 FL (83-96); MEAN CORPUSCULAR HGB CONC 32.1 g/dL (30-36); MEAN PLATELET VOLUME 8.5 FL (6.5-11.5); RED BLOOD COUNT 4.12 X10e (3.90-5.60); RED CELL DISTRIBUTION WIDTH 17.9 % (11.0-15.5); WHITE BLOOD COUNT 32.1 X10e3 (4.0-10.5)
[2017-01-26 06:04] LABS: ALBUMIN SERUM 2.8 g/dL (3.5-5.0); BILIRUBIN,TOTAL 0.9 mg/dL (0.2-2.0); BUN/CREATININE RATIO 12.85; CALCIUM SERUM 8.9 mg/dL (8.4-10.2); CREATININE SERUM 1.4 mg/dL (0.6-1.4); MAGNESIUM 2.2 mg/dL (1.6-3.0); PHOSPHOROUS 3.5 mg/dL (2.5-4.6); POTASSIUM 4.6 mmol/L (3.5-5.1); PROTEIN TOTAL SERUM 8.7 g/dL (6.0-8.3)
[2017-01-26 14:43] LABS: BASOPHIL# 0.4 X10e3 (0-0.3); BASOPHIL% 1.2 % (0-2.5); EOSINOPHIL# 0.7 X10e3 (0-0.7); HEMATOCRIT 32.1 % (38.0-50.0); HEMOGLOBIN 10.4 gm/dL (13.0-16.0); LYMPHOCYTE# 3.8 X10e3 (1.0-3.5); LYMPHOCYTE% 10.4 % (17.0-45.0); MEAN CELL VOLUME 84.4 FL (83-96); MEAN CORPUSCULAR HEMOGLOBIN 27.3 PG (28-34); MEAN CORPUSCULAR HGB CONC 32.4 g/dL (30-36); MEAN PLATELET VOLUME 8.6 FL (6.5-11.5); MONOCYTE# 3.3 X10e3 (0-1.0); MONOCYTE% 8.9 % (3.0-12.0); NEUTROPHIL# 28.7 X10e3 (1.5-7.1); NEUTROPHIL% 77.5 % (40-75); PLATELET COUNT 231 X10e3 (140-420)
[2017-01-26 14:44] LABS: DIFF IND YES
[2017-01-26 15:03] LABS: ALBUMIN SERUM 2.8 g/dL (3.5-5.0); BILIRUBIN,TOTAL 0.6 mg/dL (0.2-2.0); BUN/CREATININE RATIO 14.7; CALCIUM SERUM 8.5 mg/dL (8.4-10.2); CREATININE SERUM 1.7 mg/dL (0.6-1.4); GLOM FILT RATE Estimated 46.7 mL/min (>60); MAGNESIUM 2.3 mg/dL (1.6-3.0); PHOSPHOROUS 3.6 mg/dL (2.5-4.6); POTASSIUM 4.2 mmol/L (3.5-5.1); PROTEIN TOTAL SERUM 8.6 g/dL (6.0-8.3)
[2017-01-26 15:19] LABS: PLATELET ESTIMATE NORMAL (NORMAL)
[2017-01-26 22:25] LABS: BASOPHIL# 0.2 X10e3 (0-0.3); BASOPHIL% 0.6 % (0-2.5); EOSINOPHIL# 0.7 X10e3 (0-0.7); EOSINOPHIL% 1.9 % (0.0-7.0); HEMATOCRIT 30.6 % (38.0-50.0); LYMPHOCYTE% 10.9 % (17.0-45.0); MEAN CELL VOLUME 84.1 FL (83-96); MEAN CORPUSCULAR HEMOGLOBIN 27.4 PG (28-34); MEAN CORPUSCULAR HGB CONC 32.6 g/dL (30-36); MEAN PLATELET VOLUME 9.1 FL (6.5-11.5); MONOCYTE# 3.5 X10e3 (0-1.0); MONOCYTE% 9.6 % (3.0-12.0); NEUTROPHIL# 27.9 X10e3 (1.5-7.1); PLATELET COUNT 205 X10e3 (140-420); RED BLOOD COUNT 3.63 X10e (3.90-5.60); RED CELL DISTRIBUTION WIDTH 17.8 % (11.0-15.5); WHITE BLOOD COUNT 36.2 X10e3 (4.0-10.5)
[2017-01-26 22:26] LABS: DIFF IND NO
[2017-01-26 22:52] LABS: ALBUMIN SERUM 2.6 g/dL (3.5-5.0); BILIRUBIN,TOTAL 0.5 mg/dL (0.2-2.0); BUN/CREATININE RATIO 14.7; CALCIUM SERUM 8.7 mg/dL (8.4-10.2); CREATININE SERUM 1.7 mg/dL (0.6-1.4); GLOM FILT RATE Estimated 46.7 mL/min (>60); MAGNESIUM 2.1 mg/dL (1.6-3.0); PHOSPHOROUS 2.4 mg/dL (2.5-4.6); POTASSIUM 3.8 mmol/L (3.5-5.1); PROTEIN TOTAL SERUM 7.9 g/dL (6.0-8.3)
[2017-01-27 04:04] LABS: ARTERIAL BLD GAS O2 SATURATION 98.8 % (90.0-100.0); ARTERIAL BLOOD GAS ALLEN TEST NORMAL; ARTERIAL BLOOD GAS ART SITE RIGHT RADIAL; ARTERIAL BLOOD GAS CARBOXY HB 0.7 %sat (0.0-9.0); ARTERIAL BLOOD GAS DELIVERY VENT; ARTERIAL BLOOD GAS HCO3 27.7 mmol/L; ARTERIAL BLOOD GAS MET HB 1.3 %sat (0.0-2.0); ARTERIAL BLOOD GAS PCO2 57.9 mmHg (35.0-45.0); ARTERIAL BLOOD GAS VENT MODE PRVC; ARTERIAL BLOOD GAS pH 7.289 (7.350-7.450); ARTERIAL DRAW? YES
[2017-01-27 06:06] LABS: BASOPHIL# 0.5 X10e3 (0-0.3); BASOPHIL% 1.3 % (0-2.5); DIFF IND NO; EOSINOPHIL# 1.2 X10e3 (0-0.7); EOSINOPHIL% 3.3 % (0.0-7.0); HEMATOCRIT 30.3 % (38.0-50.0); HEMOGLOBIN 9.9 gm/dL (13.0-16.0); LYMPHOCYTE# 3.6 X10e3 (1.0-3.5); MEAN CELL VOLUME 82.3 FL (83-96); MEAN CORPUSCULAR HGB CONC 32.8 g/dL (30-36); MEAN PLATELET VOLUME 8.9 FL (6.5-11.5); MONOCYTE# 3.4 X10e3 (0-1.0); MONOCYTE% 9.5 % (3.0-12.0); NEUTROPHIL# 27.1 X10e3 (1.5-7.1); NEUTROPHIL% 75.9 % (40-75); PLATELET COUNT 184 X10e3 (140-420); RED BLOOD COUNT 3.69 X10e (3.90-5.60); RED CELL DISTRIBUTION WIDTH 17.8 % (11.0-15.5); WHITE BLOOD COUNT 35.7 X10e3 (4.0-10.5)
[2017-01-27 06:34] LABS: ALBUMIN SERUM 2.5 g/dL (3.5-5.0); BILIRUBIN,TOTAL 0.7 mg/dL (0.2-2.0); BUN/CREATININE RATIO 11.33; CALCIUM SERUM 8.8 mg/dL (8.4-10.2); CREATININE SERUM 1.5 mg/dL (0.6-1.4); GLOM FILT RATE Estimated 54.3 mL/min (>60); MAGNESIUM 2.1 mg/dL (1.6-3.0); PHOSPHOROUS 3.2 mg/dL (2.5-4.6); POTASSIUM 3.8 mmol/L (3.5-5.1)
[2017-01-27 15:43] LABS: BUN/CREATININE RATIO 14.28; CALCIUM SERUM 8.8 mg/dL (8.4-10.2); CREATININE SERUM 1.4 mg/dL (0.6-1.4); MAGNESIUM 2.1 mg/dL (1.6-3.0); PHOSPHOROUS 2.7 mg/dL (2.5-4.6); POTASSIUM 3.7 mmol/L (3.5-5.1)
[2017-01-27 22:28] LABS: BASOPHIL# 0.5 X10e3 (0-0.3); BASOPHIL% 1.1 % (0-2.5); EOSINOPHIL# 0.9 X10e3 (0-0.7); EOSINOPHIL% 1.8 % (0.0-7.0); HEMATOCRIT 33.5 % (38.0-50.0); HEMOGLOBIN 10.8 gm/dL (13.0-16.0); LYMPHOCYTE# 3.8 X10e3 (1.0-3.5); LYMPHOCYTE% 7.8 % (17.0-45.0); MEAN CELL VOLUME 82.8 FL (83-96); MEAN CORPUSCULAR HEMOGLOBIN 26.7 PG (28-34); MEAN CORPUSCULAR HGB CONC 32.2 g/dL (30-36); MEAN PLATELET VOLUME 9.4 FL (6.5-11.5); MONOCYTE# 3.8 X10e3 (0-1.0); MONOCYTE% 7.9 % (3.0-12.0); NEUTROPHIL# 39.4 X10e3 (1.5-7.1); NEUTROPHIL% 81.4 % (40-75); PLATELET COUNT 216 X10e3 (140-420); RED BLOOD COUNT 4.05 X10e (3.90-5.60); RED CELL DISTRIBUTION WIDTH 17.8 % (11.0-15.5); WHITE BLOOD COUNT 48.4 X10e3 (4.0-10.5)
[2017-01-27 22:29] LABS: DIFF IND YES
[2017-01-27 22:44] LABS: BUN/CREATININE RATIO 13.84; CALCIUM SERUM 8.5 mg/dL (8.4-10.2); CREATININE SERUM 1.3 mg/dL (0.6-1.4); GLOM FILT RATE Estimated 64.5 mL/min (>60); MAGNESIUM 2.1 mg/dL (1.6-3.0); PHOSPHOROUS 2.7 mg/dL (2.5-4.6); POTASSIUM 4.4 mmol/L (3.5-5.1)
[2017-01-27 23:01] LABS: NUCLEATED RED BLOOD CELL 1 /100 (0)
[2017-01-27 23:02] LABS: ANISOCYTOSIS MOD; MICROCYTOSIS SL; SMUDGE CELLS 17 /100
[2017-01-27 23:03] LABS: HYPOCHROMIA SL; PLATELET ESTIMATE DECREASED (NORMAL); POLYCHROMASIA MOD
[2017-01-28 03:57] LABS: ARTERIAL BLD GAS O2 SATURATION 96.2 % (90.0-100.0); ARTERIAL BLOOD GAS CARBOXY HB 0.5 %sat (0.0-9.0); ARTERIAL BLOOD GAS HCO3 24.7 mmol/L; ARTERIAL BLOOD GAS MET HB 0.8 %sat (0.0-2.0); ARTERIAL BLOOD GAS PCO2 44.2 mmHg (35.0-45.0); ARTERIAL BLOOD GAS pH 7.355 (7.350-7.450)
[2017-01-28 03:59] LABS: ARTERIAL BLOOD GAS ALLEN TEST NORMAL; ARTERIAL BLOOD GAS ART SITE RIGHT RADIAL; ARTERIAL BLOOD GAS DELIVERY VENT; ARTERIAL BLOOD GAS VENT MODE PRVC; ARTERIAL DRAW? YES
[2017-01-28 06:09] LABS: BASOPHIL# 0.5 X10e3 (0-0.3); BASOPHIL% 0.9 % (0-2.5); EOSINOPHIL# 0.8 X10e3 (0-0.7); EOSINOPHIL% 1.4 % (0.0-7.0); HEMATOCRIT 37.1 % (38.0-50.0); HEMOGLOBIN 11.9 gm/dL (13.0-16.0); LYMPHOCYTE# 5.8 X10e3 (1.0-3.5); LYMPHOCYTE% 10.6 % (17.0-45.0); MEAN CELL VOLUME 84.3 FL (83-96); MEAN CORPUSCULAR HEMOGLOBIN 27.2 PG (28-34); MEAN CORPUSCULAR HGB CONC 32.2 g/dL (30-36); MEAN PLATELET VOLUME 10.1 FL (6.5-11.5); MONOCYTE# 3.5 X10e3 (0-1.0); MONOCYTE% 6.5 % (3.0-12.0); NEUTROPHIL# 43.8 X10e3 (1.5-7.1); NEUTROPHIL% 80.6 % (40-75); PLATELET COUNT 270 X10e3 (140-420)
[2017-01-28 06:11] LABS: DIFF IND YES; WHITE BLOOD COUNT 54.3 X10e3 (4.0-10.5)
[2017-01-28 06:26] LABS: ALBUMIN SERUM 3.3 g/dL (3.5-5.0); BILIRUBIN,TOTAL 0.7 mg/dL (0.2-2.0); BUN/CREATININE RATIO 15.83; CREATININE SERUM 1.2 mg/dL (0.6-1.4); GLOM FILT RATE Estimated 71.1 mL/min (>60); MAGNESIUM 2.3 mg/dL (1.6-3.0); PHOSPHOROUS 3.4 mg/dL (2.5-4.6); POTASSIUM 4.9 mmol/L (3.5-5.1); PROTEIN TOTAL SERUM 10.4 g/dL (6.0-8.3)
[2017-01-28 07:15] LABS: NUCLEATED RED BLOOD CELL 2 /100 (0)
[2017-01-28 07:16] LABS: ANISOCYTOSIS SL; MICROCYTOSIS SL; SMUDGE CELLS 13 /100
[2017-01-28 07:17] LABS: PLATELET ESTIMATE NORMAL (NORMAL); POLYCHROMASIA SL
[2017-01-28 15:04] LABS: CALCIUM SERUM 8.7 mg/dL (8.4-10.2); CREATININE SERUM 1.1 mg/dL (0.6-1.4); PHOSPHOROUS 3.4 mg/dL (2.5-4.6); POTASSIUM 4.5 mmol/L (3.5-5.1)
[2017-01-28 18:46] LABS: ARTERIAL BLD GAS O2 SATURATION 91.5 % (90.0-100.0); ARTERIAL BLOOD GAS CARBOXY HB 0.9 %sat (0.0-9.0); ARTERIAL BLOOD GAS HCO3 23.5 mmol/L; ARTERIAL BLOOD GAS MET HB 0.9 %sat (0.0-2.0); ARTERIAL BLOOD GAS PCO2 47.5 mmHg (35.0-45.0); ARTERIAL BLOOD GAS pH 7.303 (7.350-7.450)
[2017-01-28 18:47] LABS: ARTERIAL BLOOD GAS ART SITE RIGHT BRACHIAL; ARTERIAL BLOOD GAS DELIVERY VENT; ARTERIAL BLOOD GAS PO2 75.1 mmHg (80.0-100); ARTERIAL BLOOD GAS VENT MODE PRVC; ARTERIAL DRAW? YES
[2017-01-29 04:13] LABS: ARTERIAL BLD GAS O2 SATURATION 92.7 % (90.0-100.0); ARTERIAL BLOOD GAS CARBOXY HB 0.8 %sat (0.0-9.0); ARTERIAL BLOOD GAS HCO3 21.6 mmol/L; ARTERIAL BLOOD GAS PCO2 46.5 mmHg (35.0-45.0); ARTERIAL BLOOD GAS pH 7.275 (7.350-7.450)
[2017-01-29 04:14] LABS: ARTERIAL BLOOD GAS ART SITE RIGHT BRACHIAL; ARTERIAL BLOOD GAS DELIVERY VENT; ARTERIAL BLOOD GAS VENT MODE PRVC; ARTERIAL DRAW? YES
[2017-01-29 05:57] LABS: BASOPHIL# 0.5 X10e3 (0-0.3); EOSINOPHIL# 0.7 X10e3 (0-0.7); EOSINOPHIL% 1.4 % (0.0-7.0); HEMATOCRIT 30.3 % (38.0-50.0); LYMPHOCYTE# 5.2 X10e3 (1.0-3.5); MEAN CELL VOLUME 85.9 FL (83-96); MEAN CORPUSCULAR HEMOGLOBIN 27.8 PG (28-34); MEAN CORPUSCULAR HGB CONC 32.4 g/dL (30-36); MEAN PLATELET VOLUME 9.9 FL (6.5-11.5); MONOCYTE# 3.2 X10e3 (0-1.0); MONOCYTE% 6.7 % (3.0-12.0); NEUTROPHIL# 38.2 X10e3 (1.5-7.1); NEUTROPHIL% 79.9 % (40-75); PLATELET COUNT 262 X10e3 (140-420); RED BLOOD COUNT 3.52 X10e (3.90-5.60); RED CELL DISTRIBUTION WIDTH 18.7 % (11.0-15.5); WHITE BLOOD COUNT 47.8 X10e3 (4.0-10.5)
[2017-01-29 05:58] LABS: HEMOGLOBIN 9.8 gm/dL (13.0-16.0)
[2017-01-29 05:59] LABS: DIFF IND NO
[2017-01-29 06:28] LABS: ALBUMIN SERUM 2.8 g/dL (3.5-5.0); ALKALINE PHOSPHATASE 113 U/L (32-92); ALT (SGPT) 73 U/L (10-40); AST (SGOT) 65 U/L (10-42); BLOOD UREA NITROGEN 69 mg/dL (9-23); CALCIUM SERUM 8.3 mg/dL (8.4-10.2); CARBON DIOXIDE 20 mmol/L (22-31); CHLORIDE 94 mmol/L (100-111); GLOM FILT RATE Estimated 23.5 mL/min (>60); GLUCOSE FASTING 304 mg/dL (70-110); MAGNESIUM 2.6 mg/dL (1.6-3.0); PHOSPHOROUS 5.1 mg/dL (2.5-4.6); POTASSIUM 4.7 mmol/L (3.5-5.1); PROTEIN TOTAL SERUM 7.7 g/dL (6.0-8.3); SODIUM 131 mmol/L (135-145)
[2017-01-29 06:33] LABS: BILIRUBIN,TOTAL <0.1 mg/dL (0.2-2.0)
[2017-01-29 11:52] LABS: ARTERIAL BLOOD GAS CARBOXY HB 0.8 %sat (0.0-9.0); ARTERIAL BLOOD GAS pH 7.286 (7.350-7.450)
[2017-01-29 11:55] LABS: ARTERIAL BLOOD GAS ART SITE RIGHT RADIAL; ARTERIAL BLOOD GAS DELIVERY VENT; ARTERIAL BLOOD GAS PO2 71.9 mmHg (80.0-100); ARTERIAL BLOOD GAS VENT MODE AC; ARTERIAL DRAW? YES
[2017-01-30 04:26] LABS: ARTERIAL BLD GAS O2 SATURATION 95.9 % (90.0-100.0); ARTERIAL BLOOD GAS HCO3 21.3 mmol/L; ARTERIAL BLOOD GAS MET HB 1.2 %sat (0.0-2.0); ARTERIAL BLOOD GAS PCO2 37.8 mmHg (35.0-45.0); ARTERIAL BLOOD GAS PO2 99.6 mmHg (80.0-100); ARTERIAL BLOOD GAS pH 7.359 (7.350-7.450)
[2017-01-30 04:35] LABS: ARTERIAL BLOOD GAS ALLEN TEST NORMAL; ARTERIAL BLOOD GAS ART SITE RIGHT RADIAL; ARTERIAL BLOOD GAS VENT MODE PRVC; ARTERIAL DRAW? YES
[2017-01-30 08:15] LABS: HEMATOCRIT 27.7 % (38.0-50.0); HEMOGLOBIN 8.7 gm/dL (13.0-16.0); MEAN CELL VOLUME 84.3 FL (83-96); MEAN CORPUSCULAR HEMOGLOBIN 26.6 PG (28-34); MEAN CORPUSCULAR HGB CONC 31.6 g/dL (30-36); MEAN PLATELET VOLUME 8.9 FL (6.5-11.5); RED BLOOD COUNT 3.28 X10e (3.90-5.60); RED CELL DISTRIBUTION WIDTH 18.4 % (11.0-15.5); WHITE BLOOD COUNT 33.3 X10e3 (4.0-10.5)
[2017-01-30 08:32] LABS: BUN/CREATININE RATIO 21.77; CALCIUM SERUM 9.1 mg/dL (8.4-10.2); CREATININE SERUM 4.5 mg/dL (0.6-1.4); GLOM FILT RATE Estimated 14.4 mL/min (>60); POTASSIUM 4.2 mmol/L (3.5-5.1)
[2017-01-31 04:31] LABS: ARTERIAL BLD GAS O2 SATURATION 96.1 % (90.0-100.0); ARTERIAL BLOOD GAS CARBOXY HB 0.7 %sat (0.0-9.0); ARTERIAL BLOOD GAS MET HB 0.7 %sat (0.0-2.0); ARTERIAL BLOOD GAS PCO2 38.5 mmHg (35.0-45.0); ARTERIAL BLOOD GAS pH 7.279 (7.350-7.450)
[2017-01-31 05:03] LABS: ARTERIAL BLOOD GAS ALLEN TEST NORMAL; ARTERIAL BLOOD GAS ART SITE RIGHT RADIAL; ARTERIAL BLOOD GAS VENT MODE PRVC; ARTERIAL DRAW? YES
[2017-01-31 05:45] LABS: CALCIUM SERUM 8.4 mg/dL (8.4-10.2); MAGNESIUM 2.9 mg/dL (1.6-3.0); POTASSIUM 4.2 mmol/L (3.5-5.1)
[2017-01-31 05:48] LABS: BUN/CREATININE RATIO 21.96; CREATININE SERUM 6.6 mg/dL (0.6-1.4)
[2017-01-31 07:03] LABS: BASOPHIL# 0.2 X10e3 (0-0.3); BASOPHIL% 1.1 % (0-2.5); EOSINOPHIL# 0.3 X10e3 (0-0.7); EOSINOPHIL% 1.5 % (0.0-7.0); HEMATOCRIT 25.3 % (38.0-50.0); HEMOGLOBIN 7.8 gm/dL (13.0-16.0); LYMPHOCYTE# 2.5 X10e3 (1.0-3.5); LYMPHOCYTE% 12.1 % (17.0-45.0); MEAN CELL VOLUME 86.5 FL (83-96); MEAN CORPUSCULAR HEMOGLOBIN 26.8 PG (28-34); MEAN CORPUSCULAR HGB CONC 30.9 g/dL (30-36); MEAN PLATELET VOLUME 9.1 FL (6.5-11.5); MONOCYTE# 1.5 X10e3 (0-1.0); MONOCYTE% 7.3 % (3.0-12.0); NEUTROPHIL# 16.2 X10e3 (1.5-7.1); PLATELET COUNT 209 X10e3 (140-420); RED BLOOD COUNT 2.93 X10e (3.90-5.60); RED CELL DISTRIBUTION WIDTH 18.9 % (11.0-15.5); WHITE BLOOD COUNT 20.8 X10e3 (4.0-10.5)
[2017-01-31 07:07] LABS: DIFF IND YES
[2017-01-31 08:17] LABS: PLATELET ESTIMATE NORMAL (NORMAL)
[2017-01-31 08:18] LABS: HYPOCHROMIA SL; MICROCYTOSIS SL; POLYCHROMASIA SL; SCHISTOCYTES PRESENT
[2017-02-01 03:54] LABS: ARTERIAL BLD GAS O2 SATURATION 97.2 % (90.0-100.0); ARTERIAL BLOOD GAS CARBOXY HB 0.8 %sat (0.0-9.0); ARTERIAL BLOOD GAS HCO3 17.2 mmol/L; ARTERIAL BLOOD GAS MET HB 1.1 %sat (0.0-2.0); ARTERIAL BLOOD GAS PCO2 31.9 mmHg (35.0-45.0); ARTERIAL BLOOD GAS pH 7.341 (7.350-7.450)
[2017-02-01 04:01] LABS: ARTERIAL BLOOD GAS ALLEN TEST NORMAL; ARTERIAL BLOOD GAS ART SITE RIGHT RADIAL; ARTERIAL BLOOD GAS DELIVERY VENT; ARTERIAL BLOOD GAS VENT MODE PRVC; ARTERIAL DRAW? YES
[2017-02-01 06:14] LABS: BASOPHIL# 0.1 X10e3 (0-0.3); BASOPHIL% 0.7 % (0-2.5); EOSINOPHIL# 0.3 X10e3 (0-0.7); EOSINOPHIL% 2.4 % (0.0-7.0); HEMATOCRIT 24.3 % (38.0-50.0); HEMOGLOBIN 7.5 gm/dL (13.0-16.0); LYMPHOCYTE# 1.2 X10e3 (1.0-3.5); LYMPHOCYTE% 8.9 % (17.0-45.0); MEAN CELL VOLUME 87.2 FL (83-96); MEAN CORPUSCULAR HEMOGLOBIN 27.1 PG (28-34); MEAN PLATELET VOLUME 9.4 FL (6.5-11.5); MONOCYTE# 1.2 X10e3 (0-1.0); MONOCYTE% 8.4 % (3.0-12.0); NEUTROPHIL# 10.9 X10e3 (1.5-7.1); NEUTROPHIL% 79.6 % (40-75); PLATELET COUNT 192 X10e3 (140-420); RED BLOOD COUNT 2.78 X10e (3.90-5.60); RED CELL DISTRIBUTION WIDTH 18.9 % (11.0-15.5); WHITE BLOOD COUNT 13.8 X10e3 (4.0-10.5)
[2017-02-01 06:23] LABS: DIFF IND NO
[2017-02-01 07:28] LABS: CALCIUM SERUM 8.4 mg/dL (8.4-10.2); CREATININE SERUM 6.7 mg/dL (0.6-1.4); GLOM FILT RATE Estimated 8.9 mL/min (>60); POTASSIUM 3.9 mmol/L (3.5-5.1)
[2017-02-01 07:30] LABS: BUN/CREATININE RATIO 22.08
[2017-02-02 04:13] LABS: ARTERIAL BLD GAS O2 SATURATION 95.9 % (90.0-100.0); ARTERIAL BLOOD GAS CARBOXY HB 0.9 %sat (0.0-9.0); ARTERIAL BLOOD GAS HCO3 14.7 mmol/L; ARTERIAL BLOOD GAS MET HB 0.8 %sat (0.0-2.0); ARTERIAL BLOOD GAS PCO2 35.8 mmHg (35.0-45.0); ARTERIAL BLOOD GAS pH 7.222 (7.350-7.450)
[2017-02-02 04:20] LABS: ARTERIAL BLOOD GAS ALLEN TEST NORMAL; ARTERIAL BLOOD GAS ART SITE RIGHT RADIAL; ARTERIAL BLOOD GAS DELIVERY VENT; ARTERIAL BLOOD GAS VENT MODE SIMV; ARTERIAL DRAW? YES
[2017-02-02 05:22] LABS: PARTIAL THROMBOPLASTIN TIME 22.1 SECONDS (23.5-31.3); PROTHROMBIN TIME (PATIENT) 11.1 SECONDS (10.0-11.7)
[2017-02-02 05:31] LABS: BASOPHIL# 0.1 X10e3 (0-0.3); BASOPHIL% 0.8 % (0-2.5); EOSINOPHIL# 0.3 X10e3 (0-0.7); EOSINOPHIL% 2.1 % (0.0-7.0); HEMATOCRIT 25.5 % (38.0-50.0); HEMOGLOBIN 8.1 gm/dL (13.0-16.0); LYMPHOCYTE# 1.2 X10e3 (1.0-3.5); LYMPHOCYTE% 9.8 % (17.0-45.0); MEAN CELL VOLUME 88.6 FL (83-96); MEAN CORPUSCULAR HEMOGLOBIN 28.1 PG (28-34); MEAN CORPUSCULAR HGB CONC 31.7 g/dL (30-36); MEAN PLATELET VOLUME 8.9 FL (6.5-11.5); MONOCYTE# 1.2 X10e3 (0-1.0); NEUTROPHIL# 9.5 X10e3 (1.5-7.1); NEUTROPHIL% 77.3 % (40-75); PLATELET COUNT 224 X10e3 (140-420); RED BLOOD COUNT 2.88 X10e (3.90-5.60); RED CELL DISTRIBUTION WIDTH 18.9 % (11.0-15.5); WHITE BLOOD COUNT 12.3 X10e3 (4.0-10.5)
[2017-02-02 05:34] LABS: DIFF IND NO
[2017-02-03 04:17] LABS: ARTERIAL BLD GAS O2 SATURATION 95.4 % (90.0-100.0); ARTERIAL BLOOD GAS CARBOXY HB 1.3 %sat (0.0-9.0); ARTERIAL BLOOD GAS HCO3 18.8 mmol/L; ARTERIAL BLOOD GAS MET HB 0.7 %sat (0.0-2.0); ARTERIAL BLOOD GAS PCO2 41.2 mmHg (35.0-45.0); ARTERIAL BLOOD GAS pH 7.266 (7.350-7.450)
[2017-02-03 04:22] LABS: ARTERIAL BLOOD GAS ALLEN TEST NORMAL; ARTERIAL BLOOD GAS ART SITE RIGHT RADIAL; ARTERIAL BLOOD GAS DELIVERY VENT; ARTERIAL BLOOD GAS VENT MODE SIMV; ARTERIAL DRAW? YES
[2017-02-03 04:47] LABS: HEMATOCRIT 24.6 % (38.0-50.0); HEMOGLOBIN 7.9 gm/dL (13.0-16.0); MEAN CELL VOLUME 86.8 FL (83-96); MEAN CORPUSCULAR HEMOGLOBIN 27.8 PG (28-34); MEAN PLATELET VOLUME 8.5 FL (6.5-11.5); RED BLOOD COUNT 2.84 X10e (3.90-5.60); RED CELL DISTRIBUTION WIDTH 18.8 % (11.0-15.5); WHITE BLOOD COUNT 9.9 X10e3 (4.0-10.5)
[2017-02-03 04:49] LABS: INR 1.1; PARTIAL THROMBOPLASTIN TIME 23.2 SECONDS (23.5-31.3); PROTHROMBIN TIME (PATIENT) 12.2 SECONDS (10.0-11.7)
[2017-02-03 10:08] LABS: ALBUMIN SERUM 2.5 g/dL (3.5-5.0); BILIRUBIN,TOTAL 0.5 mg/dL (0.2-2.0); BUN/CREATININE RATIO 27.36; CALCIUM SERUM 7.8 mg/dL (8.4-10.2); CREATININE SERUM 7.2 mg/dL (0.6-1.4); GLOM FILT RATE Estimated 8.1 mL/min (>60); PROTEIN TOTAL SERUM 6.4 g/dL (6.0-8.3)
[2017-02-04 04:09] LABS: ARTERIAL BLD GAS O2 SATURATION 95.5 % (90.0-100.0); ARTERIAL BLOOD GAS CARBOXY HB 1.2 %sat (0.0-9.0); ARTERIAL BLOOD GAS HCO3 24.4 mmol/L; ARTERIAL BLOOD GAS MET HB 1.4 %sat (0.0-2.0); ARTERIAL BLOOD GAS PCO2 39.2 mmHg (35.0-45.0); ARTERIAL BLOOD GAS PO2 95.1 mmHg (80.0-100); ARTERIAL BLOOD GAS pH 7.403 (7.350-7.450)
[2017-02-04 04:11] LABS: ARTERIAL BLOOD GAS ALLEN TEST NORMAL; ARTERIAL BLOOD GAS ART SITE RIGHT RADIAL; ARTERIAL BLOOD GAS DELIVERY VENT; ARTERIAL BLOOD GAS VENT MODE AC; ARTERIAL DRAW? YES
[2017-02-04 06:18] LABS: BASOPHIL# 0.1 X10e3 (0-0.3); EOSINOPHIL# 0.1 X10e3 (0-0.7); EOSINOPHIL% 0.9 % (0.0-7.0); HEMATOCRIT 21.2 % (38.0-50.0); LYMPHOCYTE# 1.2 X10e3 (1.0-3.5); LYMPHOCYTE% 14.3 % (17.0-45.0); MEAN CELL VOLUME 87.3 FL (83-96); MEAN CORPUSCULAR HGB CONC 32.1 g/dL (30-36); MEAN PLATELET VOLUME 9.4 FL (6.5-11.5); MONOCYTE% 12.5 % (3.0-12.0); NEUTROPHIL# 5.9 X10e3 (1.5-7.1); NEUTROPHIL% 71.3 % (40-75); PLATELET COUNT 200 X10e3 (140-420); RED BLOOD COUNT 2.43 X10e (3.90-5.60); RED CELL DISTRIBUTION WIDTH 23.2 % (11.0-15.5); WHITE BLOOD COUNT 8.3 X10e3 (4.0-10.5)
[2017-02-04 06:55] LABS: BILIRUBIN,TOTAL 0.2 mg/dL (0.2-2.0); BUN/CREATININE RATIO 29.75; GLOM FILT RATE Estimated 16.6 mL/min (>60); PROTEIN TOTAL SERUM 6.1 g/dL (6.0-8.3)
[2017-02-04 06:56] LABS: POTASSIUM 3.7 mmol/L (3.5-5.1)
[2017-02-04 07:10] LABS: DIFF IND YES; HEMOGLOBIN 6.8 gm/dL (13.0-16.0)
[2017-02-04 07:44] LABS: PLATELET ESTIMATE NORMAL (NORMAL)
[2017-02-04 07:46] LABS: POIKILOCYTOSIS SL
[2017-02-05 04:34] LABS: ARTERIAL BLD GAS O2 SATURATION 97.3 % (90.0-100.0); ARTERIAL BLOOD GAS HCO3 20.9 mmol/L; ARTERIAL BLOOD GAS MET HB 0.8 %sat (0.0-2.0); ARTERIAL BLOOD GAS pH 7.397 (7.350-7.450)
[2017-02-05 04:37] LABS: ARTERIAL BLOOD GAS ALLEN TEST NORMAL; ARTERIAL BLOOD GAS ART SITE LEFT RADIAL; ARTERIAL BLOOD GAS DELIVERY VENT; ARTERIAL BLOOD GAS VENT MODE AC; ARTERIAL DRAW? YES
[2017-02-05 06:22] LABS: ALBUMIN SERUM 3.5 g/dL (3.5-5.0); BILIRUBIN,TOTAL 0.9 mg/dL (0.2-2.0); CALCIUM SERUM 8.6 mg/dL (8.4-10.2); CREATININE SERUM 2.6 mg/dL (0.6-1.4); GLOM FILT RATE Estimated 27.9 mL/min (>60); MAGNESIUM 2.2 mg/dL (1.6-3.0); PHOSPHOROUS 5.7 mg/dL (2.5-4.6); POTASSIUM 3.5 mmol/L (3.5-5.1); PROTEIN TOTAL SERUM 6.9 g/dL (6.0-8.3)
[2017-02-05 06:29] LABS: INR 1.1; PARTIAL THROMBOPLASTIN TIME 30.6 SECONDS (23.5-31.3); PROTHROMBIN TIME (PATIENT) 11.4 SECONDS (10.0-11.7)
[2017-02-05 07:15] LABS: BASOPHIL# 0.1 X10e3 (0-0.3); BASOPHIL% 0.8 % (0-2.5); EOSINOPHIL# 0.3 X10e3 (0-0.7); EOSINOPHIL% 3.6 % (0.0-7.0); HEMATOCRIT 27.2 % (38.0-50.0); HEMOGLOBIN 8.7 gm/dL (13.0-16.0); LYMPHOCYTE# 0.9 X10e3 (1.0-3.5); MEAN CELL VOLUME 87.4 FL (83-96); MONOCYTE# 0.8 X10e3 (0-1.0); MONOCYTE% 10.7 % (3.0-12.0); NEUTROPHIL# 5.6 X10e3 (1.5-7.1); NEUTROPHIL% 72.9 % (40-75); PLATELET COUNT 169 X10e3 (140-420); RED BLOOD COUNT 3.11 X10e (3.90-5.60); RED CELL DISTRIBUTION WIDTH 19.8 % (11.0-15.5); WHITE BLOOD COUNT 7.7 X10e3 (4.0-10.5)
[2017-02-05 07:16] LABS: DIFF IND NO
[2017-02-06 05:49] LABS: ALBUMIN SERUM 4.2 g/dL (3.5-5.0); BUN/CREATININE RATIO 28.27; CALCIUM SERUM 9.5 mg/dL (8.4-10.2); CREATININE SERUM 2.9 mg/dL (0.6-1.4); GLOM FILT RATE Estimated 24.5 mL/min (>60); MAGNESIUM 2.3 mg/dL (1.6-3.0); PHOSPHOROUS 7.3 mg/dL (2.5-4.6); POTASSIUM 4.3 mmol/L (3.5-5.1)
[2017-02-06 07:41] LABS: HEMATOCRIT 37.3 % (38.0-50.0); MEAN CELL VOLUME 86.8 FL (83-96); MEAN CORPUSCULAR HEMOGLOBIN 27.5 PG (28-34); MEAN CORPUSCULAR HGB CONC 31.7 g/dL (30-36); MEAN PLATELET VOLUME 10.3 FL (6.5-11.5); RED BLOOD COUNT 4.29 X10e (3.90-5.60); RED CELL DISTRIBUTION WIDTH 20.8 % (11.0-15.5)
[2017-02-06 08:03] LABS: WHITE BLOOD COUNT 13.8 X10e3 (4.0-10.5)
[2017-02-06 08:06] LABS: HEMOGLOBIN 11.8 gm/dL (13.0-16.0)
[2017-02-06 08:21] LABS: INR 1.1; PARTIAL THROMBOPLASTIN TIME 28.2 SECONDS (23.5-31.3); PROTHROMBIN TIME (PATIENT) 11.5 SECONDS (10.0-11.7)
[2017-02-06 08:39] LABS: ARTERIAL BLD GAS O2 SATURATION 96.1 % (90.0-100.0); ARTERIAL BLOOD GAS CARBOXY HB 0.9 %sat (0.0-9.0); ARTERIAL BLOOD GAS HCO3 15.8 mmol/L; ARTERIAL BLOOD GAS MET HB 0.6 %sat (0.0-2.0); ARTERIAL BLOOD GAS PCO2 27.9 mmHg (35.0-45.0); ARTERIAL BLOOD GAS pH 7.361 (7.350-7.450)
[2017-02-06 08:40] LABS: ARTERIAL BLOOD GAS ALLEN TEST NORMAL; ARTERIAL BLOOD GAS ART SITE RIGHT RADIAL; ARTERIAL BLOOD GAS DELIVERY VENT; ARTERIAL BLOOD GAS VENT MODE SIMV; ARTERIAL DRAW? YES
[2017-02-06 15:54] LABS: ARTERIAL BLD GAS O2 SATURATION 93.1 % (90.0-100.0); ARTERIAL BLOOD GAS CARBOXY HB 0.9 %sat (0.0-9.0); ARTERIAL BLOOD GAS HCO3 14.2 mmol/L; ARTERIAL BLOOD GAS MET HB 0.7 %sat (0.0-2.0); ARTERIAL BLOOD GAS PO2 90.2 mmHg (80.0-100); ARTERIAL BLOOD GAS pH 7.217 (7.350-7.450)
[2017-02-06 15:55] LABS: ARTERIAL BLOOD GAS ART SITE ARTERIAL LINE; ARTERIAL BLOOD GAS DELIVERY VENT; ARTERIAL BLOOD GAS VENT MODE A/C; ARTERIAL DRAW? YES
[2017-02-06 18:16] LABS: ARTERIAL BLD GAS O2 SATURATION 93.3 % (90.0-100.0); ARTERIAL BLOOD GAS HCO3 14.3 mmol/L; ARTERIAL BLOOD GAS MET HB 0.6 %sat (0.0-2.0); ARTERIAL BLOOD GAS PCO2 34.9 mmHg (35.0-45.0); ARTERIAL BLOOD GAS PO2 87.9 mmHg (80.0-100)
[2017-02-06 18:17] LABS: ARTERIAL BLOOD GAS ART SITE ARTERIAL LINE; ARTERIAL BLOOD GAS DELIVERY VENT; ARTERIAL DRAW? YES
[2017-02-06 18:18] LABS: ARTERIAL BLOOD GAS VENT MODE AC
[2017-02-06 19:02] LABS: CALCIUM SERUM 8.8 mg/dL (8.4-10.2); CREATININE SERUM 4.6 mg/dL (0.6-1.4)
[2017-02-06 19:06] LABS: BUN/CREATININE RATIO 25.21; POTASSIUM 4.5 mmol/L (3.5-5.1)
[2017-02-06 22:16] LABS: URINE APPEARANCE CLOUDY; URINE BLOOD 3+ (NEG); URINE COLOR DK YELLOW; URINE GLUCOSE NEG (NEG); URINE KETONE TRACE (NEG); URINE LEUKOCYTE ESTERASE 2+ (NEG); URINE NITRATE NEG (NEG); URINE PROTEIN 2+ (NEG); URINE SPECIFIC GRAVITY 1.027 (1.003-1.035)
[2017-02-06 22:18] LABS: URINE BACTERIA AUWI NEG (NEGATIVE); URINE SQUAMOUS EPITHELIAL CELL NONE SEEN /[HPF]; UWBCS1 AUWI 25-50 (0-5)
[2017-02-06 22:19] LABS: URINE BILIRUBIN NEG (NEG)
[2017-02-07 04:31] LABS: BASOPHIL# 0.2 X10e3 (0-0.3); BASOPHIL% 1.1 % (0-2.5); EOSINOPHIL# 0.1 X10e3 (0-0.7); EOSINOPHIL% 0.5 % (0.0-7.0); HEMATOCRIT 38.5 % (38.0-50.0); HEMOGLOBIN 11.7 gm/dL (13.0-16.0); LYMPHOCYTE# 1.8 X10e3 (1.0-3.5); LYMPHOCYTE% 11.2 % (17.0-45.0); MEAN CORPUSCULAR HGB CONC 30.4 g/dL (30-36); MEAN PLATELET VOLUME 10.5 FL (6.5-11.5); MONOCYTE% 12.3 % (3.0-12.0); NEUTROPHIL% 74.9 % (40-75); PLATELET COUNT 342 X10e3 (140-420); RED BLOOD COUNT 4.32 X10e (3.90-5.60); RED CELL DISTRIBUTION WIDTH 20.6 % (11.0-15.5)
[2017-02-07 04:31] LABS: ARTERIAL BLD GAS O2 SATURATION 95.9 % (90.0-100.0); ARTERIAL BLOOD GAS CARBOXY HB 0.8 %sat (0.0-9.0); ARTERIAL BLOOD GAS HCO3 14.2 mmol/L; ARTERIAL BLOOD GAS MET HB 0.6 %sat (0.0-2.0)
[2017-02-07 04:36] LABS: CALCIUM SERUM 8.3 mg/dL (8.4-10.2)
[2017-02-07 04:38] LABS: DIFF IND NO
[2017-02-07 04:40] LABS: POTASSIUM 6.9 mmol/L (3.5-5.1)
[2017-02-07 04:42] LABS: ARTERIAL BLOOD GAS pH 7.108 (7.350-7.450)
[2017-02-07 04:43] LABS: ARTERIAL BLOOD GAS ART SITE ARTERIAL LINE; ARTERIAL BLOOD GAS DELIVERY VENT; ARTERIAL BLOOD GAS VENT MODE AC; ARTERIAL DRAW? YES
[2017-02-07 04:58] LABS: ALBUMIN SERUM 4.1 g/dL (3.5-5.0); CREATININE SERUM 5.5 mg/dL (0.6-1.4); GLOM FILT RATE Estimated 11.3 mL/min (>60)
[2017-02-07 04:59] LABS: BUN/CREATININE RATIO 26.9
[2017-02-07 05:00] LABS: PHOSPHOROUS 18.3 mg/dL (2.5-4.6)
[2017-02-07 05:23] LABS: CALCIUM SERUM 8.4 mg/dL (8.4-10.2); CREATININE SERUM 5.5 mg/dL (0.6-1.4); GLOM FILT RATE Estimated 11.3 mL/min (>60)
[2017-02-07 05:35] LABS: BUN/CREATININE RATIO 26.9
[2017-02-07 05:36] LABS: POTASSIUM 6.8 mmol/L (3.5-5.1)
[2017-02-07 07:04] LABS: ARTERIAL BLD GAS O2 SATURATION 96.6 % (90.0-100.0); ARTERIAL BLOOD GAS CARBOXY HB 0.8 %sat (0.0-9.0); ARTERIAL BLOOD GAS HCO3 12.9 mmol/L; ARTERIAL BLOOD GAS MET HB 0.7 %sat (0.0-2.0); ARTERIAL BLOOD GAS PCO2 35.3 mmHg (35.0-45.0)
[2017-02-07 07:06] LABS: ARTERIAL BLOOD GAS ART SITE ARTERIAL LINE; ARTERIAL BLOOD GAS DELIVERY VENT; ARTERIAL BLOOD GAS VENT MODE AC; ARTERIAL BLOOD GAS pH 7.171 (7.350-7.450); ARTERIAL DRAW? YES
[2017-02-07 15:53] LABS: BUN/CREATININE RATIO 25.86; CREATININE SERUM 2.9 mg/dL (0.6-1.4); GLOM FILT RATE Estimated 24.5 mL/min (>60)
[2017-02-07 15:54] LABS: POTASSIUM 4.9 mmol/L (3.5-5.1)
[2017-02-08 04:39] LABS: BASOPHIL# 0.2 X10e3 (0-0.3); BASOPHIL% 1.3 % (0-2.5); EOSINOPHIL# 0.4 X10e3 (0-0.7); HEMATOCRIT 30.6 % (38.0-50.0); LYMPHOCYTE# 1.6 X10e3 (1.0-3.5); LYMPHOCYTE% 11.7 % (17.0-45.0); MEAN CELL VOLUME 87.8 FL (83-96); MEAN CORPUSCULAR HEMOGLOBIN 27.8 PG (28-34); MEAN CORPUSCULAR HGB CONC 31.6 g/dL (30-36); MEAN PLATELET VOLUME 10.5 FL (6.5-11.5); MONOCYTE# 1.3 X10e3 (0-1.0); MONOCYTE% 9.3 % (3.0-12.0); NEUTROPHIL# 10.6 X10e3 (1.5-7.1); NEUTROPHIL% 74.7 % (40-75); PLATELET COUNT 239 X10e3 (140-420); RED BLOOD COUNT 3.49 X10e (3.90-5.60); RED CELL DISTRIBUTION WIDTH 21.4 % (11.0-15.5); WHITE BLOOD COUNT 14.1 X10e3 (4.0-10.5)
[2017-02-08 04:40] LABS: HEMOGLOBIN 9.7 gm/dL (13.0-16.0)
[2017-02-08 04:41] LABS: DIFF IND NO
[2017-02-08 04:50] LABS: ARTERIAL BLD GAS O2 SATURATION 96.3 % (90.0-100.0); ARTERIAL BLOOD GAS CARBOXY HB 0.7 %sat (0.0-9.0); ARTERIAL BLOOD GAS HCO3 18.2 mmol/L; ARTERIAL BLOOD GAS MET HB 1.1 %sat (0.0-2.0); ARTERIAL BLOOD GAS PCO2 34.5 mmHg (35.0-45.0)
[2017-02-08 04:56] LABS: ARTERIAL BLOOD GAS ART SITE ARTERIAL LINE; ARTERIAL BLOOD GAS DELIVERY VENT; ARTERIAL BLOOD GAS VENT MODE AC; ARTERIAL DRAW? YES
[2017-02-08 04:56] LABS: ALBUMIN SERUM 3.3 g/dL (3.5-5.0); BILIRUBIN,TOTAL 0.3 mg/dL (0.2-2.0); BUN/CREATININE RATIO 32.72; CALCIUM SERUM 8.2 mg/dL (8.4-10.2); CREATININE SERUM 3.3 mg/dL (0.6-1.4); GLOM FILT RATE Estimated 20.9 mL/min (>60); MAGNESIUM 2.3 mg/dL (1.6-3.0); POTASSIUM 5.1 mmol/L (3.5-5.1); PROTEIN TOTAL SERUM 6.9 g/dL (6.0-8.3)
[2017-02-08 04:57] LABS: PHOSPHOROUS 9.8 mg/dL (2.5-4.6)
[2017-02-09 04:21] LABS: ARTERIAL BLD GAS O2 SATURATION 95.1 % (90.0-100.0); ARTERIAL BLOOD GAS HCO3 23.2 mmol/L; ARTERIAL BLOOD GAS MET HB 0.9 %sat (0.0-2.0); ARTERIAL BLOOD GAS PCO2 33.6 mmHg (35.0-45.0); ARTERIAL BLOOD GAS PO2 88.2 mmHg (80.0-100); ARTERIAL BLOOD GAS pH 7.448 (7.350-7.450)
[2017-02-09 04:22] LABS: ARTERIAL BLOOD GAS ART SITE ARTERIAL LINE; ARTERIAL BLOOD GAS DELIVERY VENT; ARTERIAL BLOOD GAS VENT MODE AC; ARTERIAL DRAW? YES
[2017-02-09 05:28] LABS: BASOPHIL# 0.2 X10e3 (0-0.3); BASOPHIL% 1.2 % (0-2.5); EOSINOPHIL# 0.6 X10e3 (0-0.7); EOSINOPHIL% 4.6 % (0.0-7.0); HEMATOCRIT 27.5 % (38.0-50.0); HEMOGLOBIN 8.8 gm/dL (13.0-16.0); LYMPHOCYTE# 1.5 X10e3 (1.0-3.5); LYMPHOCYTE% 11.1 % (17.0-45.0); MEAN CORPUSCULAR HEMOGLOBIN 27.8 PG (28-34); MEAN CORPUSCULAR HGB CONC 31.9 g/dL (30-36); MEAN PLATELET VOLUME 10.5 FL (6.5-11.5); MONOCYTE# 0.9 X10e3 (0-1.0); MONOCYTE% 6.7 % (3.0-12.0); NEUTROPHIL# 10.3 X10e3 (1.5-7.1); NEUTROPHIL% 76.4 % (40-75); PLATELET COUNT 180 X10e3 (140-420); RED BLOOD COUNT 3.16 X10e (3.90-5.60); RED CELL DISTRIBUTION WIDTH 21.5 % (11.0-15.5); WHITE BLOOD COUNT 13.5 X10e3 (4.0-10.5)
[2017-02-09 05:33] LABS: INR 1.1; PARTIAL THROMBOPLASTIN TIME 21.5 SECONDS (23.5-31.3); PROTHROMBIN TIME (PATIENT) 11.4 SECONDS (10.0-11.7)
[2017-02-09 05:41] LABS: DIFF IND NO
[2017-02-09 06:39] LABS: BUN/CREATININE RATIO 39.58; CALCIUM SERUM 8.4 mg/dL (8.4-10.2); CREATININE SERUM 2.4 mg/dL (0.6-1.4); GLOM FILT RATE Estimated 30.8 mL/min (>60); POTASSIUM 4.4 mmol/L (3.5-5.1)
[2017-02-09 09:44] LABS: ARTERIAL BLD GAS O2 SATURATION 95.4 % (90.0-100.0); ARTERIAL BLOOD GAS HCO3 25.5 mmol/L; ARTERIAL BLOOD GAS MET HB 0.7 %sat (0.0-2.0); ARTERIAL BLOOD GAS PCO2 38.8 mmHg (35.0-45.0); ARTERIAL BLOOD GAS PO2 92.2 mmHg (80.0-100); ARTERIAL BLOOD GAS pH 7.425 (7.350-7.450)
[2017-02-09 09:45] LABS: ARTERIAL BLOOD GAS ART SITE ARTERIAL LINE; ARTERIAL BLOOD GAS VENT MODE A/C; ARTERIAL DRAW? YES
[2017-02-10 04:14] LABS: ARTERIAL BLD GAS O2 SATURATION 97.2 % (90.0-100.0); ARTERIAL BLOOD GAS HCO3 28.4 mmol/L; ARTERIAL BLOOD GAS MET HB 0.5 %sat (0.0-2.0); ARTERIAL BLOOD GAS PCO2 41.5 mmHg (35.0-45.0); ARTERIAL BLOOD GAS pH 7.444 (7.350-7.450)
[2017-02-10 04:40] LABS: ARTERIAL BLOOD GAS ART SITE ARTERIAL LINE; ARTERIAL BLOOD GAS VENT MODE AC; ARTERIAL DRAW? NO
[2017-02-10 05:50] LABS: BASOPHIL# 0.1 X10e3 (0-0.3); BASOPHIL% 1.1 % (0-2.5); EOSINOPHIL# 0.5 X10e3 (0-0.7); EOSINOPHIL% 4.2 % (0.0-7.0); HEMATOCRIT 25.8 % (38.0-50.0); HEMOGLOBIN 8.2 gm/dL (13.0-16.0); LYMPHOCYTE# 1.3 X10e3 (1.0-3.5); LYMPHOCYTE% 11.4 % (17.0-45.0); MEAN CELL VOLUME 88.6 FL (83-96); MEAN CORPUSCULAR HGB CONC 31.6 g/dL (30-36); MEAN PLATELET VOLUME 10.6 FL (6.5-11.5); MONOCYTE# 0.9 X10e3 (0-1.0); MONOCYTE% 8.3 % (3.0-12.0); NEUTROPHIL# 8.5 X10e3 (1.5-7.1); PLATELET COUNT 162 X10e3 (140-420); RED BLOOD COUNT 2.92 X10e (3.90-5.60); RED CELL DISTRIBUTION WIDTH 22.6 % (11.0-15.5); WHITE BLOOD COUNT 11.3 X10e3 (4.0-10.5)
[2017-02-10 05:56] LABS: DIFF IND NO
[2017-02-10 06:31] LABS: ALBUMIN SERUM 3.1 g/dL (3.5-5.0); BILIRUBIN,TOTAL 0.5 mg/dL (0.2-2.0); BUN/CREATININE RATIO 30.95; CALCIUM SERUM 8.4 mg/dL (8.4-10.2); CREATININE SERUM 2.1 mg/dL (0.6-1.4); GLOM FILT RATE Estimated 36.1 mL/min (>60); MAGNESIUM 2.1 mg/dL (1.6-3.0); PHOSPHOROUS 5.7 mg/dL (2.5-4.6); POTASSIUM 3.3 mmol/L (3.5-5.1); PROTEIN TOTAL SERUM 6.9 g/dL (6.0-8.3)
[2017-02-11 04:20] LABS: ARTERIAL BLD GAS O2 SATURATION 97.4 % (90.0-100.0); ARTERIAL BLOOD GAS HCO3 26.4 mmol/L; ARTERIAL BLOOD GAS MET HB 0.6 %sat (0.0-2.0); ARTERIAL BLOOD GAS PCO2 40.4 mmHg (35.0-45.0); ARTERIAL BLOOD GAS pH 7.424 (7.350-7.450)
[2017-02-11 04:27] LABS: BASOPHIL# 0.1 X10e3 (0-0.3); BASOPHIL% 0.9 % (0-2.5); DIFF IND NO; EOSINOPHIL# 0.5 X10e3 (0-0.7); EOSINOPHIL% 5.4 % (0.0-7.0); HEMATOCRIT 25.5 % (38.0-50.0); HEMOGLOBIN 8.1 gm/dL (13.0-16.0); LYMPHOCYTE# 0.9 X10e3 (1.0-3.5); LYMPHOCYTE% 8.9 % (17.0-45.0); MEAN CELL VOLUME 88.9 FL (83-96); MEAN CORPUSCULAR HEMOGLOBIN 28.3 PG (28-34); MEAN CORPUSCULAR HGB CONC 31.8 g/dL (30-36); MEAN PLATELET VOLUME 10.4 FL (6.5-11.5); MONOCYTE% 9.8 % (3.0-12.0); NEUTROPHIL# 7.7 X10e3 (1.5-7.1); PLATELET COUNT 181 X10e3 (140-420); RED BLOOD COUNT 2.87 X10e (3.90-5.60); RED CELL DISTRIBUTION WIDTH 21.8 % (11.0-15.5); WHITE BLOOD COUNT 10.2 X10e3 (4.0-10.5)
[2017-02-11 04:29] LABS: ARTERIAL DRAW? NO
[2017-02-11 04:30] LABS: ARTERIAL BLOOD GAS ART SITE ARTERIAL LINE; ARTERIAL BLOOD GAS VENT MODE AC
[2017-02-11 04:50] LABS: BUN/CREATININE RATIO 48.42; CALCIUM SERUM 8.6 mg/dL (8.4-10.2); CREATININE SERUM 1.9 mg/dL (0.6-1.4); GLOM FILT RATE Estimated 40.8 mL/min (>60); POTASSIUM 3.3 mmol/L (3.5-5.1)
[2017-02-12 04:21] LABS: ARTERIAL BLD GAS O2 SATURATION 97.8 % (90.0-100.0); ARTERIAL BLOOD GAS CARBOXY HB 1.2 %sat (0.0-9.0); ARTERIAL BLOOD GAS HCO3 24.5 mmol/L; ARTERIAL BLOOD GAS MET HB 0.6 %sat (0.0-2.0); ARTERIAL BLOOD GAS PCO2 33.9 mmHg (35.0-45.0); ARTERIAL BLOOD GAS pH 7.467 (7.350-7.450)
[2017-02-12 04:31] LABS: ARTERIAL BLOOD GAS ALLEN TEST NORMAL; ARTERIAL BLOOD GAS ART SITE LEFT RADIAL; ARTERIAL BLOOD GAS DELIVERY VENT; ARTERIAL BLOOD GAS VENT MODE SIMV; ARTERIAL DRAW? YES
[2017-02-12 05:25] LABS: BASOPHIL# 0.1 X10e3 (0-0.3); BASOPHIL% 1.3 % (0-2.5); EOSINOPHIL# 0.2 X10e3 (0-0.7); EOSINOPHIL% 1.9 % (0.0-7.0); HEMATOCRIT 27.6 % (38.0-50.0); HEMOGLOBIN 8.9 gm/dL (13.0-16.0); LYMPHOCYTE# 0.9 X10e3 (1.0-3.5); LYMPHOCYTE% 8.7 % (17.0-45.0); MEAN CELL VOLUME 87.7 FL (83-96); MEAN CORPUSCULAR HEMOGLOBIN 28.2 PG (28-34); MEAN CORPUSCULAR HGB CONC 32.2 g/dL (30-36); MEAN PLATELET VOLUME 10.4 FL (6.5-11.5); MONOCYTE# 1.1 X10e3 (0-1.0); NEUTROPHIL# 7.8 X10e3 (1.5-7.1); NEUTROPHIL% 77.1 % (40-75); PLATELET COUNT 203 X10e3 (140-420); RED BLOOD COUNT 3.15 X10e (3.90-5.60); RED CELL DISTRIBUTION WIDTH 21.9 % (11.0-15.5); WHITE BLOOD COUNT 10.1 X10e3 (4.0-10.5)
[2017-02-12 06:21] LABS: ALBUMIN SERUM 2.9 g/dL (3.5-5.0); BILIRUBIN,TOTAL 0.7 mg/dL (0.2-2.0); BUN/CREATININE RATIO 46.92; CALCIUM SERUM 8.8 mg/dL (8.4-10.2); CREATININE SERUM 1.3 mg/dL (0.6-1.4); GLOM FILT RATE Estimated 64.5 mL/min (>60); MAGNESIUM 1.8 mg/dL (1.6-3.0); POTASSIUM 3.4 mmol/L (3.5-5.1); PROTEIN TOTAL SERUM 7.6 g/dL (6.0-8.3)
[2017-02-12 06:43] LABS: DIFF IND NO
[2017-02-13 04:13] LABS: ARTERIAL BLD GAS O2 SATURATION 97.8 % (90.0-100.0); ARTERIAL BLOOD GAS CARBOXY HB 1.1 %sat (0.0-9.0); ARTERIAL BLOOD GAS HCO3 24.7 mmol/L; ARTERIAL BLOOD GAS MET HB 0.9 %sat (0.0-2.0); ARTERIAL BLOOD GAS PCO2 42.5 mmHg (35.0-45.0); ARTERIAL BLOOD GAS pH 7.374 (7.350-7.450)
[2017-02-13 04:17] LABS: ARTERIAL BLOOD GAS ALLEN TEST NORMAL; ARTERIAL BLOOD GAS ART SITE LEFT RADIAL; ARTERIAL BLOOD GAS DELIVERY VENT; ARTERIAL BLOOD GAS VENT MODE AC; ARTERIAL DRAW? YES
[2017-02-13 05:38] LABS: HEMATOCRIT 27.8 % (38.0-50.0); HEMOGLOBIN 8.6 gm/dL (13.0-16.0); MEAN CELL VOLUME 89.8 FL (83-96); MEAN CORPUSCULAR HEMOGLOBIN 27.7 PG (28-34); MEAN CORPUSCULAR HGB CONC 30.9 g/dL (30-36); MEAN PLATELET VOLUME 10.4 FL (6.5-11.5); RED BLOOD COUNT 3.09 X10e (3.90-5.60); RED CELL DISTRIBUTION WIDTH 21.4 % (11.0-15.5); WHITE BLOOD COUNT 10.4 X10e3 (4.0-10.5)
[2017-02-13 06:33] LABS: BUN/CREATININE RATIO 58.12; CREATININE SERUM 1.6 mg/dL (0.6-1.4); GLOM FILT RATE Estimated 49.9 mL/min (>60); POTASSIUM 3.2 mmol/L (3.5-5.1)
[2017-02-13 09:06] LABS: URINE CREATININE 91.4 mg/dL
[2017-02-13 09:10] LABS: URINE 24 HOUR CREATININE CALC 1.2 G/24HR (0.7-2.0)
[2017-02-14 04:04] LABS: ARTERIAL BLD GAS O2 SATURATION 97.7 % (90.0-100.0); ARTERIAL BLOOD GAS HCO3 25.8 mmol/L; ARTERIAL BLOOD GAS MET HB 1.1 %sat (0.0-2.0); ARTERIAL BLOOD GAS PCO2 42.6 mmHg (35.0-45.0); ARTERIAL BLOOD GAS pH 7.391 (7.350-7.450)
[2017-02-14 04:14] LABS: ARTERIAL BLOOD GAS ART SITE LEFT BRACHIAL; ARTERIAL BLOOD GAS DELIVERY VENT; ARTERIAL BLOOD GAS VENT MODE AC; ARTERIAL DRAW? YES
[2017-02-14 05:26] LABS: BASOPHIL# 0.2 X10e3 (0-0.3); BASOPHIL% 2.3 % (0-2.5); EOSINOPHIL# 0.5 X10e3 (0-0.7); EOSINOPHIL% 5.9 % (0.0-7.0); HEMATOCRIT 26.4 % (38.0-50.0); HEMOGLOBIN 8.2 gm/dL (13.0-16.0); LYMPHOCYTE# 0.8 X10e3 (1.0-3.5); LYMPHOCYTE% 10.2 % (17.0-45.0); MEAN CELL VOLUME 88.7 FL (83-96); MEAN CORPUSCULAR HEMOGLOBIN 27.6 PG (28-34); MEAN CORPUSCULAR HGB CONC 31.2 g/dL (30-36); MEAN PLATELET VOLUME 9.4 FL (6.5-11.5); MONOCYTE# 0.7 X10e3 (0-1.0); MONOCYTE% 8.5 % (3.0-12.0); NEUTROPHIL# 5.8 X10e3 (1.5-7.1); NEUTROPHIL% 73.1 % (40-75); PLATELET COUNT 203 X10e3 (140-420); RED BLOOD COUNT 2.98 X10e (3.90-5.60); RED CELL DISTRIBUTION WIDTH 20.3 % (11.0-15.5); WHITE BLOOD COUNT 7.9 X10e3 (4.0-10.5)
[2017-02-14 05:41] LABS: DIFF IND NO
[2017-02-14 06:42] LABS: ALBUMIN SERUM 2.6 g/dL (3.5-5.0); BILIRUBIN,TOTAL 0.5 mg/dL (0.2-2.0); BUN/CREATININE RATIO 77.85; CALCIUM SERUM 8.7 mg/dL (8.4-10.2); CREATININE SERUM 1.4 mg/dL (0.6-1.4); GLOM FILT RATE Estimated 58.6 mL/min (>60); MAGNESIUM 1.7 mg/dL (1.6-3.0); POTASSIUM 3.1 mmol/L (3.5-5.1); PROTEIN TOTAL SERUM 6.5 g/dL (6.0-8.3)
[2017-02-15 03:58] LABS: ARTERIAL BLD GAS O2 SATURATION 98.2 % (90.0-100.0); ARTERIAL BLOOD GAS CARBOXY HB 0.9 %sat (0.0-9.0); ARTERIAL BLOOD GAS HCO3 26.9 mmol/L; ARTERIAL BLOOD GAS MET HB 0.7 %sat (0.0-2.0); ARTERIAL BLOOD GAS PCO2 45.7 mmHg (35.0-45.0); ARTERIAL BLOOD GAS pH 7.378 (7.350-7.450)
[2017-02-15 03:59] LABS: ARTERIAL BLOOD GAS ALLEN TEST NORMAL; ARTERIAL BLOOD GAS ART SITE RIGHT RADIAL; ARTERIAL BLOOD GAS DELIVERY VENT; ARTERIAL BLOOD GAS VENT MODE SIMV; ARTERIAL DRAW? YES
[2017-02-15 05:25] LABS: BASOPHIL# 0.2 X10e3 (0-0.3); BASOPHIL% 2.4 % (0-2.5); EOSINOPHIL# 0.4 X10e3 (0-0.7); EOSINOPHIL% 5.5 % (0.0-7.0); HEMATOCRIT 26.9 % (38.0-50.0); HEMOGLOBIN 8.2 gm/dL (13.0-16.0); LYMPHOCYTE# 1.2 X10e3 (1.0-3.5); LYMPHOCYTE% 16.3 % (17.0-45.0); MEAN CELL VOLUME 88.8 FL (83-96); MEAN CORPUSCULAR HEMOGLOBIN 27.2 PG (28-34); MEAN CORPUSCULAR HGB CONC 30.6 g/dL (30-36); MEAN PLATELET VOLUME 9.3 FL (6.5-11.5); MONOCYTE# 0.7 X10e3 (0-1.0); MONOCYTE% 9.6 % (3.0-12.0); NEUTROPHIL# 4.7 X10e3 (1.5-7.1); NEUTROPHIL% 66.2 % (40-75); PLATELET COUNT 201 X10e3 (140-420); RED BLOOD COUNT 3.03 X10e (3.90-5.60); RED CELL DISTRIBUTION WIDTH 20.8 % (11.0-15.5); WHITE BLOOD COUNT 7.1 X10e3 (4.0-10.5)
[2017-02-15 05:27] LABS: DIFF IND NO
[2017-02-15 06:59] LABS: ALBUMIN SERUM 2.8 g/dL (3.5-5.0); BILIRUBIN,TOTAL 0.4 mg/dL (0.2-2.0); BUN/CREATININE RATIO 95.83; CALCIUM SERUM 8.9 mg/dL (8.4-10.2); CREATININE SERUM 1.2 mg/dL (0.6-1.4); GLOM FILT RATE Estimated 70.6 mL/min (>60); PHOSPHOROUS 3.9 mg/dL (2.5-4.6); PROTEIN TOTAL SERUM 7.4 g/dL (6.0-8.3)
[2017-02-16 03:57] LABS: BASOPHIL# 0.1 X10e3 (0-0.3); DIFF IND NO; EOSINOPHIL# 0.4 X10e3 (0-0.7); EOSINOPHIL% 5.7 % (0.0-7.0); HEMATOCRIT 26.2 % (38.0-50.0); HEMOGLOBIN 8.1 gm/dL (13.0-16.0); LYMPHOCYTE# 1.6 X10e3 (1.0-3.5); MEAN CELL VOLUME 88.4 FL (83-96); MEAN CORPUSCULAR HEMOGLOBIN 27.2 PG (28-34); MEAN CORPUSCULAR HGB CONC 30.8 g/dL (30-36); MEAN PLATELET VOLUME 9.2 FL (6.5-11.5); MONOCYTE# 0.6 X10e3 (0-1.0); MONOCYTE% 9.4 % (3.0-12.0); NEUTROPHIL# 3.8 X10e3 (1.5-7.1); NEUTROPHIL% 57.9 % (40-75); PLATELET COUNT 192 X10e3 (140-420); RED BLOOD COUNT 2.97 X10e (3.90-5.60); RED CELL DISTRIBUTION WIDTH 21.4 % (11.0-15.5); WHITE BLOOD COUNT 6.5 X10e3 (4.0-10.5)
[2017-02-16 04:00] LABS: ARTERIAL BLD GAS O2 SATURATION 98.7 % (90.0-100.0); ARTERIAL BLOOD GAS CARBOXY HB 0.9 %sat (0.0-9.0); ARTERIAL BLOOD GAS HCO3 28.6 mmol/L; ARTERIAL BLOOD GAS MET HB 0.5 %sat (0.0-2.0); ARTERIAL BLOOD GAS PCO2 45.5 mmHg (35.0-45.0); ARTERIAL BLOOD GAS pH 7.407 (7.350-7.450)
[2017-02-16 04:01] LABS: ARTERIAL BLOOD GAS ART SITE RIGHT BRACHIAL; ARTERIAL BLOOD GAS DELIVERY VENT; ARTERIAL BLOOD GAS VENT MODE SIMV; ARTERIAL DRAW? YES
[2017-02-16 04:34] LABS: ALBUMIN SERUM 2.8 g/dL (3.5-5.0); BILIRUBIN,TOTAL 0.5 mg/dL (0.2-2.0); CALCIUM SERUM 8.9 mg/dL (8.4-10.2); MAGNESIUM 1.8 mg/dL (1.6-3.0); PHOSPHOROUS 3.2 mg/dL (2.5-4.6); POTASSIUM 3.9 mmol/L (3.5-5.1); PROTEIN TOTAL SERUM 7.2 g/dL (6.0-8.3)
[2017-02-16 07:49] LABS: ARTERIAL BLD GAS O2 SATURATION 98.6 % (90.0-100.0); ARTERIAL BLOOD GAS ALLEN TEST NORMAL; ARTERIAL BLOOD GAS ART SITE LEFT RADIAL; ARTERIAL BLOOD GAS CARBOXY HB 0.8 %sat (0.0-9.0); ARTERIAL BLOOD GAS DELIVERY VENT; ARTERIAL BLOOD GAS HCO3 28.3 mmol/L; ARTERIAL BLOOD GAS MET HB 0.4 %sat (0.0-2.0); ARTERIAL BLOOD GAS PCO2 46.8 mmHg (35.0-45.0); ARTERIAL BLOOD GAS VENT MODE SIMV; ARTERIAL BLOOD GAS pH 7.391 (7.350-7.450); ARTERIAL DRAW? YES
== END 2017-02-16 17:00 | DRG 4 ==
LOC: CED 16:33 → CICCU2 19:15 → CEDOF 19:15 → CED 19:44 → CICCU2 23:34 → CEDOF 23:34 → CICCU2 01-20 08:21 → CICCU3 02-14 08:05
PROVIDERS: Emergency Medicine; Family Medicine; Internal Medicine; Internal Medicine Cardiovascular Disease; Internal Medicine Gastroenterology; Internal Medicine Nephrology; Internal Medicine Pulmonary Disease; Nurse Practitioner Family; Radiology Diagnostic Radiology; Registered Nurse; Surgery
PROC: 0BH17EZ Insertion of Endotracheal Airway into Trachea, Via Natural or Artificial Opening (ICD-10-PCS; principal; 2017-01-19)
PROC: 5A1955Z Respiratory Ventilation, Greater than 96 Consecutive Hours (ICD-10-PCS; 2017-01-19)
PROC: 05H333Z Insertion of Infusion Device into Right Innominate Vein, Percutaneous Approach (ICD-10-PCS; 2017-01-19)
PROC: B51VYZA Fluoroscopy of Other Veins using Other Contrast, Guidance (ICD-10-PCS; 2017-01-19)
PROC: 05HM33Z Insertion of Infusion Device into Right Internal Jugular Vein, Percutaneous Approach (ICD-10-PCS; 2017-01-23)
PROC: B543ZZA Ultrasonography of Right Jugular Veins, Guidance (ICD-10-PCS; 2017-01-23)
PROC: 05HN33Z Insertion of Infusion Device into Left Internal Jugular Vein, Percutaneous Approach (ICD-10-PCS; 2017-01-25)
PROC: B544ZZA Ultrasonography of Left Jugular Veins, Guidance (ICD-10-PCS; 2017-01-25)
PROC: B24BYZZ Ultrasonography of Heart with Aorta using Other Contrast (ICD-10-PCS; 2017-01-26)
PROC: 5A1D60Z (ICD-10-PCS; 2017-01-27)
PROC: 5A1955Z Respiratory Ventilation, Greater than 96 Consecutive Hours (ICD-10-PCS; 2017-02-01)
PROC: 0BH17EZ Insertion of Endotracheal Airway into Trachea, Via Natural or Artificial Opening (ICD-10-PCS; 2017-02-01)
PROC: 02H633Z Insertion of Infusion Device into Right Atrium, Percutaneous Approach (ICD-10-PCS; 2017-02-03)
PROC: B214YZZ Fluoroscopy of Right Heart using Other Contrast (ICD-10-PCS; 2017-02-03)
PROC: B244YZZ Ultrasonography of Right Heart using Other Contrast (ICD-10-PCS; 2017-02-03)
PROC: 30233N1 Transfusion of Nonautologous Red Blood Cells into Peripheral Vein, Percutaneous Approach (ICD-10-PCS; 2017-02-04)
PROC: 05HN33Z Insertion of Infusion Device into Left Internal Jugular Vein, Percutaneous Approach (ICD-10-PCS; 2017-02-06)
PROC: 0DH63UZ Insertion of Feeding Device into Stomach, Percutaneous Approach (ICD-10-PCS; 2017-02-09)
PROC: 0DJ08ZZ Inspection of Upper Intestinal Tract, Via Natural or Artificial Opening Endoscopic (ICD-10-PCS; 2017-02-09)
PROC: 0BB68ZX Excision of Right Lower Lobe Bronchus, Via Natural or Artificial Opening Endoscopic, Diagnostic (ICD-10-PCS; 2017-02-09)
PROC: 0BBB8ZX Excision of Left Lower Lobe Bronchus, Via Natural or Artificial Opening Endoscopic, Diagnostic (ICD-10-PCS; 2017-02-09)
PROC: 0BB58ZX Excision of Right Middle Lobe Bronchus, Via Natural or Artificial Opening Endoscopic, Diagnostic (ICD-10-PCS; 2017-02-09)
PROC: 0B113F4 Bypass Trachea to Cutaneous with Tracheostomy Device, Percutaneous Approach (ICD-10-PCS; 2017-02-09 07:30)
DX: A41.9 Sepsis, unspecified organism (principal); R65.21 Severe sepsis with septic shock; B37.1 Pulmonary candidiasis; I50.23 Acute on chronic systolic (congestive) heart failure; G92 Toxic encephalopathy; J18.9 Pneumonia, unspecified organism; G93.1 Anoxic brain damage, not elsewhere classified; I11.0 Hypertensive heart disease with heart failure; J96.01 Acute respiratory failure with hypoxia; N17.9 Acute kidney failure, unspecified; I42.9 Cardiomyopathy, unspecified; I47.1 Supraventricular tachycardia; E87.1 Hypo-osmolality and hyponatremia; E87.0 Hyperosmolality and hypernatremia; E03.9 Hypothyroidism, unspecified; F11.10 Opioid abuse, uncomplicated; Z79.82 Long term (current) use of aspirin; D64.9 Anemia, unspecified; R94.5 Abnormal results of liver function studies; E87.6 Hypokalemia; R19.7 Diarrhea, unspecified
CPT/HCPCS: 31500; 36556; 36600; 70450; 70551; 71010; 71250; 74000; 74176; 76770; 76937; 77001; 80048; 80053; 80061; 80069; 80076; 80202; 80307; 81003; 82308; 82550; 82553; 82570; 82803; 82947; 83036; 83605; 83735; 83880; 84100; 84443; 84484; 85025; 85027; 85610; 85730; 86705; 86706; 86707; 86803; 86850; 86900; 86901; 86923; 87040; 87070; 87077; 87086; 87102; 87106; 87116; 87186; 87205; 87206; 87340; 87341; 87350; 87449; 87493; 87517; 87522; 87806; 87899; 93005; 93306; 93308; 94002; 94003; 94640; 94760; 94761; 95816; 96374; 99291; C1750; C1769; C1894; C9113; J0171; J0330; J0692; J1250; J1580; J1644; J1650; J1815; J2020; J2185; J2248; J2250; J2310; J2543; J3370; P9016; P9047; Q4081